=== PATIENT | male | born 1940 | race Caucasian/White ===

== ENCOUNTER → 2017-01-06 | Day surgery (SDC) | payer OTHER ==
[2016-12-24 10:13] VITALS: Ht 168.9 cm; Wt 75.0 kg
[~2017-01-06] VITALS: Ht 168.9 cm; Wt 75.0 kg
[~2017-01-06] MED LIST: ASPEC81 PO; ATOR-24 PO; BRIM0.2S OPB; FLUT0.15; GLC/500 PO; LIDOCAINE HCL 2% 2 ML VIAL (20MG/ML) ONE; LISI-788 PO; MULT-351 PO; PROPOFOL IV EMULSION 10 MG/ML 20 ML VIAL IV ONE; SODIUM CHLORIDE 0.9% 500ML 500 ML IV ONE
--- NOTE | 2017-01-06 10:09 | Endo History and Physical ---
History & Physical Date of Service: Jan 06, 2017. Chief Complaint: 1 YR F/U TO COLON CA Referring Physician: DR HAMILTON History of Present Illness 76 yo CM who presents for colonoscopy secondary to history of colon polyp. Past Medical History Diabetes, Arthritis, High Cholesterol, Hypertension, Thyroid Disease Past Surgical History Hx Cardiac Surgery: No Hx Internal Defibrillator: No Hx Pacemaker: No Hx Abdominal Surgery: No Hx Post-Op Nausea and Vomiting: No Hx Cancer Surgery: Yes (PARTIAL COLON RESECTION) Hx Thoracic Surgery: No Hx Orthopedic: No Hx Urinary Tract Surgery: No Family History None Social History Smoking Status: Former Smoker Hx Substance Use: No Hx Alcohol Use: Yes (2-3 BEERS DAILY) Allergies Coded Allergies: No Known Allergies (Verified , NONE, 01/06/17) Current Medications Reported Home Medications Medications Dose Route/Sig Max Daily Dose Days Date Category Combigan (Brimonidine Tartrate-Timolol M) 1 Christine Christine 1 Drop OPB BID 12/24/16 Reported Multi Vitamin Mens (Multiple Vitamin) 1 Tab Tab 1 Tab PO QAM 08/25/15 Reported Flonase Allergy Relief (Fluticasone Propionate (Nasal)) 50 Mcg/Act Spr 2 [place] NA DAILY PRN 08/02/15 Reported Glucophage (Metformin Hcl) 500 Mg Tab 500 Mg PO BID 07/08/15 Reported Zestoretic 20MG/25MG (HCTZ/Lisinopril) Tab 1 Tab PO QAM 07/08/15 Reported Lipitor (Atorvastatin Calcium) 40 Mg Tab 40 Mg PO HS 07/08/15 Reported Ecotrin Or Generic * (Aspirin) 81 Mg Ectab 81 Mg PO QAM 10/25/10 Reported Vital Signs Weight (Kilograms): 75 Height (Feet): 5 Height (Inches): 6.5 Physical Exam General Appearance: WD/WN, no apparent distress Respiratory/Chest: Auscultation: breath sounds normal Cardiovascular: Heart Auscultation: RRR Abdomen: Bowel Sounds: normal Inspection & Palpation: soft, non-distended, no tenderness, guarding & rebound Assessment and Plan Assessment: 76 yo CM who presents for colonoscopy secondary to history of colon polyp. Plan: Proceed with colonoscopy.
--- NOTE | 2017-01-06 10:34 | Discharge Instructions ---
Endoscopy Patient Instructions Date / Procedure(s) Performed Jan 06, 2017. Colonoscopy Allergy Information Coded Allergies: No Known Allergies (Verified , NONE, 01/06/17) Discharge Date / Findings Jan 06, 2017. Diverticulosis Internal hemorrhoids Medication Instructions Stopped Medication(s): ASPIRIN 81MG LAST DOSE 01/03/17 OK to resume all medications today as prescribed Reported Home Medications Medications Dose Route/Sig Max Daily Dose Days Date Category Combigan (Brimonidine Tartrate-Timolol M) 1 Christine Christine 1 Drop OPB BID 12/24/16 Reported Multi Vitamin Mens (Multiple Vitamin) 1 Tab Tab 1 Tab PO QAM 08/25/15 Reported Flonase Allergy Relief (Fluticasone Propionate (Nasal)) 50 Mcg/Act Spr 2 [place] NA DAILY PRN 08/02/15 Reported Glucophage (Metformin Hcl) 500 Mg Tab 500 Mg PO BID 07/08/15 Reported Zestoretic 20MG/25MG (HCTZ/Lisinopril) Tab 1 Tab PO QAM 07/08/15 Reported Lipitor (Atorvastatin Calcium) 40 Mg Tab 40 Mg PO HS 07/08/15 Reported Ecotrin Or Generic * (Aspirin) 81 Mg Ectab 81 Mg PO QAM 10/25/10 Reported Provider Instructions Activity Restrictions - No exercising or heavy lifting for 24 hours. - Do not drink alcohol the day of the procedure. - Do not drive a car or operate machinery until the day after the procedure. - Do not make any important decisions or sign important papers in 24 hours after the procedure. Following Day: - Return to full activity which may include returning to work/school. Diet Start your diet with liquids and light foods (jello, soup, juice, toast). Then eat your usual diet if not nauseated. Treatment For Common After Affects For mild abdominal pain, bloating, or excessive gas: - Rest - Eat lightly - Lie on right side Follow-Up Information Follow-up with DR HAMILTON as scheduled Anesthesia Information What You Should Know You have had a procedure that required some medicine to reduce anxiety and discomfort. This treatment is called moderate sedation. After receiving the treatment, you may be sleepy, but you will be able to breathe on your own. The effects of the treatment may last for several hours. Follow these instructions along with Activity/Diet recommendations noted above: * Do NOT do anything where dizziness or clumsiness would be dangerous. * Rest quietly at home today, then you can be up and about tomorrow. * Have a responsible person stay with you the rest of today. * You may have had an I.V. today. If so, you may take the dressing off later today. Recommendations Call your doctor if: * Trouble breathing * Continuous vomiting for more than 24 hours * Temperature above 101 degrees * Severe abdominal pain or bloating * Pain not relieved by pain medicine ordered * There is increased drainage or redness from any incision * A large amount of rectal bleeding greater than 2-3 tablespoons. (If you had a polyp/s removed or have hemorrhoids, a small amount of blood - from the rectum is to be expected.) * You have any unanswered questions or concerns. IN THE EVENT OF A SERIOUS EMERGENCY, GO TO THE NEAREST EMERGENCY ROOM Your discharge instructions were prepared by provider Esteban Carin. Patient Instructions Signature Page Malvin Higgins Patient (or Guardian) Signature/Date: I have read and understand the instructions given to me by my caregivers. Caregiver/RN/Doctor Signature/Date: The above-named patient and/or guardian has received patient instructions on this date. + Original Patient Signature Page (only) stays with chart. Please make copy for patient.
--- NOTE | 2017-01-06 10:38 | GI REPORT ---
Procedure Date: 01/06/2017 10:02 AM Procedure: Colonoscopy Indications: High risk colon cancer surveillance: Personal history of colonic polyps Medicines: Monitored Anesthesia Care Complications: No immediate complications. Estimated Blood Loss: Estimated blood loss: none. Procedure: Pre-Anesthesia Assessment: - Prior to the procedure, a History and Physical was performed, and patient medications and allergies were reviewed. The patient's tolerance of previous anesthesia was also reviewed. The risks and benefits of the procedure and the sedation options and risks were discussed with the patient. All questions were answered, and informed consent was obtained. Prior Anticoagulants: The patient has taken aspirin, last dose was 3 days prior to procedure. ASA Grade Assessment: II - A patient with mild systemic disease. After reviewing the risks and benefits, the patient was deemed in satisfactory condition to undergo the procedure. After I obtained informed consent, the scope was passed under direct vision. Throughout the procedure, the patient's blood pressure, pulse, and oxygen saturations were monitored continuously. The Scope was introduced through the anus and advanced to the terminal ileum. The colonoscopy was performed without difficulty. The patient tolerated the procedure well. The quality of the bowel preparation was good. The terminal ileum, ileocecal valve, appendiceal orifice, and rectum were photographed. Findings: There was evidence of a prior end-to-end colo-colonic anastomosis in the ascending colon. This was patent and was characterized by healthy appearing mucosa. The anastomosis was traversed. Multiple small-mouthed diverticula were found in the sigmoid colon. Non-bleeding internal hemorrhoids were found during retroflexion. The hemorrhoids were small. Impression: - Patent end-to-end colo-colonic anastomosis, characterized by healthy appearing mucosa. - Diverticulosis in the sigmoid colon. - Non-bleeding internal hemorrhoids. - No specimens collected. Recommendation: - Resume previous diet. - Continue present medications. - Repeat colonoscopy in 5 years for surveillance. - Return to primary care physician as previously scheduled. Esteban Crain, DO 01/06/2017 10:38:13 AM This report has been signed electronically. Note Initiated On: 01/06/2017 10:02 AM I attest to the content of the Intraoperative Record and orders documented therein, exceptions below
[2017-01-06 11:00] VITALS: BP 184/94; PULSE 65; O2SAT 97
--- NOTE | 2017-01-06 11:24 | Anesthesiology Progress Note ---
Anesthesia Post Op Note Date & Time Jan 06, 2017 at 11:24 Vital Signs Pain Intensity: 0 Vital Signs Past 12 Hours Date Time Temp Pulse Resp B/P Pulse Ox O2 Delivery O2 Flow Rate FiO2 01/06/17 11:00 65 16 184/94 97 Room Air 01/06/17 10:45 67 16 150/88 95 Room Air 01/06/17 10:30 68 16 118/70 96 Room Air Notes Mental Status: alert / awake / arousable, participated in evaluation Pt Amnestic to Procedure: Yes Nausea / Vomiting: adequately controlled Pain: adequately controlled Airway Patency, RR, SpO2: stable & adequate BP & HR: stable & adequate Hydration State: stable & adequate Anesthetic Complications: no major complications apparent
== END | disposition home or self-care (01) ==
LOC: C.GI 09:16
PROVIDERS: ATTEND Internal Medicine
DX: Z12.11 Encounter for screening for malignant neoplasm of colon (principal); Z86.010 Personal history of colon polyps; Z98.0 Intestinal bypass and anastomosis status; K57.30 Diverticulosis of large intestine without perforation or abscess without bleeding; K64.8 Other hemorrhoids

== ENCOUNTER → 2017-03-11 | Outpatient (CLI) | payer OTHER ==
[~2017-03-11] MED LIST changes: -LIDOCAINE HCL 2% 2 ML VIAL (20MG/ML) ONE; -PROPOFOL IV EMULSION 10 MG/ML 20 ML VIAL IV ONE; -SODIUM CHLORIDE 0.9% 500ML 500 ML IV ONE
[2017-03-11 12:46] LABS: CALCIUM 8.5 mg/dl (8.5-10.1)
[2017-03-11 12:58] LABS: ALT/SGPT 23 U/L (12-78); BLOOD UREA NITROGEN 9 mg/dl (7-18); BUN/CREATININE RATIO 9.2 (10-20); CARBON DIOXIDE 28 mmol/L (21-32); CHLORIDE 103 mmol/L (98-107); CHOLESTEROL 199 mg/dl (0-200); GLUCOSE 136 mg/dl (70-99); POTASSIUM 3.8 mmol/L (3.5-5.1); SODIUM 141 mmol/L (136-145); TRIGLYCERIDES 272 mg/dl (0-150); VERY LOW DENSITY LIPOPROT CALC 54 mg/dl
[2017-03-11 13:09] LABS: ALB/GLOB RATIO 1.1 (0.9-2); ALKALINE PHOSPHATASE 108 U/L (45-117); AST/SGOT 19 U/L (15-37); HDL CHOLESTEROL 50 mg/dl; LDL CHOLESTEROL CALCULATED 95 mg/dl
[2017-03-11 13:18] LABS: ESTIMATED AVERAGE GLUCOSE 137 mg/dl; HA1C FLAG Normal (Normal)
[2017-03-11 13:55] LABS: LYME DISEASE AB IGG NEG (NEG); LYME DISEASE AB IGM NEG (NEG)
== END | disposition home or self-care (01) ==
LOC: C.LABBFT 07:41
PROVIDERS: ATTEND Nurse Practitioner
DX: E78.00 Pure hypercholesterolemia, unspecified (principal); E11.9 Type 2 diabetes mellitus without complications; E07.9 Disorder of thyroid, unspecified; W57.XXXA Bitten or stung by nonvenomous insect and other nonvenomous arthropods, initial encounter

== ENCOUNTER → 2018-02-05 | Outpatient (CLI) | payer OTHER ==
[2018-02-05 12:56] LABS: HEMATOCRIT 40.4 % (42-52); HEMOGLOBIN 14.3 g/dL (14.0-18.0); MEAN CORPUSCULAR HEMOGLOBIN 31.8 pg (25-34); MEAN CORPUSCULAR HGB CONC 35.4 g/dl (32-36); MEAN PLATELET VOLUME 9.8 fL (7.4-10.4); PLATELET COUNT 259 K/uL (130-400); RED CELL DISTRIBUTION WIDTH CV 12.5 % (11.5-14.5); RED CELL DISTRIBUTION WIDTH SD 40.9 fL (36.4-46.3)
[2018-02-05 13:22] LABS: HEMOGLOBIN A1C 6.3 % (4.5-5.6)
[2018-02-05 14:05] LABS: BLOOD UREA NITROGEN 8 mg/dl (7-18); CALCIUM 8.5 mg/dl (8.5-10.1); CARBON DIOXIDE 29 mmol/L (21-32); CHOLESTEROL 165 mg/dl (0-200); CREATININE 0.99 mg/dl (0.60-1.40); GLUCOSE 138 mg/dl (70-99); POTASSIUM 3.5 mmol/L (3.5-5.1); SODIUM 138 mmol/L (136-145)
[2018-02-05 14:08] LABS: LDL CHOLESTEROL CALCULATED 84 mg/dl
== END | disposition home or self-care (01) ==
LOC: C.LABBFT 07:15
PROVIDERS: ATTEND Nurse Practitioner
DX: E78.00 Pure hypercholesterolemia, unspecified (principal); E11.9 Type 2 diabetes mellitus without complications

== ENCOUNTER 2018-02-17 07:51 | Emergency (ER) | payer OTHER ==
[~2018-02-17] VITALS: Ht 172.7 cm; Wt 76.1 kg
[~2018-02-17 07:51] MED LIST changes: -ASPI-435 PO; -CEPH500C PO; -CEPH500C2 PO; -NAPR-1169 PO; -OMEG10007 PO; -SULF-302 PO; -SULF800T23 PO
[2018-02-17 07:58] VITALS: TEMP 36.8; Ht 172.7 cm; Wt 76.1 kg
[2018-02-17] MEDS ORDERED: CEPHALEXIN MONOHYDRATE 250 MG CAP PO STA (08:16)
[2018-02-17] MEDS ORDERED: SULFAMETHOXAZOLE/TRIMETHOPRIM DS 800/160MG TAB PO STA (08:16)
--- NOTE | 2018-02-17 08:17 | EMERGENCY ROOM VISIT NOTE ---
History Report prepared by Hubert: Xavier Zafar Under the Supervision of: Dr. Candelario Joya M.D. First contact with patient: 08:03 Chief Complaint: KNEEPAIN Stated Complaint: FALL - LEFT KNEE PAIN History of Present Illness The patient is a 77 year old male who presents to the Emergency Room with complaints of constant pain in his left knee that began on , 5 days ago. The patient states that he was doing work in his backyard when he tripped and experienced a mechanical fall. He hit his left knee off of a cart that he was pushing around. The pain is worsened with walking and range of motion of the joint. The patient notes that the redness over the area has been worsening. He is on a Baby Aspirin daily as a blood thinner. He denies any history of cellulitis. Source of History: patient Onset: 5 days ago Position: knee (left) Timing: constant (pain ), worsening (redness) Modifying Factors (Worsening): movement ( and walking) Note: There is redness across the knee. Review of Systems See HPI for pertinent positives & negatives. A total of 10 systems reviewed and were otherwise negative. Past Medical & Surgical Medical Problems: (1) Diabetes (2) HTN (hypertension) (3) Hypercholesteremia (4) Mass of colon Family History No pertinent family history Social History Smoking Status: Never Smoker Alcohol Use: occasionally Marital Status: Housing Status: lives with significant other Occupation Status: employed Current/Historical Medications Scheduled Aspirin (Aspirin 81), 81 MG PO DAILY Atorvastatin (Lipitor), 40 MG PO HS Brimonidine Tartrate-Timolol M (Combigan), 1 DROP OPB BID Cephalexin Monohydrate (Keflex), 1 CAP PO QID Lisinopril/Hctz (Zestoretic 20MG/25MG), 1 TAB PO QAM Metformin Hcl (Glucophage), 500 MG PO BID Multiple Vitamin (Multi Vitamin Mens), 1 TAB PO QAM Sulfa/Trimethoprim (Bactrim Ds 800MG/160MG), 1 TAB PO BID Scheduled PRN Fluticasone Propionate (Nasal) (Flonase Allergy Relief), 2 [place] NA DAILY PRN for ALLERGIES Allergies Coded Allergies: No Known Allergies (Verified , NONE, 02/17/18) Physical Exam Vital Signs Date Time Temp Pulse Resp B/P (MAP) Pulse Ox O2 Delivery O2 Flow Rate FiO2 5/8/18 09:03 72 16 169/93 96 Room Air 02/17/18 07:58 36.8 77 18 185/94 96 Room Air Physical Exam GENERAL: Awake, alert, well-appearing, in no acute distress HENT: Normocephalic, atraumatic. Oropharynx unremarkable. EYES: Normal conjunctiva. Sclera non-icteric. NECK: Supple. No nuchal rigidity. FROM. No JVD. RESPIRATORY: Clear to auscultation. CARDIAC: Regular rate, normal rhythm. Extremities warm and well perfused. Pulses equal. ABDOMEN: Soft, non-distended. No tenderness to palpation. No rebound or guarding. No masses. RECTAL: Deferred. MUSCULOSKELETAL: Chest examination reveals no tenderness. The back is symmetrical on inspection without obvious abnormality. There is no CVA tenderness to palpation. No joint edema. The left knee is red and inflamed in an are of 2x2 inches. There is good ROM of the knee and ankle. There is no obvious deformity. LOWER EXTREMITIES: Calves are equal size bilaterally and non-tender. No edema. No discoloration. NEURO: Normal sensorium. No sensory or motor deficits noted. SKIN: No rash or jaundice noted. Medical Decision & Procedures ER Provider Diagnostic Interpretation: Radiology results as stated below per my review and radiologist interpretation: L KNEE 3 VIEWS HISTORY: 77 years-old Male left knee pain acute left knee pain COMPARISON: None available TECHNIQUE: 3 views of the left knee FINDINGS: There is mild medial and patellofemoral compartment osteoarthritis without acute fracture or dislocation. There is moderate soft tissue swelling about the knee with small joint effusion. IMPRESSION: 1. No acute fracture or dislocation. 2. Moderate soft tissue swelling with small joint effusion. The above report was generated using voice recognition software. It may contain grammatical, syntax or spelling errors. Electronically signed by: Niko Muhammad M.D. 02/17/2018 8:23 AM Dictated Date/Time: 02/17/2018 8:22 AM Laboratory Results 02/17/18 09:01 Red Blood Count 4.74, Mean Corpuscular Volume 87.6, Mean Corpuscular Hemoglobin 31.9, Mean Corpuscular Hemoglobin Concent 36.4, Mean Platelet Volume 9.1, Neutrophils (%) (Auto) 67.1, Lymphocytes (%) (Auto) 24.0, Monocytes (%) (Auto) 7.9, Eosinophils (%) (Auto) 0.4, Basophils (%) (Auto) 0.3, Neutrophils # (Auto) 4.75, Lymphocytes # (Auto) 1.70, Monocytes # (Auto) 0.56, Eosinophils # (Auto) 0.03, Basophils # (Auto) 0.02 02/17/18 09:01 Test 02/17/18 09:01 White Blood Count 7.08 K/uL (4.8-10.8) Red Blood Count 4.74 M/uL (4.7-6.1) Hemoglobin 15.1 g/dL (14.0-18.0) Hematocrit 41.5 % (42-52) Mean Corpuscular Volume 87.6 fL (80-100) Mean Corpuscular Hemoglobin 31.9 pg (25-34) Mean Corpuscular Hemoglobin Concent 36.4 g/dl (32-36) Platelet Count 214 K/uL (130-400) Mean Platelet Volume 9.1 fL (7.4-10.4) Neutrophils (%) (Auto) 67.1 % Lymphocytes (%) (Auto) 24.0 % Monocytes (%) (Auto) 7.9 % Eosinophils (%) (Auto) 0.4 % Basophils (%) (Auto) 0.3 % Neutrophils # (Auto) 4.75 K/uL (1.4-6.5) Lymphocytes # (Auto) 1.70 K/uL (1.2-3.4) Monocytes # (Auto) 0.56 K/uL (0.11-0.59) Eosinophils # (Auto) 0.03 K/uL (0-0.5) Basophils # (Auto) 0.02 K/uL (0-0.2) RDW Standard Deviation 39.3 fL (36.4-46.3) RDW Coefficient of Variation 12.3 % (11.5-14.5) Immature Granulocyte % (Auto) 0.3 % Immature Granulocyte # (Auto) 0.02 K/uL (0.00-0.02) Nucleated RBC Absolute Count (auto) 0.00 K/uL (0-0) Nucleated Red Blood Cells % 0.0 % Erythrocyte Sedimentation Rate 28 mm/hr (0-14) Anion Gap 6.0 mmol/L (3-11) Est Creatinine Clear Calc Drug Dose 59.6 ml/min Estimated GFR () 82.4 Estimated GFR (Non- 71.1 BUN/Creatinine Ratio 5.8 (10-20) Calcium Level 9.6 mg/dl (8.5-10.1) C-Reactive Protein 3.55 mg/dl (0-0.29) Labs reviewed by ED physician. Medications Administered Medications (Trade) Dose Ordered Sig/Virginie Route Start Time Stop Time Status Last Admin Dose Admin Cephalexin Monohydrate (Keflex Cap) 500 mg NOW STAT PO 02/17/18 08:16 5 08:18 DC 02/17/18 08:44 500 MG Trimethoprim/ Sulfamethoxazole (Septra Ds 800/ 160MG Tab) 1 tab NOW STAT PO 02/17/18 08:16 02/17/18 08:18 DC 02/17/18 08:44 1 TAB ED Course 0808: Past medical records reviewed. The patient was evaluated in room A2. A complete history and physical examination was performed. 0816: Ordered Trimethoprim/Sulfamethoxazole 1 tablet PO, Cephalexin 500 mg PO. 0855: I discussed the case with Dr. Castro - Orthopedic Surgery. He suggests drawing labs and sending the patient to the office right away. The patient will be discharged with instructions to go straight to the office. Medical Decision Differential diagnosis: Etiologies such as fracture, dislocation, neurovascular compromise, compartment syndrome, soft tissue injury, as well as others were entertained This is a 77-year-old male who presents emergency department after a fall on his knee. Patient is complaining of cellulitic-like area around his knee. He does not appear to have pain with movement of the knee however it does hurt to stand on. He does have a joint effusion present. Because of the nature of the pain I did discuss the case with the orthopedic surgeon physical education department chair. He asked that the patient be sent over to the office and that laboratory work be drawn. He was placed on Keflex and Bactrim along with crutches and a knee immobilizer, lab work was drawn and the patient was sent to the office. Medication Reconcilliation Current Medication List: was personally reviewed by me Blood Pressure Screening Patient's blood pressure: Elevated blood pressure Blood pressure disposition: Referred to PCP Consults Time Called: 840 Consulting Physician: Dr. Castro - Orthopedic Surgery Returned Call: [phone] I discussed the case with Dr. Castro - Orthopedic Surgery. He suggests drawing labs and sending the patient to the office right away. Impression Primary Impression: Knee pain Scribe Attestation The scribe's documentation has been prepared under my direction and personally reviewed by me in its entirety. I confirm that the note above accurately reflects all work, treatment, procedures, and medical decision making performed by me. Departure Information Dispostion Home / Self-Care Prescriptions Sulfa/Trimethoprim (Bactrim Ds 800MG/160MG) Tab 1 TAB PO BID for 10 Days, #20 TAB Prov: Candelario Joya MD 02/17/18 Cephalexin Monohydrate (Keflex) 500 Mg Cap 1 CAP PO QID for 10 Days, #40 CAP Prov: Candelario Joya MD 02/17/18 Referrals Bernarda Obando C.R.N.P. (PCP) Forms HOME CARE DOCUMENTATION FORM, IMPORTANT VISIT INFORMATION Patient Instructions My [facility] Additional Instructions Go Directly to Dr Castro's office You have been examined and treated today on an emergency basis only. This is not a substitute for, or an effort to provide, complete comprehensive medical care. It is impossible to recognize and treat all injuries or illnesses in a single emergency department visit. It is therefore important that you follow up closely with your PCP. Call as soon as possible for an appointment. Thank you for your time and consideration. I look forward to speaking with you again soon. Please don't hesitate to call us if you have any questions. Problem Qualifiers Primary Impression: Knee pain Chronicity: acute Laterality: left Qualified Codes: M25.562 - Pain in left knee
--- NOTE | 2018-02-17 08:24 | DIAGNOSTIC IMAGING REPORT ---
L KNEE 3 VIEWS HISTORY: 77 years-old Male left knee pain acute left knee pain COMPARISON: None available TECHNIQUE: 3 views of the left knee FINDINGS: There is mild medial and patellofemoral compartment osteoarthritis without acute fracture or dislocation. There is moderate soft tissue swelling about the knee with small joint effusion. IMPRESSION: 1. No acute fracture or dislocation. 2. Moderate soft tissue swelling with small joint effusion. The above report was generated using voice recognition software. It may contain grammatical, syntax or spelling errors. Electronically signed by: Niko Muhammad M.D. 02/17/2018 8:23 AM Dictated Date/Time: 02/17/2018 8:22 AM
[2018-02-17 09:03] VITALS: BP 169/93; PULSE 72; O2SAT 96
[2018-02-17] MEDS ORDERED: CEPH500C PO (09:04)
[2018-02-17] MEDS ORDERED: SULF800T23 PO (09:04)
[2018-02-17] MEDS ORDERED: ASPI-435 PO (09:11)
[2018-02-17 09:23] LABS: BASO % 0.3 %; BASO ABS # 0.02 K/uL (0-0.2); EOS % 0.4 %; EOS ABS # 0.03 K/uL (0-0.5); HEMATOCRIT 41.5 % (42-52); HEMOGLOBIN 15.1 g/dL (14.0-18.0); IG# 0.02 K/uL (0.00-0.02); MEAN CELL VOLUME 87.6 fL (80-100); MEAN CORPUSCULAR HEMOGLOBIN 31.9 pg (25-34); MEAN CORPUSCULAR HGB CONC 36.4 g/dl (32-36); MEAN PLATELET VOLUME 9.1 fL (7.4-10.4); MONO % 7.9 %; MONO ABS # 0.56 K/uL (0.11-0.59); NEUT % 67.1 %; NEUT ABS # 4.75 K/uL (1.4-6.5); PLATELET COUNT 214 K/uL (130-400); RED CELL DISTRIBUTION WIDTH CV 12.3 % (11.5-14.5); RED CELL DISTRIBUTION WIDTH SD 39.3 fL (36.4-46.3); WHITE BLOOD COUNT 7.08 K/uL (4.8-10.8)
[2018-02-17 09:34] LABS: CALCIUM 9.6 mg/dl (8.5-10.1); CREATININE 1.02 mg/dl (0.60-1.40); POTASSIUM 3.6 mmol/L (3.5-5.1)
== END 2018-02-17 09:14 | disposition home or self-care (01) ==
LOC: C.EDB 07:53 → C.EDA 09:14
DX: M25.562 Pain in left knee (principal); W01.0XXA Fall on same level from slipping, tripping and stumbling without subsequent striking against object, initial encounter; Y92.017 Garden or yard in single-family (private) house as the place of occurrence of the external cause; E11.9 Type 2 diabetes mellitus without complications; I10 Essential (primary) hypertension; E78.00 Pure hypercholesterolemia, unspecified; Z79.82 Long term (current) use of aspirin; Z79.899 Other long term (current) drug therapy

== ENCOUNTER → 2018-02-17 | Outpatient (CLI) | payer OTHER ==
[~2018-02-17] MED LIST changes: +ASPI-435 PO; +CEPH500C PO; +CEPH500C2 PO; +NAPR-1169 PO; +OMEG10007 PO; +SULF-302 PO; +SULF800T23 PO
== END | disposition home or self-care (01) ==
LOC: C.RDSM 09:50
PROVIDERS: ATTEND Physician Assistant
DX: M25.562 Pain in left knee (principal)

== ENCOUNTER → 2018-03-05 | Day surgery (SDC) | payer OTHER ==
[2018-02-25 15:28] VITALS: Ht 167.6 cm; Wt 75.0 kg
[~2018-03-05] VITALS: Ht 167.6 cm; Wt 75.0 kg
[~2018-03-05] MED LIST changes: -ASPEC81 PO; +ASPI-435 PO; +CEPH500C2 PO; +LIDOCAINE HCL 2% 2 ML VIAL (20MG/ML) ONE; +NAPR-1169 PO; +OMEG10007 PO; +PROPOFOL IV EMULSION 10 MG/ML 20 ML VIAL ONE; +SODIUM CHLORIDE 0.9% 500ML 500 ML IV ONE; +SULF-302 PO
[2018-03-05 14:48] VITALS: TEMP 37
--- NOTE | 2018-03-05 15:02 | Endo History and Physical ---
History & Physical Date of Service: March 05, 2018. Chief Complaint: Dysphagia Referring Physician: Bernarda Obando History of Present Illness 77 yo CM who presents for EGD secondary to dysphagia. Past Medical History Diabetes, Arthritis, High Cholesterol, Hypertension, Thyroid Disease Past Surgical History Hx Cardiac Surgery: No Hx Internal Defibrillator: No Hx Pacemaker: No Hx Abdominal Surgery: No Hx of Implantable Prosthesis: No Hx Post-Op Nausea and Vomiting: No Hx Cancer Surgery: Yes (PARTIAL COLON RESECTION) Hx Thoracic Surgery: No Hx Orthopedic: No Hx Urinary Tract Surgery: No Social History Smoking Status: Never Smoker Hx Substance Use: No Hx Alcohol Use: Yes (2-3 BEERS DAILY) Allergies Coded Allergies: No Known Allergies (Verified , NONE, 02/25/18) Current Medications Reported Home Medications Medications Dose Route/Sig Max Daily Dose Days Date Category Keflex (Cephalexin Monohydrate) 500 Mg Cap 500 Mg PO QID 02/25/18 Reported Smz-Tmp Ds (Sulfamethoxazole-Trimethoprim) 1 Tab Tab 1 Tab PO BID 7 02/25/18 Reported Naprosyn (Naproxen) 500 Mg Tab 500 Mg PO BID 02/25/18 Reported [place]-3 (Fish Oil) 1 Ea Cap 1 Cap PO DAILY 02/25/18 Reported Aspirin 81 (Aspirin) 81 Mg Tab 81 Mg PO DAILY 02/17/18 Reported Combigan (Brimonidine Tartrate-Timolol M) 1 [place] 1 Drop OPB BID 12/24/16 Reported Multi Vitamin Mens (Multiple Vitamin) 1 Tab Tab 1 Tab PO QAM 08/25/15 Reported Flonase Allergy Relief (Fluticasone Propionate (Nasal)) 50 Mcg/Act Spr 2 [place] NA DAILY PRN 08/02/15 Reported Glucophage (Metformin Hcl) 500 Mg Tab 500 Mg PO BID 07/08/15 Reported Zestoretic 20MG/25MG (HCTZ/Lisinopril) Tab 1 Tab PO QAM 07/08/15 Reported Lipitor (Atorvastatin Calcium) 40 Mg Tab 40 Mg PO HS 07/08/15 Reported Vital Signs Weight (Kilograms): 75 Height (Feet): 5 Height (Inches): 6 Date Time Temp Pulse Resp B/P (MAP) Pulse Ox O2 Delivery O2 Flow Rate FiO2 03/05/18 14:52 182/99 (126) 03/05/18 14:48 37.0 75 20 178/101 (126) 95 Room Air Physical Exam General Appearance: WD/WN, no apparent distress Respiratory/Chest: Auscultation: breath sounds normal Cardiovascular: Heart Auscultation: RRR Abdomen: Bowel Sounds: normal Inspection & Palpation: soft, non-distended, no tenderness, guarding & rebound Assessment and Plan Assessment: 77 yo CM who presents for EGD secondary to dysphagia. Plan: Proceed with EGD
--- NOTE | 2018-03-05 15:55 | Anesthesiology Progress Note ---
Anesthesia Post Op Note Date & Time March 05, 2018 at 15:54 Vital Signs Pain Intensity: 0 Vital Signs Past 12 Hours Date Time Temp Pulse Resp B/P (MAP) Pulse Ox O2 Delivery O2 Flow Rate FiO2 03/05/18 14:52 182/99 (126) 03/05/18 14:48 37.0 75 20 178/101 (126) 95 Room Air Notes Mental Status: alert / awake / arousable, participated in evaluation Pt Amnestic to Procedure: Yes Nausea / Vomiting: adequately controlled Pain: adequately controlled Airway Patency, RR, SpO2: stable & adequate BP & HR: stable & adequate Hydration State: stable & adequate Anesthetic Complications: no major complications apparent
--- NOTE | 2018-03-05 16:06 | Discharge Instructions ---
Endoscopy Patient Instructions Date / Procedure(s) Performed March 05, 2018. EGD Allergy Information Coded Allergies: No Known Allergies (Verified , NONE, 02/25/18) Discharge Date / Findings March 05, 2018. Gastritis s/p biopsies Esophagitis s/p Mid and Distal esophagus biopsies Medication Instructions 1) Start Pantoprazole 40mg by mouth each morning 1/2 hour prior to breakfast. 2) OK to resume all medications today as prescribed Reported Home Medications Medications Dose Route/Sig Max Daily Dose Days Date Category Keflex (Cephalexin Monohydrate) 500 Mg Cap 500 Mg PO QID 02/25/18 Reported Smz-Tmp Ds (Sulfamethoxazole-Trimethoprim) 1 Tab Tab 1 Tab PO BID 7 02/25/18 Reported Naprosyn (Naproxen) 500 Mg Tab 500 Mg PO BID 02/25/18 Reported Sleepy Eye-3 (Fish Oil) 1 Ea Cap 1 Cap PO DAILY 02/25/18 Reported Aspirin 81 (Aspirin) 81 Mg Tab 81 Mg PO DAILY 02/17/18 Reported Combigan (Brimonidine Tartrate-Timolol M) 1 Christine Christine 1 Drop OPB BID 12/24/16 Reported Multi Vitamin Mens (Multiple Vitamin) 1 Tab Tab 1 Tab PO QAM 08/25/15 Reported Flonase Allergy Relief (Fluticasone Propionate (Nasal)) 50 Mcg/Act Spr 2 Dickson NA DAILY PRN 08/02/15 Reported Glucophage (Metformin Hcl) 500 Mg Tab 500 Mg PO BID 07/08/15 Reported Zestoretic 20MG/25MG (HCTZ/Lisinopril) Tab 1 Tab PO QAM 07/08/15 Reported Lipitor (Atorvastatin Calcium) 40 Mg Tab 40 Mg PO HS 07/08/15 Reported Provider Instructions Activity Restrictions - No exercising or heavy lifting for 24 hours. - Do not drink alcohol the day of the procedure. - Do not drive a car or operate machinery until the day after the procedure. - Do not make any important decisions or sign important papers in 24 hours after the procedure. Following Day: - Return to full activity which may include returning to work/school. Diet Start your diet with liquids and light foods (jello, soup, juice, toast). Then eat your usual diet if not nauseated. Treatment For Common After Affects For mild abdominal pain, bloating, or excessive gas: - Rest - Eat lightly - Lie on right side Follow-Up Information Follow-up with Bernarda Obando as scheduled Anesthesia Information What You Should Know You have had a procedure that required some medicine to reduce anxiety and discomfort. This treatment is called moderate sedation. After receiving the treatment, you may be sleepy, but you will be able to breathe on your own. The effects of the treatment may last for several hours. Follow these instructions along with Activity/Diet recommendations noted above: * Do NOT do anything where dizziness or clumsiness would be dangerous. * Rest quietly at home today, then you can be up and about tomorrow. * Have a responsible person stay with you the rest of today. * You may have had an I.V. today. If so, you may take the dressing off later today. Recommendations Call your doctor if: * Trouble breathing * Continuous vomiting for more than 24 hours * Temperature above 101 degrees * Severe abdominal pain or bloating * Pain not relieved by pain medicine ordered * There is increased drainage or redness from any incision * A large amount of rectal bleeding greater than 2-3 tablespoons. (If you had a polyp/s removed or have hemorrhoids, a small amount of blood - from the rectum is to be expected.) * You have any unanswered questions or concerns. IN THE EVENT OF A SERIOUS EMERGENCY, GO TO THE NEAREST EMERGENCY ROOM Your discharge instructions were prepared by provider Esteban Crain. Patient Instructions Signature Page Malvin Higgins Patient (or Guardian) Signature/Date: I have read and understand the instructions given to me by my caregivers. Caregiver/RN/Doctor Signature/Date: The above-named patient and/or guardian has received patient instructions on this date. + Original Patient Signature Page (only) stays with chart. Please make copy for patient.
--- NOTE | 2018-03-05 16:14 | GI REPORT ---
Patient Name: Malvin Higgins Procedure Date: 03/05/2018 3:24 PM Date of : 1940 Admit Type: Outpatient Age: 77 Gender: Male Attending MD: Esteban Crain DO Procedure: Upper GI endoscopy Providers: Esteban Crain DO Referring MD: Kelvin Adams Indications: Dysphagia Medicines: Monitored Anesthesia Care Complications: No immediate complications. Estimated Blood Loss: Estimated blood loss: none. Procedure: Pre-Anesthesia Assessment: - Prior to the procedure, a History and Physical was performed, and patient medications and allergies were reviewed. The patient's tolerance of previous anesthesia was also reviewed. The risks and benefits of the procedure and the sedation options and risks were discussed with the patient. All questions were answered, and informed consent was obtained. Prior Anticoagulants: The patient has taken aspirin, last dose was 1 day prior to procedure. ASA Grade Assessment: III - A patient with severe systemic disease. After reviewing the risks and benefits, the patient was deemed in satisfactory condition to undergo the procedure. After obtaining informed consent, the endoscope was passed under direct vision. Throughout the procedure, the patient's blood pressure, pulse, and oxygen saturations were monitored continuously. The scope was introduced through the mouth, and advanced to the second part of duodenum. The upper GI endoscopy was accomplished without difficulty. The patient tolerated the procedure well. Findings: Moderately severe esophagitis with no bleeding was found. This was biopsied with a cold forceps for histology. Localized mild inflammation characterized by erythema was found in the gastric antrum. Biopsies were taken with a cold forceps for histology. The examined duodenum was normal. Impression: - Moderately severe non-erosive esophagitis. Biopsied. - Gastritis. Biopsied. - Normal examined duodenum. Recommendation: - Resume previous diet. - Continue present medications. - Await pathology results. - Return to primary care physician as previously scheduled. Esteban Crain DO 03/05/2018 4:13:45 PM This report has been signed electronically. Note Initiated On: 03/05/2018 3:24 PM Number of Addenda: 0 I attest to the content of the Intraoperative Record and orders documented therein, exceptions below {[id number]}
[2018-03-05 16:24] VITALS: BP 166/105; PULSE 66; O2SAT 97
== END | disposition home or self-care (01) ==
LOC: C.GI 14:03
PROVIDERS: ATTEND Internal Medicine
DX: R13.10 Dysphagia, unspecified (principal); E11.9 Type 2 diabetes mellitus without complications; M19.90 Unspecified osteoarthritis, unspecified site; E78.5 Hyperlipidemia, unspecified; K20.9 Esophagitis, unspecified; K21.9 Gastro-esophageal reflux disease without esophagitis; E78.00 Pure hypercholesterolemia, unspecified; I10 Essential (primary) hypertension; Z79.82 Long term (current) use of aspirin; Z79.84 Long term (current) use of oral hypoglycemic drugs

== ENCOUNTER 2022-11-16 07:22 | Inpatient (IN) ==
[2022-11-16] MEDS ORDERED: OPTIRAY 320 500ml IV ONE (07:54)
--- NOTE | 2022-11-16 08:06 | XRay Report ---
XR chest 1V portable HISTORY: 82 years-old Male neuro deficit, acute stroke suspected acute strokelike symptoms COMPARISON: Chest CT 08/22/2015 TECHNIQUE: AP view of the chest FINDINGS: Cardiac mediastinal and hilar silhouettes are within normal limits. No pneumothorax, pleural effusion , airspace consolidation or overt pulmonary edema. Degenerative changes of the shoulders and spine. IMPRESSION: No acute process. ACT 112: Negative or not required by law. The above report was generated using voice recognition software. It may contain grammatical, syntax o r spelling errors. Electronically signed by: Mason Muhamamd M.D. 11/16/2022 8:04 AM
[2022-11-16 08:17] LABS: Basophils # (auto) 0.03 K/uL (0-0.2); Basophils % (auto) 0.8 %; Eosinophils # (auto) 0.03 K/uL (0-0.50); Eosinophils % (auto) 0.8 %; Hematocrit (blood only) 34.6 % (42.0-52.0); Hemoglobin 12.5 g/dl (14.0-18.0); Immature Granulocytes # (auto) 0.02 K/uL (0.01-0.20); Immature Granulocytes % (auto) 0.5 %; Lymphocytes # (auto) 1.25 K/uL (1.2-3.4); Lymphocytes % (auto) 32.4 %; Mean Corpuscular Hemoglobin 32.1 pg (25.0-34.0); Mean Corpuscular Hgb Conc 36.1 g/dL (32.0-36.0); Mean Corpuscular Volume 88.7 fL (80.0-100.0); Mean Platelet Volume 9.3 fL (9.4-12.4); Monocytes # (auto) 0.31 K/uL (0.11-0.59); Neutrophils # (auto) 2.22 K/uL (1.40-6.50); Neutrophils % (auto) 57.5 %; Platelet Count 214 K/uL (130-400); RDW Coefficient of Variation 11.5 % (11.5-14.5); RDW Standard Deviation 36.6 fL (36.4-46.3); White Blood Count 3.86 K/ul (4.8-10.8)
--- NOTE | 2022-11-16 08:31 | CT Scan Report ---
CT angio head w con, CT angio neck with con, CT head/brain wo con CLINICAL HISTORY: 82 years-old Male with neuro deficit, acute stroke suspected. Acute strokelike s ymptoms COMPARISON STUDY: None TECHNIQUE: Unenhanced axial CT scan of the brain is performed. Subsequently, following the IV adminis tration of 120 cc of Optiray, CT angiogram of the head and neck was performed from the aortic arch to the skull apex. Images are reviewed in the axial, sagittal, and coronal planes. 3-D MIPS images are created and assessed. IV contrast was administered without complication. All measurements were obtain ed according to NASCET criteria. A dose lowering technique was utilized adhering to the principles of ALARA. CT DOSE: 1152.37 mGy.cm FINDINGS: CT BRAIN: There is no acute intracranial hemorrhage, hydrocephalus, intracranial mass, or acute territorial inf arct. There is asymmetric prominence of the extra-axial space lateral to left frontal hemisphere with CSF attenuation measuring up to 4 mm on image 18 series 2. Rightward midline shift of 4 mm may be a chronic finding. Involutional changes with chronic microvascular ischemic disease. There is an ill-de fined 1.4 x 1.1 cm area of decreased attenuation within the left internal capsule/lentiform nucleus d istribution on image 12 series 2. There is no abnormal intra-axial or extra-axial enhancement. Trace right mastoid effusion. Left mastoid air cells are clear. Prior bilateral lens repair. No alexandru rial fracture. Paranasal sinuses are clear. CT ANGIOGRAM OF THE HEAD AND NECK: Three-vessel morphology of the thoracic aortic arch. Patency of the innominate and imaged subclavian arteries. Common carotid arteries are patent. Moderate atherosclerotic plaque of the left carotid bul b and proximal left ICA with less than 50% stenosis. Moderate to extensive atherosclerotic plaque of the left carotid bulb and proximal left ICA results in 60% stenosis. The bilateral anterior and middl e cerebral arteries are also patent. The vertebrobasilar system and posterior cerebral arteries are w idely patent. There is no aneurysm, high-grade stenosis, or proximal branch occlusion identified. Dur al sinuses appear patent. Lung apices are generally clear. Unremarkable soft tissues. Degenerative changes of the cervical spin e. IMPRESSION: 1. No acute intracranial hemorrhage or acute territorial infarct identified. 2. There is an ill-defined 1.4 cm focus of decreased attenuation within the left internal capsule/shayne tiform nucleus suggestive of an age-indeterminate lacunar infarct. 3. 60% stenosis of the proximal cervical segment left ICA secondary to atherosclerosis. 4. Otherwise unremarkable CTA of the head and neck. 5. 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 ACT 112: Negative or not required by law. The above report was generated using voice recognition software. It may contain grammatical, syntax o r spelling errors. Electronically signed by: Mason Muhammad M.D. 11/16/2022 8:29 AM
[2022-11-16 08:39] LABS: INR 1.1 (0.9-1.1); Partial Thromboplastin Time 27.8 Seconds (21.0-31.0); Prothrombin Time 11.9 Seconds (9.0-12.0)
[2022-11-16 08:41] LABS: Alanine Aminotransferase 13 U/L (7-52); Albumin Globulin Ratio 1.5 (0.9-2); Albumin Level 3.7 gm/dl (3.4-5.0); Alkaline Phosphatase 90 U/L (34-104); Anion Gap 6 (3-11); Aspartate Aminotransferase 20 U/L (13-39); BUN Creatinine Ratio 8.7 (10-20); Bilirubin,Total 0.6 mg/dl (0.2-1.0); Blood Urea Nitrogen 8 mg/dl (6-23); Calcium 8.9 mg/dl (8.5-10.1); Carbon Dioxide 31 mmol/L (21-32); Chloride 98 mmol/L (98-107); Est GFR (African American) 90.1 ml/min; Est GFR (Non-African American) 77.7 ml/min; Globulin 2.4 gm/dl (2.5-4.0); Glucose 119 mg/dl (70-99(Fasting)); Magnesium 1.7 mg/dl (1.7-2.4); Potassium 3.5 mmol/L (3.5-5.1); Sodium 135 mmol/L (136-145); Total Protein 6.1 gm/dl (6.0-8.3)
[2022-11-16 08:45] LABS: Troponin I High Sensitivity 5.1 pg/ml (0-20)
[2022-11-16] MEDS ORDERED: SODIUM CHLORIDE 0.9% 10ML FLUSH IV STA (08:59)
[2022-11-16] MEDS ORDERED: STAT IV STA (08:59)
[2022-11-16] MEDS ORDERED: No Aspirin within 24hrs of THROMBOLYTIC-Stroke PO SCH (09:00)
[2022-11-16] MEDS: LABETALOL HCL IV 5 MG/ML 20ML IV PRN ×4 (09:06→18:54)
[2022-11-16] MEDS ORDERED: TENECTEPLASE 18 MG in SYRINGE 0 ML IV ONE (09:09)
[2022-11-16] MEDS: SODIUM CHLORIDE 0.9% 1000ML 1,000 ML IV SCH ×2 (09:20→22:31)
--- NOTE | 2022-11-16 09:31 | Emergency Department Note ---
Impression & Plan Acute CVA (cerebrovascular accident) ED Provider Note INFORMANT: Patient ED PROVIDER(S): Candelario Kelley DO CHIEF COMPLAINT: CVA symptoms PLAN: Disposition: Admission Condition: Stable/improved Outpatient prescription management: none Referral: I spoke with the hospitalist, who will see the patient for admission/observation and further evaluation and consultation. I also spoke with Dr. Langford from stroke telemetry neurology from [facility]. MEDICAL DECISION MAKIN-year-old male presents to the ED with a chief complaint of left sided weakness and concern for stroke symptoms. The patient apparently woke this morning a little bit before 6 and went to the bathroom. After reaching the bathroom, he became weak and was unable to go to the bathroom. The patient could not make it back to bed. EMS was called. The patient's last known well was 6:15 AM. Stroke alert was called prior to the patient's arrival. CT scan of the brain did not show any acute hemorrhage. CT angiograms reveals an age- indeterminate left-sided lacunar infarct and 60% left ICA stenosis. CBC and chemistry. No did not show any leukocytosis, anemia or electrolyte abnormality. Lipase was negative. A chest x-ray did not show acute process. EKG shows normal sinus rhythm. The patient was evaluated by stroke telehealth neurologist, Dr. Dowd. He did recommend tPA after his evaluation. He TNKase was administered. The patient was given IV labetalol for blood pressure control. I spoke with the hospitalist who will see the patient for further evaluation and care. He was also started on IV fluids. Triage Nursing notes reviewed. Vital Signs: reviewed Prior /Outside records reviewed: none Differential diagnosis: Differential includes stroke, TIA, infection, trauma, dehydration, electrolyte abnormality, other. Diagnostics, as interpreted by me: 12 lead ECG: Sinus rhythm at a rate of 82. No ST elevation. No PVCs. Normal QTC. Cardiac Monitoring: Sinus rhythm in the 80s. Medical decision rules: tPA inclusion criteria Imaging studies: Chest x-ray: Negative for acute disease. Procedures: tPA administration Critical care: I have personally spent 30 minutes of critical care time in the direct management of this patient. This includes bedside care, interpretation of diagnostic studies, and testing, discussion with consultants, patient, and family members, and other required patient management activities. This 30 minutes is in excess of all separately billable procedures. HPI: See MDM above. PAST MEDICAL HISTORY: See Below PAST SURGICAL HISTORY: See Below SOCIAL HISTORY: See Below HOME MEDICATIONS: See Below ALLERGIES: See Below VITALS: See Below PHYSICAL EXAMINATION: CONSTITUTIONAL/VITAL SIGNS: Reviewed GENERAL: Non-toxic in appearance. INTEGUMENTARY: Warm, dry, and [place]. HEAD: Normocephalic. EYES: without scleral icterus. ENT/OROPHARYNX: clear and moist. RESPIRATORY: No increased work of breathing. Lungs clear. CARDIOVASCULAR: Regular rate. Regular rhythm. GI/ABDOMEN: Soft and nontender. . 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 PSYCHIATRIC: Normal affect. MUSCULOSKELETAL: Normal. TRIAGE NURSING DOCUMENTATION REVIEWED. Past Med/Surg History Medical History Colon cancer 2015--sx Diabetes mellitus, type 2 Glaucoma Hearing deficit History of colon cancer HTN (hypertension) Hyperlipidemia Hypokalemia PT NOT SURE CURRENT LEVEL Osteoarthritis Tubular adenoma of colon HX Zenker's diverticulum Surgical History History of colonoscopy History of esophagogastroduodenoscopy (EGD) History of eye surgery left eye History of left cataract extraction (~08/2021) History of right cataract extraction History of tooth extraction Status post laparoscopic colectomy 2015 transverse colon mass Family History Mother Cancer Father Cancer Other Coronary heart disease No family history of adverse response to anesthesia Denies family history of Ovarian cancer Prostate cancer Myocardial infarction Breast cancer Colorectal cancer Social History Smoking Status: Former smoker Tobacco Type: Cigarettes Age Started Using Tobacco: 14; Age Quit Using Tobacco: 24; packs per day: 1; Second Hand Exposure: No; Hx Alcohol Use: Yes Alcohol type: beer Alcohol Intake Frequency: 4 or More x per/Week Alcohol Intake Frequency Comment: a couple cans of beer per day Hx Substance Use: No Preferred Language: Azeri Communication Ability: Effective Visual Impairment: No Limitations Hearing Ability: Use of Hearing Aid Budget Controller Required: No Beliefs That Will Affect Care: None marital status: Current Living Situation: Spouse current occupational status: retired 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 Feels Safe at Home: Yes Childhood Exposure to Second-Hand Smoke: Yes Dental Care, Regularly: Yes Physical Activity Frequency: Does not Exercise Seatbelt Use: always Sunscreen Use: Yes Assistive Devices: Glasses and Hearing Aid - Bilateral Allergies Allergies Allergy/AdvReac Type Severity Reaction Status Date / Time No Known Allergies Allergy NONE Verified 11/11/22 11:49 Home Meds Home Medications Medication Instructions Recorded Confirmed aspirin 81 mg tablet,delayed 81 mg PO QAM 03/04/19 11/11/22 release dbtiishp-ncggjbsw-gffjl acid 400 1 tab PO QAM 03/04/19 04/02/22 mcg-vit K 20 mcg-lycop 300 mcg tablet (One-A-Day Men's Multivitamin) pantoprazole 40 mg tablet,delayed 40 mg PO QAM 02/26/22 11/11/22 release Previous Rx's Medication Instructions Recorded atorvastatin 40 mg tablet 40 mg PO HS #90 tabs 12/14/21 metformin 500 mg tablet 500 mg PO QAM #90 tabs 04/16/22 potassium chloride 20 mEq 20 meq PO QAM #90 tabs 08/09/22 tablet,extended release lisinopril 20 1 tab PO QAM #90 tabs 08/27/22 mg-hydrochlorothiazide 25 mg tablet amlodipine 5 mg tablet 5 mg PO DAILY #90 tabs 11/11/22 Results & Data (ED) Vital Signs Vital Signs - 24 hr 11/16/22 07:25 11/16/22 08:33 11/16/22 09:09 Temperature 36.5 C Temperature Source Oral Pulse Rate 81 Pulse Rate [Apical] 78 67 Pulse Rhythm [Apical] Regular Respiratory Rate 17 17 17 Respiratory Effort / Characteristics Non-Labored Spontaneous Non-Labored Spontaneous Non-Labored Spontaneous Respiratory Depth Normal Normal Normal Respiratory Pattern Regular Regular Regular Blood Pressure 180/108 H Blood Pressure [Left Arm] 199/103 H 165/90 H Blood Pressure Mean 132 Blood Pressure Mean [Left Arm] 135 115 Blood Pressure Position Semi-fowlers Blood Pressure Position [Left Arm] Sitting Pulse Oximetry 97 96 97 Oxygen Delivery Method Room Air Room Air Room Air Sepsis Recent Fever Within 48 Hours No Sepsis New/Unexplained Change in Mental Status No Sepsis Action Taken by Nursing No Action Required Laboratory Data 11/16/22 08:01 11/16/22 08:01 Lab Results 11/16/22 11/16/22 11/16/22 Range/Units 07:58 08:01 08:01 WBC 3.86 L (4.8-10.8) K/ul RBC 3.90 L (4.70-6.10) M/uL Hgb 12.5 L (14.0-18.0) g/dl Hct 34.6 L (42.0-52.0) % MCV 88.7 (80.0-100.0) fL MCH 32.1 (25.0-34.0) pg MCHC 36.1 H (32.0-36.0) g/dL RDW Std Deviation 36.6 (36.4-46.3) fL RDW Coeff of Bonnie 11.5 (11.5-14.5) % Plt Count 214 (130-400) K/uL MPV 9.3 L (9.4-12.4) fL Immature Gran % (Auto) 0.5 % Neut % (Auto) 57.5 % Lymph % (Auto) 32.4 % [place] % (Auto) 8.0 % Eos % (Auto) 0.8 % Baso % (Auto) 0.8 % Neut # (Auto) 2.22 (1.40-6.50) K/uL Lymph # (Auto) 1.25 (1.2-3.4) K/uL [place] # (Auto) 0.31 (0.11-0.59) K/uL Eos # (Auto) 0.03 (0-0.50) K/uL Baso # (Auto) 0.03 (0-0.2) K/uL Immature Gran # (Auto) 0.02 (0.01-0.20) K/uL PT (9.0-12.0) Seconds INR (0.9-1.1) APTT (21.0-31.0) Seconds PTT Ratio Sodium (136-145) mmol/L Potassium (3.5-5.1) mmol/L Chloride (98-107) mmol/L Carbon Dioxide (21-32) mmol/L Anion Gap (3-11) BUN (6-23) mg/dl Creatinine (0.6-1.4) mg/dl Est Cr Clr Drug Dosing Est GFR ( Amer) ml/min Est GFR (Non-Af Amer) ml/min BUN/Creatinine Ratio (10-20) Glucose (70-99(Fasting)) mg/dl POC Glucose 115 H (70-99) mg/dl Calcium (8.5-10.1) mg/dl Magnesium (1.7-2.4) mg/dl Total Bilirubin (0.2-1.0) mg/dl AST (13-39) U/L ALT (7-52) U/L Alkaline Phosphatase (34-104) U/L Troponin I High Sens (0-20) pg/ml Total Protein (6.0-8.3) gm/dl Albumin (3.4-5.0) gm/dl Globulin (2.5-4.0) gm/dl Albumin/Globulin Ratio (0.9-2) Blood Type O Positive Antibody Screen NEGATIVE 11/16/22 11/16/22 Range/Units 08:01 08:01 WBC (4.8-10.8) K/ul RBC (4.70-6.10) M/uL Hgb (14.0-18.0) g/dl Hct (42.0-52.0) % MCV (80.0-100.0) fL MCH (25.0-34.0) pg MCHC (32.0-36.0) g/dL RDW Std Deviation (36.4-46.3) fL RDW Coeff of Bonnie (11.5-14.5) % Plt Count (130-400) K/uL MPV (9.4-12.4) fL Immature Gran % (Auto) % Neut % (Auto) % Lymph % (Auto) % [place] % (Auto) % Eos % (Auto) % Baso % (Auto) % Neut # (Auto) (1.40-6.50) K/uL Lymph # (Auto) (1.2-3.4) K/uL [place] # (Auto) (0.11-0.59) K/uL Eos # (Auto) (0-0.50) K/uL Baso # (Auto) (0-0.2) K/uL Immature Gran # (Auto) (0.01-0.20) K/uL PT 11.9 (9.0-12.0) Seconds INR 1.1 (0.9-1.1) APTT 27.8 (21.0-31.0) Seconds PTT Ratio 1.0 Sodium 135 L (136-145) mmol/L Potassium 3.5 (3.5-5.1) mmol/L Chloride 98 (98-107) mmol/L Carbon Dioxide 31 (21-32) mmol/L Anion Gap 6 (3-11) BUN 8 (6-23) mg/dl Creatinine 0.92 (0.6-1.4) mg/dl Est Cr Clr Drug Dosing Not Reportable Est GFR ( Amer) 90.1 ml/min Est GFR (Non-Af Amer) 77.7 ml/min BUN/Creatinine Ratio 8.7 L (10-20) Glucose 119 H (70-99(Fasting)) mg/dl POC Glucose (70-99) mg/dl Calcium 8.9 (8.5-10.1) mg/dl Magnesium 1.7 (1.7-2.4) mg/dl Total Bilirubin 0.6 (0.2-1.0) mg/dl AST 20 (13-39) U/L ALT 13 (7-52) U/L Alkaline Phosphatase 90 (34-104) U/L Troponin I High Sens 5.1 (0-20) pg/ml Total Protein 6.1 (6.0-8.3) gm/dl Albumin 3.7 (3.4-5.0) gm/dl Globulin 2.4 L (2.5-4.0) gm/dl Albumin/Globulin Ratio 1.5 (0.9-2) Blood Type Antibody Screen Administered Medications Sodium Chloride (Nss 1000ml) 1,000 mls @ 100 mls/hr IV .Q10H [facility] Stop: 12/16/22 08:59 Last Admin: 11/16/22 09:20 Dose: 100 mls/hr Documented By: NA Discontinued Medications Tenecteplase 18 mg/ Syringe 3.6 mls @ 43.2 mls/min IV NOW ONE; Protocol Stop: 11/16/22 09:10 Last Admin: 11/16/22 09:09 Dose: 43.2 mls/min Documented By: LIDA Co-signed By: TERESE Ioversol (Optiray 320 500ml) 120 ml IV ONCE ONE Stop: 11/16/22 07:55 Last Admin: 11/16/22 07:55 Dose: 120 ml Documented By: KYLE Labetalol HCl (Labetalol Hcl Iv 5 Mg/Ml 20ml) 10 mg IV Q10M PRN PRN Reason: SBP > 185 or DBP > 110mmHg Stop: 11/16/22 10:00 Last Admin: 11/16/22 09:27 Dose: 10 mg Documented By: LIDA Co-signed By: KELIN Admin: 11/16/22 09:06 Dose: 10 mg Documented By: LIDA Co-signed By: TERESE Sodium Chloride (Sodium Chloride 0.9% 10ml Flush) 20 ml IV NOW STA Stop: 11/16/22 09:00 Last Admin: 11/16/22 09:12 Dose: 20 ml Documented By: LIDA Imaging Data Radiologist's Impression: Chest X-Ray 11/16/22 07:32 XR chest 1V portable HISTORY: 82 years-old Male neuro deficit, acute stroke suspected acute strokelike symptoms COMPARISON: Chest CT 08/22/2015 TECHNIQUE: AP view of the chest FINDINGS: Cardiac mediastinal and hilar silhouettes are within normal limits. No pneumothorax, pleural effusion, airspace consolidation or overt pulmonary edema. Degenerative changes of the shoulders and spine. IMPRESSION: No acute process. ACT 112: Negative or not required by law. The above report was generated using voice recognition software. It may contain grammatical, syntax or spelling errors. Electronically signed by: Mason Muhammad M.D. 11/16/2022 8:[address] 11/16/22 07:32 CT angio head w con, CT angio neck with con, CT head/brain wo con CLINICAL HISTORY: 82 years-old Male with neuro deficit, acute stroke suspected. Acute strokelike symptoms COMPARISON STUDY: None TECHNIQUE: Unenhanced axial CT scan of the brain is performed. Subsequently, following the IV administration of 120 cc of Optiray, CT angiogram of the head and neck was performed from the aortic arch to the skull apex. Images are reviewed in the axial, sagittal, and coronal planes. 3-D MIPS images are created and assessed. IV contrast was administered without complication. All measuremen ts were obtained according to NASCET criteria. A dose lowering technique was utilized adhering to the principles of ALARA. CT DOSE: 1152.37 mGy.cm FINDINGS: CT BRAIN: There is no acute intracranial hemorrhage, hydrocephalus, intracranial mass, or acute territorial infarct. There is asymmetric prominence of the extra-axial space lateral to left frontal hemisphere with CSF attenuation measuring up to 4 mm on image 18 series 2. Rightward midline shift of 4 mm may be a chronic finding. Involutional changes with chronic microvascular ischemic disease. There is an ill-defined 1.4 x 1.1 cm area of decreased attenuation within the left internal capsule/lentiform nucleus distribution on image 12 series 2. There is no abnormal intra-axial or extra-axial enhancement. Trace right mastoid effusion. Left mastoid air cells are clear. Prior bilateral lens repair. No calvarial fracture. Paranasal sinuses are clear. CT ANGIOGRAM OF THE HEAD AND NECK: Three-vessel morphology of the thoracic aortic arch. Patency of the innominate a nd imaged subclavian arteries. Common carotid arteries are patent. Moderate atherosclerotic plaque of the left carotid bulb and proximal left ICA with less than 50% stenosis. Moderate to extensive atherosclerotic plaque of the left carotid bulb and proximal left ICA results in 60% stenosis. The bilateral anterior and middle cerebral arteries are also patent. The vertebrobasilar system and posterior cerebral arteries are widely patent. There is no aneurysm, high-grade stenosis, or proximal branch occlusion identified. Dural sinuses appear patent. Lung apices are generally clear. Unremarkable soft tissues. Degenerative changes of the cervical spine. IMPRESSION: 1. No acute intracranial hemorrhage or acute territorial infarct identified. 2. There is an ill-defined 1.4 cm focus of decreased attenuation within the left internal capsule/lentiform nucleus suggestive of an age-indeterminate lacunar infarct. 3. 60% stenosis of the proximal cervical segment left ICA secondary to atherosclerosis. 4. Otherwise unremarkable CTA of the head and neck. 5. 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 ACT 112: Negative or not required by law. The above report was generated using voice recognition software. It may contain grammatical, syntax or spelling errors. Electronically signed by: Mason Muhammad M.D. 11/16/2022 8:29 AM Head CTA 11/16/22 07:32 CT angio head w con, CT angio neck with con, CT head/brain wo con CLINICAL HISTORY: 82 years-old Male with neuro deficit, acute stroke suspected. Acute strokelike symptoms COMPARISON STUDY: None TECHNIQUE: Unenhanced axial CT scan of the brain is performed. Subsequently, following the IV administration of 120 cc of Optiray, CT angiogram of the head and neck was performed from the aortic arch to the skull apex. Images are reviewed in the axial, sagittal, and coronal planes. 3-D MIPS images are created and assessed. IV contrast was administered without complication. All measurements were obtained according to NASCET criteria. A dose lowering technique was utilized adhering to the principles of ALARA. CT DOSE: 1152.37 mGy.cm FINDINGS: CT BRAIN: There is no acute intracranial hemorrhage, hydrocephalus, intracranial mass, or acute territorial infarct. There is asymmetric prominence of the extra-axial space lateral to left frontal hemisphere with CSF attenuation measuring up to 4 mm on image 18 series 2. Rightward midline shift of 4 mm may be a chronic finding. Involutional changes with chronic microvascular ischemic disease. There is an ill-defined 1.4 x 1.1 cm area of decreased attenuation within the left internal capsule/lentiform nucleus distribution on image 12 series 2. There is no abnormal intra-axial or extra-axial enhancement. Trace right mastoid effusion. Left mastoid air cells are clear. Prior bilateral lens repair. No calvarial fracture. Paranasal sinuses are clear. CT ANGIOGRAM OF THE HEAD AND NECK: Three-vessel morphology of the thoracic aortic arch. Patency of the innominate and imaged subclavian arteries. Common carotid arteries are patent. Moderate atherosclerotic plaque of the left carotid bulb and proximal left ICA with less than 50% stenosis. Moderate to extensive atherosclerotic plaque of the left carotid bulb and proximal left ICA results in 60% stenosis. The bilateral anterior and middle cerebral arteries are also patent. The vertebrobasilar s ystem and posterior cerebral arteries are widely patent. There is no aneurysm, high-grade stenosis, or proximal branch occlusion identified. Dural sinuses appear patent. Lung apices are generally clear. Unremarkable soft tissues. Degenerative changes of the cervical spine. IMPRESSION: 1. No acute intracranial hemorrhage or acute territorial infarct identified. 2. There is an ill-defined 1.4 cm focus of decreased attenuation within the left internal capsule/lentiform nucleus suggestive of an age-indeterminate lacunar infarct. 3. 60% stenosis of the proximal cervical segment left ICA secondary to atherosclerosis. 4. Otherwise unremarkable CTA of the head and neck. 5. 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 ACT 112: Negative or not required by law. The above report was generated using voice recognition software. It may contain grammatical, syntax or spelling errors. Electronically signed by: Mason Muhammad M.D. 11/16/2022 8:29 AM Neck CTA 11/16/22 07:32 CT angio head w con, CT angio neck with con, CT head/brain wo con CLINICAL HISTORY: 82 years-old Male with neuro deficit, acute stroke suspected. Acute strokelike symptoms COMPARISON STUDY: None TECHNIQUE: Unenhanced axial CT scan of the brain is performed. Subsequently, following the IV administration of 120 cc of Optiray, CT angiogram of the head and neck was performed from the aortic arch to the skull apex. Images are reviewed in the axial, sagittal, and coronal planes. 3-D MIPS images are created and assessed. IV contrast was administered without complication. All measurements were obtained according to NASCET criteria. A dose lowering t echnique was utilized adhering to the principles of ALARA. CT DOSE: 1152.37 mGy.cm FINDINGS: CT BRAIN: There is no acute intracranial hemorrhage, hydrocephalus, intracranial mass, or acute territorial infarct. There is asymmetric prominence of the extra-axial space lateral to left frontal hemisphere with CSF attenuation measuring up to 4 mm on image 18 series 2. Rightward midline shift of 4 mm may be a chronic finding. Involutional changes with chronic microvascular ischemic disease. There is an ill-defined 1.4 x 1.1 cm area of decreased attenuation within the left internal capsule/lentiform nucleus distribution on image 12 series 2. There is no abnormal intra-axial or extra-axial enhancement. Trace right mastoid effusion. Left mastoid air cells are clear. Prior bilateral lens repair. No calvarial fracture. Paranasal sinuses are clear. CT ANGIOGRAM OF THE HEAD AND NECK: Three-vessel morphology of the thoracic aortic arch. Patency of the innominate and imaged subclavian arteries. Common carotid arteries are patent. Moderate atherosclerotic plaque of the left carotid bulb and proximal left ICA with less than 50% stenosis. Moderate to extensive atherosclerotic plaque of the left carotid bulb and proximal left ICA results in 60% stenosis. The bilateral anterior and middle cerebral arteries are also patent. The vertebrobasilar system and posterior cerebral arteries are widely patent. There is no aneurysm, high-grade stenosis, or proximal branch occlusion identified. Dural sinuses appear patent. Lung apices are generally clear. Unremarkable soft tissues. Degenerative changes of the cervical spine. IMPRESSION: 1. No acute intracranial hemorrhage or acute territorial infarct identified. 2. There is an ill-defined 1.4 cm focus of decreased attenuation within the left internal capsule/lentiform nucleus suggestive of an age-indeterminate lacunar infarct. 3. 60% stenosis of the proximal cervical segment left ICA secondary to atherosclerosis. 4. Otherwise unremarkable CTA of the head and neck. 5. 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 ACT 112: Negative or not required by law. The above report was generated using voice recognition software. It may contain grammatical, syntax or spelling errors. Electronically signed by: Mason Muhammad M.D. 11/16/2022 8:29 AM Discharge Plan Visit Data Chief Complaint: Stroke Alert Stated Complaint: STROKE SX ED Provider: Candelario Kelley Discharge Problem: Acute CVA (cerebrovascular accident) Patient Disposition: Being Evaluated by Hospitalist Forms Stand Alone Forms: [facility] [place] [facility] Prescriptions Prescriptions: No Action atorvastatin 40 mg tablet 40 mg PO HS Qty: 90 3RF metformin 500 mg tablet 500 mg PO QAM Qty: 90 3RF potassium chloride 20 mEq tablet extended release 20 meq PO QAM Qty: 90 3RF lisinopril-hydrochlorothiazide 20-25 mg tablet 1 tab PO QAM Qty: 90 3RF amlodipine 5 mg tablet 5 mg PO DAILY Qty: 90 3RF Rx Instructions: for blood pressure aspirin 81 mg Tablet,Delayed Release (Dr/Ec) 81 mg PO QAM One-A-Day Men's Multivitamin 400-20-300 mcg Tablet 1 tab PO QAM pantoprazole 40 mg tablet,delayed release (DR/EC) 40 mg PO QAM Rx Instructions: Take 1 tablet by mouth once daily Referrals Referrals: Bernarda Llanes CRNP [Primary Care Provider] -
--- NOTE | 2022-11-16 09:55 | History & Physical Report ---
Date of Service November 16, 2022 Assessment & Plan (1) Acute CVA (cerebrovascular accident): Plan: Malvin Higgins is an 82-year-old with PMH of DM2, HTN, HLD, h/o colon cancer who presented due to right-sided weakness. Was found to have CVA, now s/p TNKase. CVA -CT Head/CTA Head & Neck: No acute intracranial hemorrhage or acute territorial infarct identified. There is an ill-defined 1.4 cm focus of decreased attenuation within the left internal capsule/lentiform nucleus suggestive of an age-indeterminate lacunar infarct. 60% stenosis of the proximal cervical segment left ICA secondary to atherosclerosis. -s/p TNKase on 11/16 09:09 -Admit to ICU for post-TNKase monitoring -Brain MRI ordered -Lipids, A1c for AM -Echocardiogram ordered -Neuro consulted -Hold home antihypertensives, statin, metformin for now -Neuro checks Q15 for 2 hours, Q30 for 6 hours, Q1 until 24 hours after TNK -NPO until cleared by dysphagia screening -- will hold home oral meds -PT/OT consults HTN -Hold home oral meds at this time -Permissive HTN per ICU HLD -Hold atorvastatin 40mg daily while pending dysphagia screen -Repeat lipids in AM -Last lipid profile 11/11/22 with 188 total cholesterol, LDL 84, HDL 66, TG 192 DM2 - Hold metformin - ICU hyperglycemia protocol - A1c in AM GERD - Hold oral pantoprazole for now DVT ppx: chemoppx contraindicated in the setting of TNKase Diet: NPO until dysphagia screen cleared, NSS 100cc/h Dispo: Admit to ICU, PT/OT evals CODE STATUS: Full (2) Hyperlipidemia: (3) HTN (hypertension): (4) Diabetes mellitus, type 2: (5) History of colon cancer: (6) Arthritis: (7) Allergic rhinitis: History of Present Illness Primary Care Provider: PATEL Still Malvin Higgins is an 82-year-old with PMH of DM2, HTN, HLD, h/o colon cancer who presented due to right-sided weakness. Around 6:15AM this morning patient woke up and went to the bathroom. Once there he felt weak and was unable to return to bed. He had weakness of the right lower extremity as well as some reported tingling in his right hand. called EMS and he was brought in under stroke alert prior to arrival. Per telestroke neurologist, patient received TNKase in the Emergency Room. Was also given labetalol for BP control. Upon my evaluation patient was alert and conversing appropriately. He reported feeling better and already noticing some improvement in his extremities. Per RN in room, patient had drift in RUE and no field marketing representative strength prior to TNKase, both of which had resolved by the time of my evaluation. He denies RING, dizziness, vision changes, speech difficulty, CP, palp, n/v, abd pain, SOB, f/c, stool changes. CT Head/CTA Head & Neck: No acute intracranial hemorrhage or acute territorial infarct identified. There is an ill-defined 1.4 cm focus of decreased attenuation within the left internal capsule/lentiform nucleus suggestive of an age-indeterminate lacunar infarct. 60% stenosis of the proximal cervical segment left ICA secondary to atherosclerosis. Allergies Allergy/AdvReac Type Severity Reaction Status Date / Time No Known Allergies Allergy NONE Verified 11/11/22 11:49 Home Medications Medication Instructions Recorded Confirmed Type aspirin 81 mg tablet,delayed 81 mg PO QAM 03/04/19 11/11/22 History release sqvgwhug-byskrmms-badpw acid 400 1 tab PO QAM 03/04/19 04/02/22 History mcg-vit K 20 mcg-lycop 300 mcg tablet (One-A-Day Men's Multivitamin) atorvastatin 40 mg tablet 40 mg PO HS #90 tabs 12/14/21 11/11/22 Rx pantoprazole 40 mg tablet,delayed 40 mg PO QAM 02/26/22 11/11/22 History release metformin 500 mg tablet 500 mg PO QAM #90 tabs 04/16/22 11/11/22 Rx potassium chloride 20 mEq 20 meq PO QAM #90 tabs 08/09/22 11/11/22 Rx tablet,extended release lisinopril 20 1 tab PO QAM #90 tabs 08/27/22 11/11/22 Rx mg-hydrochlorothiazide 25 mg tablet amlodipine 5 mg tablet 5 mg PO DAILY #90 tabs 11/11/22 11/11/22 Rx Past Med/Surg History Medical History Colon cancer 2015--sx Diabetes mellitus, type 2 Glaucoma Hearing deficit History of colon cancer HTN (hypertension) Hyperlipidemia Hypokalemia PT NOT SURE CURRENT LEVEL Osteoarthritis Tubular adenoma of colon HX Zenker's diverticulum Surgical History History of colonoscopy History of esophagogastroduodenoscopy (EGD) History of eye surgery left eye History of left cataract extraction (~08/2021) History of right cataract extraction History of tooth extraction Status post laparoscopic colectomy 2015 transverse colon mass Family History Mother Cancer Father Cancer Other Coronary heart disease No family history of adverse response to anesthesia Denies family history of Ovarian cancer Prostate cancer Myocardial infarction Breast cancer Colorectal cancer Social History Smoking Status: Former smoker Tobacco Type: Cigarettes Age Started Using Tobacco: 14; Age Quit Using Tobacco: 24; packs per day: 1; Second Hand Exposure: No; Hx Alcohol Use: Yes Alcohol type: beer Alcohol Intake Frequency: 4 or More x per/Week Alcohol Intake Frequency Comment: a couple cans of beer per day Hx Substance Use: No Preferred Language: Frisian Communication Ability: Effective Visual Impairment: No Limitations Hearing Ability: Use of Hearing Aid Store Protection Specialist Required: No Beliefs That Will Affect Care: None marital status: Current Living Situation: Spouse current occupational status: retired 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 NAD. HEENT: PERRL, EOMI. Moist mucous membranes. NECK: No JVD. No lymphadenopathy. CHEST/LUNGS: CTAB A/P. No crackles, wheezes, rales, rhonchi. HEART: RRR. No m/g/r. No carotid bruits. ABDOMEN: NT/ND, soft. BS+ x4 EXTREMITIES: No cyanosis, no clubbing, no edema SKIN: Warm and dry. No rashes or lesions. PSYCHIATRIC: Euthymic affect, no SI, no pressured speech, no hallucinations NEUROLOGIC: Decreased field marketing representative strength on right side. Able to move both lower extremities equally. CN II-XII intact. Results & Data Results & Data ([facility]) Vital Signs (Past 12 Hours) Vital Signs Temp Pulse Pulse Resp BP BP Pulse Ox 11/16/22 09:39 36.6 C 66 18 182/120 H 96 11/16/22 09:24 36.6 C 68 17 187/107 H 97 11/16/22 09:09 67 17 165/90 H 97 11/16/22 08:33 78 17 199/103 H 96 11/16/22 07:25 36.5 C 81 17 180/108 H 97 O2 Del Method 11/16/22 09:39 Room Air 11/16/22 09:24 Room Air 11/16/22 09:09 Room Air 11/16/22 08:33 Room Air 11/16/22 07:25 Room Air Supervising Physician Co-Signing Physician Notes I personally examined the patient and verified all hirsch points of history and exam, discussed case, and agree with decision making with Dr Somers. Moving arm and leg better. Vitals noted, in general he is awake and alert pleasant no distress. Breathing unlabored no accessory muscle use good effort. Skin shows no rashes no pallor or icterus. Arm and leg strength seems to be 5 out of 5 and equal Stroke status post TN Kvigilance, serial exams, supportive care. Secondary risk reduction. Eventual vascular surgery evaluation for carotid on ipsilateral side of stroke. Otherwise continue current care Resident Activity Tracking Resident Involvement: Resident Care Provided Care Provided: Adult Hospital Medicine
--- NOTE | 2022-11-16 10:24 | Critical Care Consultation ---
Date of Consultation November 16, 2022 Assessment & Plan (1) Acute CVA (cerebrovascular accident): Plan Reason Critically Ill:Patient admitted to ICU - CVA now s/p TNK at 09:10 11/16/22. NEURO - CVA s/p TNK CAM ICU: Negative Neuro checks Q15 for 2 hours, Q30 for 6 hours, Q1 until 24 hours after TNK Of note patient has difficulty reading at baseline CARDIAC SBP: 160-199 DBP: 90-120. Allow permissive hypertension in the setting of recent CVA HTN - on lisinopril/HCTZ and amlodipine at home, hold home meds HLD - on atorvastatin at home Respiratory -stable Satting well on RA GI Passed swallow RENAL/LYTES -replete per protocol - no acute needs ENDO DM - on metformin 500 mg QAM. Last HbA1c 5.8 ICU hyperglycemic protocol HEME s/p TNK on ASA at home. Hold for 24 hours after thrombolytics No blood draws for 24 hours ID Leukopenic 3.86, etiology unclear has been leukopenic in the past - monitor with CBC LINES/IV ACCESS - peripheral IV access FEN/GI - Heart Healthy/Carb Consistent Diet, IVF 100 mL/hr NS DVT PROPHYLAXIS - SCDS, s/p TNK DISPO:ICU (2) Hyperlipidemia: (3) HTN (hypertension): (4) Diabetes mellitus, type 2: (5) History of colon cancer: (6) Arthritis: (7) Allergic rhinitis: Supervising Physician Co-Signing Physician Notes Dr. Castellon was resident physician during care of patient. I separately evaluated patient for hirsch portions of the history and the exam. I was present during the critical portion of medical decision making, and I discussed the case with the resident. I generally agree with the findings and plan. 82-year-old male with concern for age-indeterminate CVA. Was given TNKase in emergency department. Presents to the ICU for further evaluation and management. Currently has significantly improved right-sided weakness compared to presentation. Cleared by speech therapy for diet. In my review of imaging radiology notes a 4 mm left-sided hygroma versus chronic subdural. I discussed with Dr. Eddie pruitt, he was unaware of any discussion from Dr. Abdul regarding this finding. I am attempting to obtain the neurology stroke consultation H&P. I have personally spent 40 minutes of critical care time in the direct management of this patient. This is a life/limb threatening event. This includes time spent evaluating patient, direct bedside care, chart review, placing orders, interpretation of diagnostic studies, discussion with consultants, patient, and/or family members regarding treatment decisions, as well as other required patient management activities. This time is exclusive of all separately billable procedures, and teaching time and separate from and in addition to any other critical care service time. History of Present Illness Requesting Physician: Dr. Montes Attending Physician: Dr. Álvarez History of Present Illness 82 y/o male presented to the ED with a chief complaint of left sided weakness and concern for stroke symptoms. Last known well was 6:15 am. Stroke alert was called prior to the patient's arrival. CT scan of the brain did not show any acute hemorrhage. CT angiogram reveals an age-indeterminate left-sided lacunar infarct and 60% left ICA stenosis. The patient was evaluated by stroke telehealth neurologist, Dr. Dowd - alida REHMAN. Now s/p TNK and requiring ICU level care. Allergies Allergy/AdvReac Type Severity Reaction Status Date / Time No Known Allergies Allergy NONE Verified 11/11/22 11:49 Home Medications Medication Instructions Recorded Confirmed Type aspirin 81 mg tablet,delayed 81 mg PO QAM 03/04/19 11/11/22 History release uerwmeed-vbvyoxxn-vhlke acid 400 1 tab PO QAM 03/04/19 04/02/22 History mcg-vit K 20 mcg-lycop 300 mcg tablet (One-A-Day Men's Multivitamin) atorvastatin 40 mg tablet 40 mg PO HS #90 tabs 12/14/21 11/11/22 Rx pantoprazole 40 mg tablet,delayed 40 mg PO QAM 02/26/22 11/11/22 History release metformin 500 mg tablet 500 mg PO QAM #90 tabs 04/16/22 11/11/22 Rx potassium chloride 20 mEq 20 meq PO QAM #90 tabs 08/09/22 11/11/22 Rx tablet,extended release lisinopril 20 1 tab PO QAM #90 tabs 08/27/22 11/11/22 Rx mg-hydrochlorothiazide 25 mg tablet amlodipine 5 mg tablet 5 mg PO DAILY #90 tabs 11/11/22 11/11/22 Rx Patient History Medical History Colon cancer 2015--sx Diabetes mellitus, type 2 Glaucoma Hearing deficit History of colon cancer HTN (hypertension) Hyperlipidemia Hypokalemia PT NOT SURE CURRENT LEVEL Osteoarthritis Tubular adenoma of colon HX Zenker's diverticulum Surgical History History of colonoscopy History of esophagogastroduodenoscopy (EGD) History of eye surgery left eye History of left cataract extraction (~08/2021) History of right cataract extraction History of tooth extraction Status post laparoscopic colectomy 2015 transverse colon mass Family History Mother Cancer Father Cancer Other Coronary heart disease No family history of adverse response to anesthesia Denies family history of Ovarian cancer Prostate cancer Myocardial infarction Breast cancer Colorectal cancer Social History Smoking Status: Former smoker Tobacco Type: Cigarettes Age Started Using Tobacco: 14; Age Quit Using Tobacco: 24; packs per day: 1; Smoking End Date: greater than 25 years ago; Second Hand Exposure: No; Hx Alcohol Use: Yes Alcohol type: beer Alcohol Intake Frequency: 4 or More x per/Week Alcohol Intake Frequency Comment: a couple cans of beer per day Hx Substance Use: No Preferred Language: Yemeni Communication Ability: Effective Visual Impairment: No Limitations Hearing Ability: Use of Hearing Aid Social And Political Studies Professor Required: No Beliefs That Will Affect Care: None marital status: Current Living Situation: Spouse current occupational status: retired 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 [employer] Other Information That Helps Us Care for You: No Feels Safe at Home: Yes Safety Concerns: Feels Safe At This Time Childhood Exposure to Second-Hand Smoke: Yes Dental Care, Regularly: Yes Physical Activity Frequency: Does not Exercise Seatbelt Use: always Sunscreen Use: Yes Assistive Devices: Hearing Aid - Bilateral Assistive Devices Comment: reports patient does not wear hearing aids Physical Exam Physical Exam: Gen: well appearing male in NAD HEENT: AT NC Resp: CTAB no increased work of breathing CV: RRR no m/r/g clinically well perfused GI: soft, non-distended MSK: no gross deformities Skin: warm, dry, no rashes or bruising Psych: appropriate mood and affect, speaking in full coherent sentences with appropriate thought and content Neuro: Right side pronator drift, diminished head of science strength, decreased speed on finger to nose. Per patient was unable to move his RLE on presentation - improved significantly. Otherwise intact. Results & Data Results & Data ([facility]) Vital Signs (Past 12 Hours) Vital Signs Temp Pulse Pulse Resp BP BP Pulse Ox 11/16/22 10:09 36.6 C 68 18 173/96 H 97 11/16/22 09:54 36.5 C 66 17 174/94 H 95 11/16/22 09:39 36.6 C 66 18 182/120 H 96 11/16/22 09:24 36.6 C 68 17 187/107 H 97 11/16/22 09:09 67 17 165/90 H 97 11/16/22 08:33 78 17 199/103 H 96 11/16/22 07:25 36.5 C 81 17 180/108 H 97 O2 Del Method 11/16/22 10:09 Room Air 11/16/22 09:54 Room Air 11/16/22 09:39 Room Air 11/16/22 09:24 Room Air 11/16/22 09:09 Room Air 11/16/22 08:33 Room Air 11/16/22 07:25 Room Air Laboratory Results 11/16/22 11/16/22 11/16/22 Range/Units 09:40 08:01 08:01 WBC (4.8-10.8) K/ul RBC (4.70-6.10) M/uL Hgb (14.0-18.0) g/dl Hct (42.0-52.0) % MCV (80.0-100.0) fL MCH (25.0-34.0) pg MCHC (32.0-36.0) g/dL RDW Std Deviation (36.4-46.3) fL RDW Coeff of Bonnie (11.5-14.5) % Plt Count (130-400) K/uL MPV (9.4-12.4) fL Immature Gran % (Auto) % Neut % (Auto) % Lymph % (Auto) % [place] % (Auto) % Eos % (Auto) % Baso % (Auto) % Neut # (Auto) (1.40-6.50) K/uL Lymph # (Auto) (1.2-3.4) K/uL [place] # (Auto) (0.11-0.59) K/uL Eos # (Auto) (0-0.50) K/uL Baso # (Auto) (0-0.2) K/uL Immature Gran # (Auto) (0.01-0.20) K/uL PT 11.9 (9.0-12.0) Seconds INR 1.1 (0.9-1.1) APTT 27.8 (21.0-31.0) Seconds PTT Ratio 1.0 Sodium 135 L (136-145) mmol/L Potassium 3.5 (3.5-5.1) mmol/L Chloride 98 (98-107) mmol/L Carbon Dioxide 31 (21-32) mmol/L Anion Gap 6 (3-11) BUN 8 (6-23) mg/dl Creatinine 0.92 (0.6-1.4) mg/dl Est Cr Clr Drug Dosing Not Reportable Est GFR ( Amer) 90.1 ml/min Est GFR (Non-Af Amer) 77.7 ml/min BUN/Creatinine Ratio 8.7 L (10-20) Glucose 119 H (70-99(Fasting)) mg/dl POC Glucose (70-99) mg/dl Calcium 8.9 (8.5-10.1) mg/dl Magnesium 1.7 (1.7-2.4) mg/dl Total Bilirubin 0.6 (0.2-1.0) mg/dl AST 20 (13-39) U/L ALT 13 (7-52) U/L Alkaline Phosphatase 90 (34-104) U/L Troponin I High Sens 5.1 (0-20) pg/ml Total Protein 6.1 (6.0-8.3) gm/dl Albumin 3.7 (3.4-5.0) gm/dl Globulin 2.4 L (2.5-4.0) gm/dl Albumin/Globulin Ratio 1.5 (0.9-2) SARS-CoV-2, RNA, NAAT NEGATIVE (NEGATIVE) Blood Type Antibody Screen 11/16/22 11/16/22 11/16/22 Range/Units 08:01 08:01 07:58 WBC 3.86 L (4.8-10.8) K/ul RBC 3.90 L (4.70-6.10) M/uL Hgb 12.5 L (14.0-18.0) g/dl Hct 34.6 L (42.0-52.0) % MCV 88.7 (80.0-100.0) fL MCH 32.1 (25.0-34.0) pg MCHC 36.1 H (32.0-36.0) g/dL RDW Std Deviation 36.6 (36.4-46.3) fL RDW Coeff of Bonnie 11.5 (11.5-14.5) % Plt Count 214 (130-400) K/uL MPV 9.3 L (9.4-12.4) fL Immature Gran % (Auto) 0.5 % Neut % (Auto) 57.5 % Lymph % (Auto) 32.4 % [place] % (Auto) 8.0 % Eos % (Auto) 0.8 % Baso % (Auto) 0.8 % Neut # (Auto) 2.22 (1.40-6.50) K/uL Lymph # (Auto) 1.25 (1.2-3.4) K/uL [place] # (Auto) 0.31 (0.11-0.59) K/uL Eos # (Auto) 0.03 (0-0.50) K/uL Baso # (Auto) 0.03 (0-0.2) K/uL Immature Gran # (Auto) 0.02 (0.01-0.20) K/uL PT (9.0-12.0) Seconds INR (0.9-1.1) APTT (21.0-31.0) Seconds PTT Ratio Sodium (136-145) mmol/L Potassium (3.5-5.1) mmol/L Chloride (98-107) mmol/L Carbon Dioxide (21-32) mmol/L Anion Gap (3-11) BUN (6-23) mg/dl Creatinine (0.6-1.4) mg/dl Est Cr Clr Drug Dosing Est GFR ( Amer) ml/min Est GFR (Non-Af Amer) ml/min BUN/Creatinine Ratio (10-20) Glucose (70-99(Fasting)) mg/dl POC Glucose 115 H (70-99) mg/dl Calcium (8.5-10.1) mg/dl Magnesium (1.7-2.4) mg/dl Total Bilirubin (0.2-1.0) mg/dl AST (13-39) U/L ALT (7-52) U/L Alkaline Phosphatase (34-104) U/L Troponin I High Sens (0-20) pg/ml Total Protein (6.0-8.3) gm/dl Albumin (3.4-5.0) gm/dl Globulin (2.5-4.0) gm/dl Albumin/Globulin Ratio (0.9-2) SARS-CoV-2, RNA, NAAT (NEGATIVE) Blood Type O Positive Antibody Screen NEGATIVE Resident Activity Tracking Resident Involvement: Resident Care Provided Care Provided: Adult Hospital Medicine
[2022-11-16] MEDS ORDERED: GADOBUTROL 30ML VIAL IV ONE (11:04)
[2022-11-16] MEDS ORDERED: PHARMACIST DISCHARGE MED REC CONSULT PRN (11:32)
[2022-11-16] MEDS: ICU Protocol for HYPERglycemia SCH ×3 (11:55→21:21)
--- NOTE | 2022-11-16 12:06 | Billing Data ---
Date of Service November 16, 2022 Coding Level of Care Code Critical Care 1st - mins
--- NOTE | 2022-11-16 12:29 | Magnetic Resonance Report ---
MR brain wo/w con HISTORY: 82 years-old Male CVA s/p TPA acute strokelike symptoms COMPARISON: Head CT, CTA head and neck of same day TECHNIQUE: Multiplanar multisequence MRI of the brain was obtained both with and without the use of 7 cc Gadavist FINDINGS: There are several small foci of restricted diffusion within the superior left frontal parietal lobes to the vertex measuring up to 1.6 cm which are predominantly cortically based and also within the sub cortical white matter. Probable additional punctate focus within the periventricular left frontal lob e on image 14 series 4. These foci demonstrate decreased signal on ADC map with increased T2/FLAIR si gnal and minimal cortical enhancement of the left parietal lobe on image 92 series 11. Additional sub tle cortical enhancement of the left frontal lobe (please see bookmarks). No acute or subacute territ orial infarct. Midline structures are unremarkable. Degenerative changes of the cervical spine. No acute intracrania l hemorrhage, midline shift, hydrocephalus or intracranial mass. Asymmetry within the extra-axial spa ce adjacent to the left cerebral hemisphere redemonstrated measuring up to approximately 8 mm followi ng CSF signal on all sequences suggestive of a subdural hygroma. No acute extra-axial hemorrhage. Inv olutional changes with moderate chronic microvascular ischemic disease. Probable chronic basal gangli a lacunar infarcts. Cerebral venous sinuses and major arterial flow voids appear patent. Prior bilateral lens repair. The skull and soft tissues are unremarkable. Trace mastoid effusions. Minimal mucosal thickening of the paranasal sinuses. IMPRESSION: 1. Small acute to subacute infarcts of the superior left frontal parietal lobes measure up to approxi mately 1.5 cm 2. Involutional changes with chronic microvascular ischemic disease. 3. Subtle cortical based enhancement of the left frontal and parietal lobes may be related to the afo rementioned infarcts. As a precautionary measure, a 2 month follow-up brain MRI recommended. ACT 112: Negative or not required by law. The above report was generated using voice recognition software. It may contain grammatical, syntax o r spelling errors. Electronically signed by: Mason Muhammad M.D. 11/16/2022 12:27 PM
[2022-11-16] MEDS ORDERED: ATORVASTATIN 40 MG TAB PO SCH (13:15)
[2022-11-16] MEDS ORDERED: metFORMIN HCL 500 MG TAB PO SCH (13:15)
--- NOTE | 2022-11-16 13:18 | Electrocardiogram Report ---
Test Reason : Blood Pressure : / mmHG Vent. Rate : 082 BPM Atrial Rate : 082 BPM P-R Int : 182 ms QRS Dur : 088 ms QT Int : 404 ms P-R-T Axes : 033 030 026 degrees QTc Int : 472 ms Normal sinus rhythm Normal ECG When compared with ECG of 25-AUG-2015 11:54, QT has lengthened Confirmed by Shailesh Saab ([id number]) on 11/16/2022 1:17:37 PM Referred By: REFERRED SELF Confirmed By:Shailesh Saab
[2022-11-16] MEDS ORDERED: DEXTROSE 50% 50 ML SYRINGE IV PRN (13:30)
[2022-11-16] MEDS ORDERED: GLUCOSE 10 TAB/TUBE PO PRN (13:30)
[2022-11-16] MEDS ORDERED: GLUCOSE 40% GEL 15 GM TUBE PO PRN (13:30)
[2022-11-16] MEDS ORDERED: CARBOHYDRATES FOR HYPOGLYCEMIA PO PRN (13:30)
[2022-11-16] MEDS ORDERED: GLUCAGON FOR INJ 1 MG VIAL IM PRN (13:30)
[2022-11-16] MEDS: INSULIN ASPART PER UNIT SC SCH ×3 (14:31→21:21)
[2022-11-16] MEDS: PANTOprazole 40 MG TAB PO SCH (14:31)
[2022-11-16] MEDS ORDERED: LABETALOL HCL IV 5 MG/ML 20ML IV STA (15:41)
--- NOTE | 2022-11-16 16:09 | Billing Data ---
Date of Service November 16, 2022 Coding Level of Care Code 42410 INT INP/OBS CARE
--- NOTE | 2022-11-16 19:37 | Neurology Consultation ---
Date of Consultation November 16, 2022 Assessment & Plan (1) Acute CVA (cerebrovascular accident): Impression: The patient had sudden onset right lower extremity weakness, and was brought to emergency department this morning, and he received TNKase. Since then, his neurological deficit has been resolved almost completely. Brain MRI did not show any hemorrhagic conversion but left frontal, parietal, and subcortical multiple small ischemic strokes. Most of lesions were in MCA territory but also there was a acute ischemic lesion in JOSE territory. The most likely mechanism of stroke is atheroembolism. The patient has significant atheromatous plaques and internal carotid arteries with moderate stenosis of left internal carotid artery. Telemetry monitoring has been showing sinus rhythm. His blood pressure has been running very high, and he has been needing labetalol infusions for blood pressure over 180. Plan/recommendations: We will hold antiplatelet and anticoagulation treatment for 24 hours following TNKase treatment. Repeat head CT tomorrow around 9 AM. If there is no hemorrhagic conversion, then the patient should be started on aspirin 81 mg with Plavix 75 mg daily without bolus. We like to keep patient on double antiplatelet treatment for 3 weeks, then 1 no antiplatelet agent can be stopped. Based on presumptive mechanism of atheroembolism, we will increase Lipitor dosage to 80 mg at bedtime. Echocardiogram. We should keep systolic blood pressure below 180 in first 24 hours following TNKase treatment. IV labetalol as needed. After 24 hours, we should gradually lower blood pressure in next couple days, with goal blood pressure of below 130/80. There is no indication for intervention of moderate left internal carotid artery stenosis. The patient should get follow-up carotid ultrasound studies. We should keep blood sugar within normal range. We will follow protocol, status post thrombolytic treatment in ICU. If the patient stays stable, then he can be transferred to telemetry bed after follow- up head CT tomorrow. Physical therapy and Occupational Therapy evaluations. Follow-up with neurology clinic. I will contact with [facility] neurology to set up a follow-up appointment in clinic. Thank you for the consultation. (2) Hyperlipidemia: Impression: The patient has been on Lipitor 40 mg daily, for long history of hyperlipidemia. He reports that he has been compliant. Plan/recommendations: As seen above. (3) History of colon cancer: Impression: The patient was diagnosed with colon cancer in 2014 and he has been in remission. (4) Diabetes mellitus, type 2: Impression: The patient reports compliance with treatment. He has no obvious symptoms to suggest diabetic peripheral polyneuropathy. (5) HTN (hypertension): Impression: The patient has long history of hypertension on treatment. On admission, blood pressure was significantly elevated. Recommendations and plan: As seen above. History of Present Illness Reason for Consultation: CVA Requesting Physician: Deyvi Montes DO Attending Physician: Deyvi Montes DO History of Present Illness The patient is 82-year-old right-handed gentleman, who woke up this morning, and went to the bathroom. He was initially feeling normal, but around 6:15 AM, he noticed right lower extremity weakness, and could not hold himself up. EMS was activated. The patient had a head CT, which was unremarkable and CT angiography of head and neck showed moderate left internal carotid artery stenosis, and significant atherosclerotic plaques. There is no intracranial large vessel occlusion or critical stenosis. The patient was evaluated by telestroke neurologist and he received TNKase around 9 PM. The patient's neurological deficit has been resolved mostly since then. Brain MRI was done, which showed multiple small lesions with diffusion restriction, which was highly suggestive of acute/subacute ischemic strokes. Most of them in left MCA territory but also there was ischemic lesion in anterior cerebral artery territory. There was no hemorrhagic conversion. Cardiac rhythm monitoring has been showing sinus rhythm. The patient denies having stroke symptoms in the past. His blood pressure has been elevated significantly, and he gets as needed labetalol for blood pressure over 180. The patient has history of hyperlipidemia on Lipitor 40 mg. Recent LDL level was slightly over 70. He has multiple stroke risk factors including atherosclerosis, diabetes mellitus, hypertension, hyperlipidemia and also he has history of colon cancer which has been in remission. I have reviewed the patient's chart including imaging studies and visualized them personally. I have discussed the case with the patient and answer his questions in detail. Allergies Allergy/AdvReac Type Severity Reaction Status Date / Time No Known Allergies Allergy NONE Verified 11/11/22 11:49 Home Medications Medication Instructions Recorded Confirmed Type aspirin 81 mg tablet,delayed 81 mg PO QAM 03/04/19 11/11/22 History release hmrumzdz-uconygtn-bkotq acid 400 1 tab PO QAM 03/04/19 04/02/22 History mcg-vit K 20 mcg-lycop 300 mcg tablet (One-A-Day Men's Multivitamin) atorvastatin 40 mg tablet 40 mg PO HS #90 tabs 12/14/21 11/11/22 Rx pantoprazole 40 mg tablet,delayed 40 mg PO QAM 02/26/22 11/11/22 History release metformin 500 mg tablet 500 mg PO QAM #90 tabs 04/16/22 11/11/22 Rx potassium chloride 20 mEq 20 meq PO QAM #90 tabs 08/09/22 11/11/22 Rx tablet,extended release lisinopril 20 1 tab PO QAM #90 tabs 08/27/22 11/11/22 Rx mg-hydrochlorothiazide 25 mg tablet amlodipine 5 mg tablet 5 mg PO DAILY #90 tabs 11/11/22 11/11/22 Rx Patient History Medical History Colon cancer 2014--sx Diabetes mellitus, type 2 Glaucoma Hearing deficit History of colon cancer HTN (hypertension) Hyperlipidemia Hypokalemia PT NOT SURE CURRENT LEVEL Osteoarthritis Tubular adenoma of colon HX Zenker's diverticulum Surgical History History of colonoscopy History of esophagogastroduodenoscopy (EGD) History of eye surgery left eye History of left cataract extraction (~08/2021) History of right cataract extraction History of tooth extraction Status post laparoscopic colectomy 2015 transverse colon mass Family History Mother Cancer Father Cancer Other Coronary heart disease No family history of adverse response to anesthesia Denies family history of Ovarian cancer Prostate cancer Myocardial infarction Breast cancer Colorectal cancer Social History Smoking Status: Former smoker Tobacco Type: Cigarettes Age Started Using Tobacco: 14; Age Quit Using Tobacco: 24; packs per day: 1; Second Hand Exposure: No; Hx Alcohol Use: Yes Alcohol type: beer Alcohol Intake Frequency: 4 or More x per/Week Alcohol Intake Frequency Comment: a couple cans of beer per day Hx Substance Use: No Preferred Language: Portuguese Communication Ability: Effective Visual Impairment: No Limitations Hearing Ability: Use of 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 Aid 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 Service Required: No Beliefs That Will Affect Care: None marital status: Current Living Situation: Spouse current occupational status: retired 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 HENT: Normal exam with inspection. CV: Hearth rhythm is regular. Neck: Supple, no carotid bruits. Lungs: Non-labored and comfortable breathing. Abdomen: Soft, non-tender, non-distended. Skin: No rash or ecchymosis. Extremities: No edema or cyanosis NEUROLOGICAL EXAMINATION: Mental Status: Alert and oriented to place, person and time. Cranial Nerves: II-XII are intact except bilateral SNHI. No nystagmus. Funduscopy: Normal looking optic discs. Motor: 5/5 in all extremities without asymmetry. Tone: Normal without spasticity or rigidity. Sensory: Intact to all sensory modalities. Coordination: No dysmetria with FTN testing. Speech: Fluent. Comprehension is intact. Gait: Not assessed. DTRs: 2- all symmetrically. No Babinsky. Musculoskeletal: Normal muscle bulk, no atrophy. Results & Data ([facility]) Vital Signs (Past 12 Hours) Vital Signs Temp Pulse Pulse Resp BP BP Pulse Ox 11/16/22 18:00 199/109 H 11/16/22 18:09 64 16 176/117 H 98 11/16/22 17:09 64 16 190/108 H 96 11/16/22 16:39 68 16 195/108 H 97 11/16/22 16:09 36.5 C 71 20 192/105 H 95 11/16/22 16:10 70 11/16/22 12:30 68 11/16/22 15:39 67 19 191/102 H 95 11/16/22 15:15 71 15 181/98 H 97 11/16/22 15:09 74 15 220/111 H 96 11/16/22 14:39 36.6 C 72 16 161/106 H 97 11/16/22 14:09 36.4 C L 67 17 192/96 H 96 11/16/22 13:39 36.5 C 68 18 181/95 H 98 11/16/22 13:09 36.5 C 66 17 185/98 H 96 11/16/22 12:39 36.6 C 67 18 182/105 H 97 11/16/22 12:09 36.5 C 73 16 169/95 H 95 11/16/22 11:39 36.5 C 69 16 189/95 H 96 11/16/22 11:34 36.6 C 68 20 183/100 H 96 11/16/22 11:09 68 18 149/91 H 96 11/16/22 10:54 65 18 165/93 H 97 11/16/22 10:39 36.6 C 66 18 178/91 H 99 11/16/22 10:38 36.6 C 66 17 180/95 H 98 11/16/22 10:24 36.6 C 69 18 160/105 H 98 11/16/22 10:09 36.6 C 68 18 173/96 H 97 11/16/22 09:54 36.5 C 66 17 174/94 H 95 11/16/22 09:39 36.6 C 66 18 182/120 H 96 11/16/22 09:24 36.6 C 68 17 187/107 H 97 11/16/22 09:09 67 17 165/90 H 97 11/16/22 08:33 78 17 199/103 H 96 11/16/22 07:25 36.5 C 81 17 180/108 H 97 O2 Del Method 11/16/22 18:00 11/16/22 18:09 Room Air 11/16/22 17:09 Room Air 11/16/22 16:39 Room Air 11/16/22 16:09 Room Air 11/16/22 16:10 11/16/22 12:30 11/16/22 15:39 Room Air 11/16/22 15:15 11/16/22 15:09 Room Air 11/16/22 14:39 Room Air 11/16/22 14:09 Room Air 11/16/22 13:39 Room Air 11/16/22 13:09 Room Air 11/16/22 12:39 Room Air 11/16/22 12:09 Room Air 11/16/22 11:39 Room Air 11/16/22 11:34 Room Air 11/16/22 11:09 Room Air 11/16/22 10:54 Room Air 11/16/22 10:39 Room Air 11/16/22 10:38 Room Air 11/16/22 10:24 Room Air 11/16/22 10:09 Room Air 11/16/22 09:54 Room Air 11/16/22 09:39 Room Air 11/16/22 09:24 Room Air 11/16/22 09:09 Room Air 11/16/22 08:33 Room Air 11/16/22 07:25 Room Air Laboratory Results Laboratory Results - last 24 hr 11/16/22 11/16/22 11/16/22 07:58 08:01 08:01 WBC 3.86 L RBC 3.90 L Hgb 12.5 L Hct 34.6 L MCV 88.7 MCH 32.1 MCHC 36.1 H RDW Std Deviation 36.6 RDW Coeff of Bonnie 11.5 Plt Count 214 MPV 9.3 L Immature Gran % (Auto) 0.5 Neut % (Auto) 57.5 Lymph % (Auto) 32.4 Meeker % (Auto) 8.0 Eos % (Auto) 0.8 Baso % (Auto) 0.8 Neut # (Auto) 2.22 Lymph # (Auto) 1.25 Meeker # (Auto) 0.31 Eos # (Auto) 0.03 Baso # (Auto) 0.03 Immature Gran # (Auto) 0.02 PT INR APTT PTT Ratio Sodium Potassium Chloride Carbon Dioxide Anion Gap BUN Creatinine Est Cr Clr Drug Dosing Est GFR ( Amer) Est GFR (Non-Af Amer) BUN/Creatinine Ratio Glucose POC Glucose 115 H Calcium Magnesium Total Bilirubin AST ALT Alkaline Phosphatase Troponin I High Sens Total Protein Albumin Globulin Albumin/Globulin Ratio Nasal Screen MRSA (PCR) SARS-CoV-2, RNA, NAAT Blood Type O Positive Antibody Screen NEGATIVE 11/16/22 11/16/22 11/16/22 08:01 08:01 09:40 WBC RBC Hgb Hct MCV MCH MCHC RDW Std Deviation RDW Coeff of Bonnie Plt Count MPV Immature Gran % (Auto) Neut % (Auto) Lymph % (Auto) Meeker % (Auto) Eos % (Auto) Baso % (Auto) Neut # (Auto) Lymph # (Auto) Meeker # (Auto) Eos # (Auto) Baso # (Auto) Immature Gran # (Auto) PT 11.9 INR 1.1 APTT 27.8 PTT Ratio 1.0 Sodium 135 L Potassium 3.5 Chloride 98 Carbon Dioxide 31 Anion Gap 6 BUN 8 Creatinine 0.92 Est Cr Clr Drug Dosing Not Reportable Est GFR ( Amer) 90.1 Est GFR (Non-Af Amer) 77.7 BUN/Creatinine Ratio 8.7 L Glucose 119 H POC Glucose Calcium 8.9 Magnesium 1.7 Total Bilirubin 0.6 AST 20 ALT 13 Alkaline Phosphatase 90 Troponin I High Sens 5.1 Total Protein 6.1 Albumin 3.7 Globulin 2.4 L Albumin/Globulin Ratio 1.5 Nasal Screen MRSA (PCR) SARS-CoV-2, RNA, NAAT NEGATIVE Blood Type Antibody Screen 11/16/22 13:07 WBC RBC Hgb Hct MCV MCH MCHC RDW Std Deviation RDW Coeff of Bonnie Plt Count MPV Immature Gran % (Auto) Neut % (Auto) Lymph % (Auto) Meeker % (Auto) Eos % (Auto) Baso % (Auto) Neut # (Auto) Lymph # (Auto) Meeker # (Auto) Eos # (Auto) Baso # (Auto) Immature Gran # (Auto) PT INR APTT PTT Ratio Sodium Potassium Chloride Carbon Dioxide Anion Gap BUN Creatinine Est Cr Clr Drug Dosing Est GFR ( Amer) Est GFR (Non-Af Amer) BUN/Creatinine Ratio Glucose POC Glucose Calcium Magnesium Total Bilirubin AST ALT Alkaline Phosphatase Troponin I High Sens Total Protein Albumin Globulin Albumin/Globulin Ratio Nasal Screen MRSA (PCR) Negative SARS-CoV-2, RNA, NAAT Blood Type Antibody Screen Diagnostic Findings Chest X-Ray 11/16/22 07:32 XR chest 1V portable HISTORY: 82 years-old Male neuro deficit, acute stroke suspected acute strokelike symptoms COMPARISON: Chest CT 08/22/2015 TECHNIQUE: AP view of the chest FINDINGS: Cardiac mediastinal and hilar silhouettes are within normal limits. No pneumothorax, pleural effusion, airspace consolidation or overt pulmonary edema. Degenerative changes of the shoulders and spine. IMPRESSION: No acute process. ACT 112: Negative or not required by law. The above report was generated using voice recognition software. It may contain grammatical, syntax or spelling errors. Electronically signed by: Mason Muhammad M.D. 11/16/2022 8:[address] 11/16/22 07:32 CT angio head w con, CT angio neck with con, CT head/brain wo con CLINICAL HISTORY: 82 years-old Male with neuro deficit, acute stroke suspected. Acute strokelike symptoms COMPARISON STUDY: None TECHNIQUE: Unenhanced axial CT scan of the brain is performed. Subsequently, following the IV administration of 120 cc of Optiray, CT angiogram of the head and neck was performed from the aortic arch to the skull apex. Images are reviewed in the axial, sagittal, and coronal planes. 3-D MIPS images are created and assessed. IV contrast was administered without complication. All measurements were obtained according to NASCET criteria. A dose lowering technique was utilized adhering to the principles of ALARA. CT DOSE: 1152.37 mGy.cm FINDINGS: CT BRAIN: There is no acute intracranial hemorrhage, hydrocephalus, intracranial mass, or acute territorial infarct. There is asymmetric prominence of the extra-axial space lateral to left frontal hemisphere with CSF attenuation measuring up to 4 mm on image 18 series 2. Rightward midline shift of 4 mm may be a chronic finding. Involutional changes with chronic microvascular ischemic disease. There is an ill-defined 1.4 x 1.1 cm area of decreased attenuation within the left internal capsule/lentiform nucleus distribution on image 12 series 2. There is no abnormal intra-axial or extra-axial enhancement. Trace right mastoid effusion. Left mastoid air cells are clear. Prior bilateral lens repair. No calvarial fracture. Paranasal sinuses are clear. CT ANGIOGRAM OF THE HEAD AND NECK: Three-vessel morphology of the thoracic aortic arch. Patency of the innominate and imaged subclavian arteries. Common carotid arteries are patent. Moderate atherosclerotic plaque of the left carotid bulb and proximal left ICA with less than 50% stenosis. Moderate to extensive atherosclerotic plaque of the left carotid bulb and proximal left ICA results in 60% stenosis. The bilateral anterior and middle cerebral arteries are also patent. The vertebrobasilar sy stem and posterior cerebral arteries are widely patent. There is no aneurysm, high-grade stenosis, or proximal branch occlusion identified. Dural sinuses appear patent. Lung apices are generally clear. Unremarkable soft tissues. Degenerative changes of the cervical spine. IMPRESSION: 1. No acute intracranial hemorrhage or acute territorial infarct identified. 2. There is an ill-defined 1.4 cm focus of decreased attenuation within the left internal capsule/lentiform nucleus suggestive of an age-indeterminate lacunar infarct. 3. 60% stenosis of the proximal cervical segment left ICA secondary to atherosclerosis. 4. Otherwise unremarkable CTA of the head and neck. 5. 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 ACT 112: Negative or not required by law. The above report was generated using voice recognition software. It may contain grammatical, syntax or spelling errors. Electronically signed by: Mason Muhammad M.D. 11/16/2022 8:29 AM Head CTA 11/16/22 07:32 CT angio head w con, CT angio neck with con, CT head/brain wo con CLINICAL HISTORY: 82 years-old Male with neuro deficit, acute stroke suspected. Acute strokelike symptoms COMPARISON STUDY: None TECHNIQUE: Unenhanced axial CT scan of the brain is performed. Subsequently, following the IV administration of 120 cc of Optiray, CT angiogram of the head and neck was performed from the aortic arch to the skull apex. Images are reviewed in the axial, sagittal, and coronal planes. 3-D MIPS images are created and assessed. IV contrast was administered without complication. All measurements were obtained according to NASCET criteria. A dose lowering technique was utilized adhering to the principles of ALARA. CT DOSE: 1152.37 mGy.cm FINDINGS: CT BRAIN: There is no acute intracranial hemorrhage, hydrocephalus, intracranial mass, or acute territorial infarct. There is asymmetric prominence of the extra-axial space lateral to left frontal hemisphere with CSF attenuation measuring up to 4 mm on image 18 series 2. Rightward midline shift of 4 mm may be a chronic finding. Involutional changes with chronic microvascular ischemic disease. There is an ill-defined 1.4 x 1.1 cm area of decreased attenuation within the left internal capsule/lentiform nucleus distribution on image 12 series 2. There is no abnormal intra-axial or extra-axial enhancement. Trace right mastoid effusion. Left mastoid air cells are clear. Prior bilateral lens repair. No calvarial fracture. Paranasal sinuses are clear. CT ANGIOGRAM OF THE HEAD AND NECK: Three-vessel morphology of the thoracic aortic arch. Patency of the innominate and imaged subclavian arteries. Common carotid arteries are patent. Moderate atherosclerotic plaque of the left carotid bulb and proximal left ICA with less than 50% stenosis. Moderate to extensive atherosclerotic plaque of the left carotid bulb and proximal left ICA results in 60% stenosis. The bilateral anterior and middle cerebral arteries are also patent. The vertebrobasilar system and posterior cerebral arteries are widely patent. There is no aneurysm, high-grade stenosis, or proximal branch occlusion identified. Dural sinuses appear patent. Lung apices are generally clear. Unremarkable soft tissues. Degenerative changes of the cervical spine. IMPRESSION: 1. No acute intracranial hemorrhage or acute territorial infarct identified. 2. There is an ill-defined 1.4 cm focus of decreased attenuation within the left internal capsule/lentiform nucleus suggestive of an age-indeterminate lacunar infarct. 3. 60% stenosis of the proximal cervical segment left ICA secondary to atherosclerosis. 4. Otherwise unremarkable CTA of the head and neck. 5. 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 ACT 112: Negative or not required by law. The above report was generated using voice recognition software. It may contain grammatical, syntax or spelling errors. Electronically signed by: Mason Muhammad M.D. 11/16/2022 8:29 AM Neck CTA 11/16/22 07:32 CT angio head w con, CT angio neck with con, CT head/brain wo con CLINICAL HISTORY: 82 years-old Male with neuro deficit, acute stroke suspected. Acute strokelike symptoms COMPARISON STUDY: None TECHNIQUE: Unenhanced axial CT scan of the brain is performed. Subsequently, following the IV administration of 120 cc of Optiray, CT angiogram of the head and neck was performed from the aortic arch to the skull apex. Images are reviewed in the axial, sagittal, and coronal planes. 3-D MIPS images are created and assessed. IV contrast was administered without complication. All measurements were obtained according to NASCET criteria. A dose lowering technique was utilized adhering to the principles of ALARA. CT DOSE: 1152.37 mGy.cm FINDINGS: CT BRAIN: There is no acute intracranial hemorrhage, hydrocephalus, intracranial mass, or acute territorial infarct. There is asymmetric prominence of the extra-axial space lateral to left frontal hemisphere with CSF attenuation measuring up to 4 mm on image 18 series 2. Rightward midline shift of 4 mm may be a chronic finding. Involutional changes with chronic microvascular ischemic disease. There is an ill-defined 1.4 x 1.1 cm area of decreased attenuation within the left internal capsule/lentiform nucleus distribution on image 12 series 2. There is no abnormal intra-axial or extra-axial enhancement. Trace right mastoid effusion. Left mastoid air cells are clear. Prior bilateral lens repair. No calvarial fracture. Paranasal sinuses are clear. CT ANGIOGRAM OF THE HEAD AND NECK: Three-vessel morphology of the thoracic aortic arch. Patency of the innominate and imaged subclavian arteries. Common carotid arteries are patent. Moderate atherosclerotic plaque of the left carotid bulb and proximal left ICA with less than 50% stenosis. Moderate to extensive atherosclerotic plaque of the left carotid bulb and proximal left ICA results in 60% stenosis. The bilateral anterior and middle cerebral arteries are also patent. The vertebrobasilar system and posterior cerebral arteries are widely patent. There is no aneurysm, high-grade stenosis, or proximal branch occlusion identified. Dural sinuses appear patent. Lung apices are generally clear. Unremarkable soft tissues. Degenerative changes of the cervical spine. IMPRESSION: 1. No acute intracranial hemorrhage or acute territorial infarct identified. 2. There is an ill-defined 1.4 cm focus of decreased attenuation within the left internal capsule/lentiform nucleus suggestive of an age-indeterminate lacunar infarct. 3. 60% stenosis of the proximal cervical segment left ICA secondary to atherosclerosis. 4. Otherwise unremarkable CTA of the head and neck. 5. 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 ACT 112: Negative or not required by law. The above report was generated using voice recognition software. It may contain grammatical, syntax or spelling errors. Electronically signed by: Mason Muhammad M.D. 11/16/2022 8:29 AM Brain MRI 11/16/22 10:16 MR brain wo/w con HISTORY: 82 years-old Male CVA s/p TPA acute strokelike symptoms COMPARISON: Head CT, CTA head and neck of same day TECHNIQUE: Multiplanar multisequence MRI of the brain was obtained both with and without the use of 7 cc Gadavist FINDINGS: There are several small foci of restricted diffusion within the superior left frontal parietal lobes to the vertex measuring up to 1.6 cm which are pred ominantly cortically based and also within the subcortical white matter. Probable additional punctate focus within the periventricular left frontal lobe on image 14 series 4. These foci demonstrate decreased signal on ADC map with increased T2/FLAIR signal and minimal cortical enhancement of the left parietal lobe on image 92 series 11. Additional subtle cortical enhancement of the left frontal lobe (please see bookmarks). No acute or subacute territorial infarct. Midline structures are unremarkable. Degenerative changes of the cervical spine. No acute intracranial hemorrhage, midline shift, hydrocephalus or intracranial mass. Asymmetry within the extra-axial space adjacent to the left cerebral hemisphere redemonstrated measuring up to approximately 8 mm following CSF signal on all sequences suggestive of a subdural hygroma. No acute extra-axial hemorrhage. Involutional changes with moderate chronic microvascular ischemic disease. Probable chronic basal ganglia lacunar infarcts. Cerebral venous sinuses and major arterial flow voids appear patent. Prior bilateral lens repair. The skull and soft tissues are unremarkable. Trace mastoid effusions. Minimal mucosal thickening of the paranasal sinuses. IMPRESSION: 1. Small acute to subacute infarcts of the superior left frontal parietal lobes measure up to approximately 1.5 cm 2. Involutional changes with chronic microvascular ischemic disease. 3. Subtle cortical based enhancement of the left frontal and parietal lobes may be related to the aforementioned infarcts. As a precautionary measure, a 2 month follow-up brain MRI recommended. ACT 112: Negative or not required by law. The above report was generated using voice recognition software. It may contain grammatical, syntax or spelling errors. Electronically signed by: Mason Muhammad M.D. 11/16/2022 12:27 PM
[2022-11-17] MEDS: LABETALOL HCL IV 5 MG/ML 20ML IV PRN ×2 (05:07→08:10)
--- NOTE | 2022-11-17 06:52 | Hospitalist Progress Note ---
Date of Service November 17, 2022 Assessment & Plan (1) Acute CVA (cerebrovascular accident): Plan: Malvin Higgins is an 82-year-old with PMH of DM2, HTN, HLD, h/o colon cancer who presented due to right-sided weakness. Was found to have CVA, now s/p TNKase. Left Hemispheric CVA Right LE weakness, symptoms resolved shortly after administration of TNKase (11/16 at 09:09). MRI with several small acute/subacute infarcts in L MCA territory. Neck CTA with 60% stenosis of proximal cervical segment of left ICA as well as well as bilateral carotid atherosclerotic plaques. --> suspect thromboembolic mechanism of CVA 2/2 to left ICA disease - care per ICU (monitoring s/p TNKase), Neurology consulted as well - consulted vascular surgery for eval of symptomatic ICA disease - appreciate recs - repeat CT head w/o contrast this AM without abnormalities/hemorrhagic conversion - has required several doses of Labetalol for SBP 180s - continue with Lopressor 12.5mg PO BID today - secondary prevention: - start daily baby ASA and Plavix 75mg, after 3 weeks transition to monotherapy, per Neurology - lipid profile 11/11: LDL 84 - increased Atorvastatin from 40mg to 80mg - h/o T2DM, last A1c 5.8, no changes in home regimen - minimal smoking history and not current -PT/OT consults pending HTN Remains hypertensive to 180s/110s with need for several doses of Labetalol IV in last 24 hours. - start Lopressor 12.5mg PO BID today as stated above - re-start home Lisinopril 20mg PO today - remainder of home meds currently held (HCTZ 25mg, Amlodipine 5mg) - plan to re-introduce as tolerated - acute goal BP <180/110, with chronic goal 130/80 HLD LDL 84, increased Atorvastatin to 80mg as above. - repeat fasting lipids in 3 months - per PCP T2DM A1c 5.8 on 11/11. Well-controlled with diet/Metformin - Hold metformin while hospitalized, utilize SSI GERD Continue home Protonix DVT ppx: chemoppx contraindicated in the setting of TNKase Diet: Heart-healthy/DM2 Dispo: downgrade to med/surg, PT/OT evals pending CODE STATUS: Full (2) Hyperlipidemia: (3) HTN (hypertension): (4) Diabetes mellitus, type 2: (5) History of colon cancer: (6) Arthritis: (7) Allergic rhinitis: Admission and Anticipated Discharge Date Admission Date: November 16, 2022 Supervising Physician Co-Signing Physician Notes I personally examined the patient and verified all hirsch points of history and exam, discussed case, and agree with decision making with Dr Ulrich No acute complaints or problems.. Vitals noted, in general he is awake and alert pleasant no distress. Breathing unlabored no accessory muscle use good effort. Skin shows no rashes no pallor or icterus. Exam otherwise as above Stroke status post TNKvigilance, serial exams, supportive care. Repeat CT without bleed. Secondary risk reduction. Eventual vascular surgery evaluation for carotid on ipsilateral side of stroke. Otherwise continue current care, probable rehab placement, continue PT/OT eval and treat Subjective On discussion with the patient this morning he reports that right LE weakness continues to be resolved. No other complaints. Eating/drinking well. Slept well overall. Denies previous CVA/TIA symptoms before. Occasional smoking many years ago, in high school, but never consistent or sustained. Review of Systems Review of Systems: All systems reviewed & are unremarkable except as noted in HPI & below Physical Exam Physical Exam: General: A&Ox3. NAD. Cooperative. HEENT: Atraumatic, normocephalic. Hard of hearing. Pulm: CTAB A&P. -wheezes, -rales, -rhonchi. Symmetrical chest rise. No increase work of breathing. No respiratory distress. Cardiac: RRR, -mrg. Radial pulses intact and symmetrical. No LE edema Abdominal: soft, non-tender, non-distended, BS x 4 Neurologic: patellar DTR's 2+ bilat, sensation intact and PERRL, EOMI, accommodation nl, no face palsy, no dysarthria normal touch/pain/proprioception, CN's II-XI intact bilaterally, deep tendon reflexes 2+ bilaterally, moves all extremities and awake; no focal motor deficits Results & Data Results & Data ([facility]) Vital Signs (Past 12 Hours) Vital Signs Temp Pulse Pulse Resp BP Pulse Ox O2 Del Method 11/17/22 06:09 36.9 C 69 16 172/97 H 94 Room Air 11/17/22 05:09 36.9 C 66 16 133/84 93 Room Air 11/17/22 05:00 197/101 H 11/17/22 04:09 36.9 C 70 16 161/93 H 94 Room Air 11/17/22 03:09 36.9 C 70 18 150/89 H 93 Room Air 11/17/22 02:09 36.7 C 79 18 157/110 H 94 Room Air 11/17/22 01:09 36.7 C 74 18 158/104 H 94 Room Air 11/17/22 00:09 36.7 C 73 18 178/92 H 94 Room Air 11/16/22 23:00 68 11/16/22 23:09 36.7 C 69 70 H 153/95 H 95 Room Air 11/16/22 22:09 36.7 C 72 16 161/86 H 95 Room Air 11/16/22 21:09 36.7 C 73 18 159/81 H 94 Room Air 11/16/22 20:09 36.7 C 68 16 159/87 H 95 Room Air 11/16/22 19:09 36.7 C 63 20 180/97 H 95 Room Air Resident Activity Tracking Resident Involvement: Resident Care Provided Care Provided: Adult Hospital Medicine
[2022-11-17] MEDS: INSULIN ASPART PER UNIT SC SCH ×4 (07:21→21:06)
[2022-11-17] MEDS: ICU Protocol for HYPERglycemia SCH ×2 (07:21→11:26)
[2022-11-17] MEDS: SODIUM CHLORIDE 0.9% 1000ML 1,000 ML IV SCH (07:38)
--- NOTE | 2022-11-17 07:40 | Critical Care Progress Note ---
Date of Service November 17, 2022 Assessment & Plan (1) Acute CVA (cerebrovascular accident): (2) tPA adm status 24 hr [employer]LECT[employer]: (3) HTN (hypertension): (4) Diabetes mellitus, type 2: Plan Impression: 82-year-old male admitted with strokelike symptoms status post TNKase administration. Stroke symptoms have resolved. He has follow-up CT scan pending. Recommendations: 1. Acute stroke: Status post thrombolytics. Follow-up CT scan at 9:00 this morning. If negative, the patient can downgrade out of the ICU to telemetry status on the floor. 2. PT and OT evaluations today after follow-up CT scan. 3. Discontinue IV fluids. 4. Start metoprolol 12.5 mg p.o. twice daily. Try and keep blood pressure down below 170 with gradual lowering over the next several days. 5. Continue antilipid medications, glycemic control, and antiplatelet therapy once CT of the head completed and if no evidence of hemorrhage. Patient can likely transfer out of the ICU after his follow-up CT scan if it demonstrates no acute change. Critical care services will sign off at that point time and care will be dictated by the hospitalist. Feel free to contact us with questions or concerns. Admission and Anticipated Discharge Date Admission Date: November 16, 2022 Subjective Patient seen and examined. Discussed with bedside critical care nurse. The patient is awake eating breakfast. He is not had any issues overnight. His blood pressures run slightly high. His NIH is 0. He has no complaints this morning Review of Systems Review of Systems: All systems reviewed & are unremarkable except as noted in Subjective Physical Exam Constitutional: WD/WN, vitals as above Neck: trachea midline, no thyromegaly Respiratory: normal respiratory effort, lungs clear to auscultation Cardiovascular: RRR, no murmur, no edema Gastrointestinal (Abdomen): normal bowel sounds, soft, nontender, no hepatos plenomegaly Musculoskeletal: Extremities: extremities normal to inspection Skin: no rashes, warm and dry Neurologic: Nonfocal exam Lymphatic: no cervical lymphadenopathy Results & Data Results & Data ([facility]) Vital Signs (Past 12 Hours) Vital Signs Temp Pulse Pulse Resp BP Pulse Ox O2 Del Method 11/17/22 06:09 36.9 C 69 16 172/97 H 94 Room Air 11/17/22 05:09 36.9 C 66 16 133/84 93 Room Air 11/17/22 05:00 197/101 H 11/17/22 04:09 36.9 C 70 16 161/93 H 94 Room Air 11/17/22 03:09 36.9 C 70 18 150/89 H 93 Room Air 11/17/22 02:09 36.7 C 79 18 157/110 H 94 Room Air 11/17/22 01:09 36.7 C 74 18 158/104 H 94 Room Air 11/17/22 00:09 36.7 C 73 18 178/92 H 94 Room Air 11/16/22 23:00 68 11/16/22 23:09 36.7 C 69 70 H 153/95 H 95 Room Air 11/16/22 22:09 36.7 C 72 16 161/86 H 95 Room Air 11/16/22 21:09 36.7 C 73 18 159/81 H 94 Room Air 11/16/22 20:09 36.7 C 68 16 159/87 H 95 Room Air Critical Care Results & Data Vital Signs (Past 12 Hours) Vital Signs Temp Pulse Pulse Resp BP Pulse Ox O2 Del Method 11/17/22 06:09 36.9 C 69 16 172/97 H 94 Room Air 11/17/22 05:09 36.9 C 66 16 133/84 93 Room Air 11/17/22 05:00 197/101 H 11/17/22 04:09 36.9 C 70 16 161/93 H 94 Room Air 11/17/22 03:09 36.9 C 70 18 150/89 H 93 Room Air 11/17/22 02:09 36.7 C 79 18 157/110 H 94 Room Air 11/17/22 01:09 36.7 C 74 18 158/104 H 94 Room Air 11/17/22 00:09 36.7 C 73 18 178/92 H 94 Room Air 11/16/22 23:00 68 11/16/22 23:09 36.7 C 69 70 H 153/95 H 95 Room Air 11/16/22 22:09 36.7 C 72 16 161/86 H 95 Room Air 11/16/22 21:09 36.7 C 73 18 159/81 H 94 Room Air 11/16/22 20:09 36.7 C 68 16 159/87 H 95 Room Air Lab & Micro Results (Past 24 Hours) RBC 3.90 M/uL (4.70-6.10) L 11/16/22 WBC 3.86 K/ul (4.8-10.8) L 11/16/22 Hgb 12.5 g/dl (14.0-18.0) L 11/16/22 Hct 34.6 % (42.0-52.0) L 11/16/22 MCV 88.7 fL (80.0-100.0) 11/16/22 MCH 32.1 pg (25.0-34.0) 11/16/22 MCHC 36.1 g/dL (32.0-36.0) H 11/16/22 RDW Standard Deviation 36.6 fL (36.4-46.3) 11/16/22 RDW Coefficient of Variation 11.5 % (11.5-14.5) 11/16/22 Plt Count 214 K/uL (130-400) 11/16/22 MPV 9.3 fL (9.4-12.4) L 11/16/22 Neutrophils (%) (Auto) 57.5 % 11/16/22 Lymphocytes (%) (Auto) 32.4 % 11/16/22 Monocytes # (Auto) 0.31 K/uL (0.11-0.59) 11/16/22 Eosinophils # (Auto) 0.03 K/uL (0-0.50) 11/16/22 Immature Granulocyte % (Auto) 0.5 % 11/16/22 Neutrophils # (Auto) 2.22 K/uL (1.40-6.50) 11/16/22 Lymphocytes # (Auto) 1.25 K/uL (1.2-3.4) 11/16/22 Monocytes # (Auto) 0.31 K/uL (0.11-0.59) 11/16/22 Eosinophils # (Auto) 0.03 K/uL (0-0.50) 11/16/22 Basophils # (Auto) 0.03 K/uL (0-0.2) 11/16/22 Immature Granulocyte # (Auto) 0.02 K/uL (0.01-0.20) 3 Na 135 mmol/L (136-145) L 11/16/22 K 3.5 mmol/L (3.5-5.1) 11/16/22 Cl 98 mmol/L (98-107) 11/16/22 CO2 31 mmol/L (21-32) 11/16/22 Anion Gap 6 (3-11) 11/16/22 BUN 8 mg/dl (6-23) 11/16/22 Creatinine 0.92 mg/dl (0.6-1.4) 11/16/22 Estimated GFR ( Amer) 90.1 ml/min 11/16/22 Estimated GFR (Non-Af Amer) 77.7 ml/min 11/16/22 BUN/Creatinine Ratio 8.7 (10-20) L 11/16/22 Glu 119 mg/dl (70-99(Fasting)) H 11/16/22 Ca 8.9 mg/dl (8.5-10.1) 11/16/22 Total Bilirubin 0.6 mg/dl (0.2-1.0) 11/16/22 AST 20 U/L (13-39) 11/16/22 ALT 13 U/L (7-52) 11/16/22 Alkaline Phosphatase 90 U/L (34-104) 11/16/22 TP 6.1 gm/dl (6.0-8.3) 11/16/22 Albumin 3.7 gm/dl (3.4-5.0) 11/16/22 Globulin 2.4 gm/dl (2.5-4.0) L 11/16/22 Albumin/Globulin Ratio 1.5 (0.9-2) 11/16/22 Mg 1.7 mg/dl (1.7-2.4) 11/16/22 08:01 Calcium Level 8.9 mg/dl (8.5-10.1) 11/16/22 08:01 Prothromb Time International Ratio 1.1 (0.9-1.1) 11/16/22 08:0 1 Diagnostic Findings (Past 24 Hours) Chest X-Ray 11/16/22 07:32 XR chest 1V portable HISTORY: 82 years-old Male neuro deficit, acute stroke suspected acute strokelike symptoms COMPARISON: Chest CT 08/22/2015 TECHNIQUE: AP view of the chest FINDINGS: Cardiac mediastinal and hilar silhouettes are within normal limits. No pneumothorax, pleural effusion, airspace consolidation or overt pulmonary edema. Degenerative changes of the shoulders and spine. IMPRESSION: No acute process. ACT 112: Negative or not required by law. The above report was generated using voice recognition software. It may contain grammatical, syntax or spelling errors. Electronically signed by: Mason Muhammad M.D. 11/16/2022 8:[address] 11/16/22 07:32 CT angio head w con, CT angio neck with con, CT head/brain wo con CLINICAL HISTORY: 82 years-old Male with neuro deficit, acute stroke suspected. Acute strokelike symptoms COMPARISON STUDY: None TECHNIQUE: Unenhanced axial CT scan of the brain is performed. Subsequently, following the IV administration of 120 cc of Optiray, CT angiogram of the head and neck was performed from the aortic arch to the skull apex. Images are reviewed in the axial, sagittal, and coronal planes. 3-D MIPS images are created and assessed. IV contrast was administered without complication. All measurements were obtained according to NASCET criteria. A dose lowering technique was utilized adhering to the principles of ALARA. CT DOSE: 1152.37 mGy.cm FINDINGS: CT BRAIN: There is no acute intracranial hemorrhage, hydrocephalus, intracranial mass, or acute territorial infarct. There is asymmetric prominence of the extra-axial space lateral to left frontal hemisphere with CSF attenuation measuring up to 4 mm on image 18 series 2. Rightward midline shift of 4 mm may be a chronic finding. Involutional changes with chronic microvascular ischemic disease. There is an ill-defined 1.4 x 1.1 cm area of decreased attenuation within the left internal capsule/lentiform nucleus distribution on image 12 series 2. There is no abnormal intra-axial or extra-axial enhancement. Trace right mastoid effusion. Left mastoid air cells are clear. Prior bilateral lens repair. No calvarial fracture. Paranasal sinuses are clear. CT ANGIOGRAM OF THE HEAD AND NECK: Three-vessel morphology of the thoracic aortic arch. Patency of the innominate and imaged subclavian arteries. Common carotid arteries are patent. Moderate atherosclerotic plaque of the left carotid bulb and proximal left ICA with less than 50% stenosis. Moderate to extensive atherosclerotic plaque of the left carotid bulb and proximal left ICA results in 60% stenosis. The bilateral anterior and middle cerebral arteries are also patent. The vertebrobasilar system and posterior cerebral arteries are widely patent. There is no aneurysm, high-grade stenosis, or proximal branch occlusion identified. Dural sinuses appear patent. Lung apices are generally clear. Unremarkable soft tissues. Degenerative changes of the cervical spine. IMPRESSION: 1. No acute intracranial hemorrhage or acute territorial infarct identified. 2. There is an ill-defined 1.4 cm focus of decreased attenuation within the left internal capsule/lentiform nucleus suggestive of an age-indeterminate lacunar infarct. 3. 60% stenosis of the proximal cervical segment left ICA secondary to atherosclerosis. 4. Otherwise unremarkable CTA of the head and neck. 5. 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 ACT 112: Negative or not required by law. The above report was generated using voice recognition software. It may contain grammatical, syntax or spelling errors. Electronically signed by: Mason Muhammad M.D. 11/16/2022 8:29 AM Head CTA 11/16/22 07:32 CT angio head w con, CT angio neck with con, CT head/brain wo con CLINICAL HISTORY: 82 years-old Male with neuro deficit, acute stroke suspected. Acute strokelike symptoms COMPARISON STUDY: None TECHNIQUE: Unenhanced axial CT scan of the brain is performed. Subsequently, following the IV administration of 120 cc of Optiray, CT angiogram of the head and neck was performed from the aortic arch to the skull apex. Images are reviewed in the axial, sagittal, and coronal planes. 3-D MIPS images are created and assessed. IV contrast was administered without complication. All measurements were obtained according to NASCET criteria. A dose lowering technique was utilized adhering to the principles of ALARA. CT DOSE: 1152.37 mGy.cm FINDINGS: CT BRAIN: There is no acute intracranial hemorrhage, hydrocephalus, intracranial mass, or acute territorial infarct. There is asymmetric prominence of the extra-axial space lateral to left frontal hemisphere with CSF attenuation measuring up to 4 mm on image 18 series 2. Rightward midline shift of 4 mm may be a chronic finding. Involutional changes with chronic microvascular ischemic disease. There is an ill-defined 1.4 x 1.1 cm area of decreased attenuation within the left internal capsule/lentiform nucleus distribution on image 12 series 2. There is no abnormal intra-axial or extra-axial enhancement. Trace right mastoid effusion. Left mastoid air cells are clear. Prior bilateral lens repair. No calvarial fracture. Paranasal sinuses are clear. CT ANGIOGRAM OF THE HEAD AND NECK: Three-vessel morphology of the thoracic aortic arch. Patency of the innominate and imaged subclavian arteries. Common carotid arteries are patent. Moderate atherosclerotic plaque of the left carotid bulb and proximal left ICA with less than 50% stenosis. Moderate to extensive atherosclerotic plaque of the left carotid bulb and proximal left ICA results in 60% stenosis. The bilateral anterior and middle cerebral arteries are also patent. The vertebrobasilar system and posterior cerebral arteries are widely patent. There is no aneurysm, high-grade stenosis, or proximal branch occlusion identified. Dural sinuses appear patent. Lung apices are generally clear. Unremarkable soft tissues. Degenerative changes of the cervical spine. IMPRESSION: 1. No acute intracranial hemorrhage or acute territorial infarct identified. 2. There is an ill-defined 1.4 cm focus of decreased attenuation within the left internal capsule/lentiform nucleus suggestive of an age-indeterminate lacunar infarct. 3. 60% stenosis of the proximal cervical segment left ICA secondary to atherosclerosis. 4. Otherwise unremarkable CTA of the head and neck. 5. 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 ACT 112: Negative or not required by law. The above report was generated using voice recognition software. It may contain grammatical, syntax or spelling errors. Electronically signed by: Mason Muhammad M.D. 11/16/2022 8:29 AM Neck CTA 11/16/22 07:32 CT angio head w con, CT angio neck with con, CT head/brain wo con CLINICAL HISTORY: 82 years-old Male with neuro deficit, acute stroke suspected. Acute strokelike symptoms COMPARISON STUDY: None TECHNIQUE: Unenhanced axial CT scan of the brain is performed. Subsequently, following the IV administration of 120 cc of Optiray, CT angiogram of the head and neck was performed from the aortic arch to the skull apex. Images are reviewed in the axial, sagittal, and coronal planes. 3-D MIPS images are created and assessed. IV contrast was administered without complication. All measurements were obtained according to NASCET criteria. A dose lowering technique was utilized adhering to the principles of ALARA. CT DOSE: 1152.37 mGy.cm FINDINGS: CT BRAIN: There is no acute intracranial hemorrhage, hydrocephalus, intracranial mass, or acute territorial infarct. There is asymmetric prominence of the extra-axial space lateral to left frontal hemisphere with CSF attenuation measuring up to 4 mm on image 18 series 2. Rightward midline shift of 4 mm may be a chronic finding. Involutional changes with chronic microvascular ischemic disease. There is an ill-defined 1.4 x 1.1 cm area of decreased attenuation within the left internal capsule/lentiform nucleus distribution on image 12 series 2. There is no abnormal intra-axial or extra-axial enhancement. Trace right mastoid effusion. Left mastoid air cells are clear. Prior bilateral lens repair. No calvarial fracture. Paranasal sinuses are clear. CT ANGIOGRAM OF THE HEAD AND NECK: Three-vessel morphology of the thoracic aortic arch. Patency of the innominate and imaged subclavian arteries. Common carotid arteries are patent. Moderate atherosclerotic plaque of the left carotid bulb and proximal left ICA with less than 50% stenosis. Moderate to extensive atherosclerotic plaque of the left carotid bulb and proximal left ICA results in 60% stenosis. The bilateral anterior and middle cerebral arteries are also patent. The vertebrobasilar system and posterior cerebral arteries are widely patent. There is no aneurysm, high-grade stenosis, or proximal branch occlusion identified. Dural sinuses appear patent. Lung apices are generally clear. Unremarkable soft tissues. Degenerative changes of the cervical spine. IMPRESSION: 1. No acute intracranial hemorrhage or acute territorial infarct identified. 2. There is an ill-defined 1.4 cm focus of decreased attenuation within the left internal capsule/lentiform nucleus suggestive of an age-indeterminate lacunar infarct. 3. 60% stenosis of the proximal cervical segment left ICA secondary to atherosclerosis. 4. Otherwise unremarkable CTA of the head and neck. 5. 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 ACT 112: Negative or not required by law. The above report was generated using voice recognition software. It may contain grammatical, syntax or spelling errors. Electronically signed by: Mason Muhammad M.D. 11/16/2022 8:29 AM Brain MRI 11/16/22 10:16 MR brain wo/w con HISTORY: 82 years-old Male CVA s/p TPA acute strokelike symptoms COMPARISON: Head CT, CTA head and neck of same day TECHNIQUE: Multiplanar multisequence MRI of the brain was obtained both with and without the use of 7 cc Gadavist FINDINGS: There are several small foci of restricted diffusion within the superior left frontal parietal lobes to the vertex measuring up to 1.6 cm which are predominantly cortically based and also within the subcortical white matter. Probable additional punctate focus within the periventricular left frontal lobe on image 14 series 4. These foci demonstrate decreased signal on ADC map with increased T2/FLAIR signal and minimal cortical enhancement of the left parietal lobe on image 92 series 11. Additional subtle cortical enhancement of the left frontal lobe (please see bookmarks). No acute or subacute territorial infarct. Midline structures are unremarkable. Degenerative changes of the cervical spine. No acute intracranial hemorrhage, midline shift, hydrocephalus or intracranial mass. Asymmetry within the extra-axial space adjacent to the left cerebral hemisphere redemonstrated measuring up to approximately 8 mm following CSF signal on all sequences suggestive of a subdural hygroma. No acute extra-axial hemorrhage. Involutional changes with moderate chronic microvascular ischemic disease. Probable chronic basal ganglia lacunar infarcts. Cerebral venous sinuses and major arterial flow voids appear patent. Prior bilateral lens repair. The skull and soft tissues are unremarkable. Trace mastoid effusions. Minimal mucosal thickening of the paranasal sinuses. IMPRESSION: 1. Small acute to subacute infarcts of the superior left frontal parietal lobes measure up to approximately 1.5 cm 2. Involutional changes with chronic microvascular ischemic disease. 3. Subtle cortical based enhancement of the left frontal and parietal lobes may be related to the aforementioned infarcts. As a precautionary measure, a 2 month follow-up brain MRI recommended. ACT 112: Negative or not required by law. The above report was generated using voice recognition software. It may contain grammatical, syntax or spelling errors. Electronically signed by: Mason Muhammad M.D. 11/16/2022 12:27 PM I & O Totals 24 Hours 11/16/22 11/17/22 11/18/22 06:59 06:59 06:59 Intake Total 1360 / 1360 Output Total 1001 / 1001 Balance 359 / 359 Cumulative 11/16/22 07:20 thru 11/17/22 06:00 Intake Total 1360 Output Total 1001 Balance 359 RT Ventilator Mngmt (Last Documented) Ventilator Ordered Settings Respiratory Rate 16 11/17/22 06:09 Ventilator - PT Measurements Respiratory Rate 16 Coding Level of Care Code 51665 SUB INP/OBS CARE 2/35MIN Diagnoses Acute CVA (cerebrovascular accident) I63.9 tPA adm status 24 hr [employer] Z92.82 HTN (hypertension) I10 Diabetes mellitus, type 2 E11.9
[2022-11-17] MEDS: METOPROLOL TARTRATE 25 MG TAB PO SCH ×2 (07:59→22:25)
[2022-11-17] MEDS: ATORVASTATIN 40 MG TAB PO SCH (08:00)
[2022-11-17] MEDS: PANTOprazole 40 MG TAB PO SCH (08:00)
--- NOTE | 2022-11-17 09:48 | CT Scan Report ---
CT SCAN OF THE BRAIN WITHOUT IV CONTRAST CLINICAL HISTORY: Stroke status post TPA. COMPARISON STUDY: CT and MRI of the brain dated 11/16/2022. TECHNIQUE: Unenhanced axial CT scan of the brain is performed from the vertex to the skull base. A do se lowering technique was utilized adhering to the principles of ALARA. CT DOSE: 614.27 mGy.cm FINDINGS: Brain parenchyma: There is age-related involutional change noting mild to moderate subcortical and pe riventricular microangiopathic disease. There is no hemorrhage, mass effect, or evidence of acute ter ritorial ischemia by CT criteria. A chronic lacunar infarct is noted in the right basal ganglia. A lo w-attenuation focus in the left basal ganglia is unchanged. Boyd-white matter differentiation is pres erved. Prominent cerebrospinal fluid along the left convexity versus a small hygroma is unchanged. No extra-axial hemorrhage is seen. Ventricles, sulci, cisterns: Prominent secondary to involutional change. Intracranial vasculature: There is atherosclerotic calcification of the cavernous carotid arteries. Calvarium: Unremarkable. Sinuses and mastoids: The visualized paranasal sinuses are clear. The mastoid air cells are well pneu matized. Orbits: The bony orbits are grossly intact. There are bilateral ocular lens implants. IMPRESSION: 1. There is no hemorrhage, mass effect, or evidence of acute territorial ischemia by CT criteria. 2. Tiny infarcts seen on yesterday's MRI are not visualized by CT. There is no evidence of hemorrhagi c conversion. 3. Prominent cerebral spinal fluid versus a small hygroma along the left convexity is unchanged. ACT 112: Negative or not required by law. Electronically signed by: Costa Joseph M.D. 11/17/2022 9:46 AM
[2022-11-17 10:04] LABS: Basophils # (auto) 0.03 K/uL (0-0.2); Basophils % (auto) 0.6 %; Eosinophils # (auto) 0.03 K/uL (0-0.50); Eosinophils % (auto) 0.6 %; Hematocrit (blood only) 34.9 % (42.0-52.0); Hemoglobin 12.7 g/dl (14.0-18.0); Immature Granulocytes # (auto) 0.01 K/uL (0.01-0.20); Immature Granulocytes % (auto) 0.2 %; Lymphocytes # (auto) 1.34 K/uL (1.2-3.4); Lymphocytes % (auto) 24.6 %; Mean Corpuscular Hemoglobin 32.2 pg (25.0-34.0); Mean Corpuscular Hgb Conc 36.4 g/dL (32.0-36.0); Mean Corpuscular Volume 88.4 fL (80.0-100.0); Mean Platelet Volume 9.3 fL (9.4-12.4); Monocytes # (auto) 0.35 K/uL (0.11-0.59); Monocytes % (auto) 6.4 %; Neutrophils # (auto) 3.68 K/uL (1.40-6.50); Neutrophils % (auto) 67.6 %; Platelet Count 216 K/uL (130-400); RDW Coefficient of Variation 11.7 % (11.5-14.5); RDW Standard Deviation 37.9 fL (36.4-46.3); Red Blood Count 3.95 M/uL (4.70-6.10); White Blood Count 5.44 K/ul (4.8-10.8)
--- NOTE | 2022-11-17 10:15 | XCELERA ---
[id number] \\[id number]
[2022-11-17 10:26] LABS: Albumin Level 3.6 gm/dl (3.4-5.0); BUN Creatinine Ratio 10.5 (10-20); Bilirubin Direct 0.2 mg/dl (0-0.2); Bilirubin,Total 0.8 mg/dl (0.2-1.0); Calcium 8.5 mg/dl (8.5-10.1); Chol HDL Ratio 2.7 (0-5); Creatinine Clr Calc Pharmacy 65.2 ml/min; Est GFR (African American) 94.3 ml/min; Est GFR (Non-African American) 81.3 ml/min; Magnesium 1.8 mg/dl (1.7-2.4); Phosphorus 2.3 mg/dl (2.5-4.9); Potassium 3.5 mmol/L (3.5-5.1); Total Protein 5.9 gm/dl (6.0-8.3)
[2022-11-17] MEDS: ASPIRIN 81 MG ECTAB PO SCH (11:25)
[2022-11-17] MEDS: lisinopril 20 MG TAB PO SCH (11:25)
[2022-11-17] MEDS: CLOPIDOGREL BISULFATE 75 MG TAB PO SCH (11:26)
--- NOTE | 2022-11-17 17:11 | Neurology Progress Note ---
Date of Service November 17, 2022 Assessment & Plan (1) Acute CVA (cerebrovascular accident): Plan: Impression: The patient had sudden onset right lower extremity weakness, and was brought to emergency department, and received TNKase. Since then, his neurological deficit has been resolved almost completely. Brain MRI did not show any hemorrhagic conversion but left frontal, parietal, and subcortical multiple small ischemic strokes. Most of lesions were in MCA territory but also there was a acute ischemic lesion in JOSE territory. The most likely mechanism of stroke is atheroembolism. The patient has significant atheromatous plaques of internal carotid arteries with moderate stenosis of left internal carotid artery. Telemetry monitoring has been showing sinus rhythm. His blood pressure has been still high. Repeat HCT is negative for hemorrhagic conversion. Plan/recommendations: Continue on aspirin 81 mg with Plavix 75 mg daily without bolus. We like to keep patient on double antiplatelet treatment for 3 weeks, then one of antiplatelet agent can be stopped. Based on presumptive mechanism of atheroembolism, we increased Lipitor dosage to 80 mg at bedtime. Echocardiogram.--reviewed There is no neurological contraindication for DVT prophylaxis. We should gradually lower blood pressure with goal blood pressure of below 130/80. There is no indication for intervention of moderate left internal carotid artery stenosis. The patient should get follow-up carotid ultrasound studies in six months. We should keep blood sugar within normal range. Physical therapy and Occupational. The patient is neurologically stable to discharge home tomorrow. Follow-up with neurology clinic. I have contacted with [facility] neurology to set up a follow-up appointment in clinic. (2) Hyperlipidemia: Plan: Impression: The patient has been on Lipitor 40 mg daily, for long history of hyperlipidemia. He reports that he has been compliant. Plan/recommendations: As seen above. (3) History of colon cancer: Plan: Impression: The patient was diagnosed with colon cancer in 2014 and he has been in remission. (4) Diabetes mellitus, type 2: Plan: Impression: The patient reports compliance with treatment. He has no obvious symptoms to suggest diabetic peripheral polyneuropathy. (5) HTN (hypertension): Plan: Impression: The patient has long history of hypertension on treatment. On admission, blood pressure was significantly elevated. Recommendations and plan: As seen above. Admission and Anticipated Discharge Date Admission Date: November 16, [address] was unremarkable without hemorrhagic conversion and the patient was transferred to telemetry bed. Overall, he has been doing well. He was ambulating without difficulty. He believes that he is back to his baseline. He eats and sleeps well. Review of Systems Review of Systems: All systems reviewed & are unremarkable except as noted in Subjective Physical Exam Physical Exam: General Examination: Constitutional: Well developed person in no acute distress. HENT: Normal exam with inspection. CV: Hearth rhythm is regular. Neck: Supple, no carotid bruits. Lungs: Non-labored and comfortable breathing. Abdomen: Soft, non-tender, non-distended. Skin: No rash or ecchymosis. Extremities: No edema or cyanosis NEUROLOGICAL EXAMINATION: Mental Status: Alert and oriented to place, person and time. Cranial Nerves: II-XII are intact except bilateral SNHI. No nystagmus. Funduscopy: Normal looking optic discs. Motor: 5/5 in all extremities without asymmetry. Tone: Normal without spasticity or rigidity. Sensory: Intact to all sensory modalities. Coordination: No dysmetria with FTN testing. Speech: Fluent. Comprehension is intact. Gait: Not assessed. DTRs: 2- all symmetrically. No Babinsky. Musculoskeletal: Normal muscle bulk, no atrophy. Results & Data ([facility]) Vital Signs (Past 12 Hours) Vital Signs Temp Pulse Pulse Resp BP BP Pulse Ox 11/17/22 13:06 36.8 C 68 18 181/84 H 95 11/17/22 11:10 67 20 177/96 H 95 11/17/22 07:00 70 11/17/22 10:00 66 18 94 11/17/22 10:00 174/91 H 11/17/22 09:52 71 17 93 11/17/22 09:52 168/99 H 11/17/22 09:45 67 13 96 11/17/22 09:09 36.8 C 71 17 156/94 H 93 11/17/22 08:09 73 15 188/111 H 94 11/17/22 07:09 67 14 152/84 H 94 11/17/22 06:09 36.9 C 69 16 172/97 H 94 11/17/22 05:09 36.9 C 66 16 133/84 93 O2 Del Method 11/17/22 13:06 Room Air 11/17/22 11:10 11/17/22 07:00 11/17/22 10:00 02/05/23 10:00 11/17/22 09:52 11/17/22 09:52 11/17/22 09:45 11/17/22 09:09 Room Air 11/17/22 08:09 Room Air 11/17/22 07:09 Room Air 11/17/22 06:09 Room Air 11/17/22 05:09 Room Air Laboratory Results Laboratory Results - last 24 hr 11/16/22 11/17/22 11/17/22 21:12 09:52 09:52 WBC 5.44 RBC 3.95 L Hgb 12.7 L Hct 34.9 L MCV 88.4 MCH 32.2 MCHC 36.4 H RDW Std Deviation 37.9 RDW Coeff of Bonnie 11.7 Plt Count 216 MPV 9.3 L Immature Gran % (Auto) 0.2 Neut % (Auto) 67.6 Lymph % (Auto) 24.6 Will % (Auto) 6.4 Eos % (Auto) 0.6 Baso % (Auto) 0.6 Neut # (Auto) 3.68 Lymph # (Auto) 1.34 Will # (Auto) 0.35 Eos # (Auto) 0.03 Baso # (Auto) 0.03 Immature Gran # (Auto) 0.01 Sodium 136 Potassium 3.5 Chloride 103 Carbon Dioxide 27 Anion Gap 6 BUN 9 Creatinine 0.86 Est Cr Clr Drug Dosing 65.2 Est GFR ( Amer) 94.3 Est GFR (Non-Af Amer) 81.3 BUN/Creatinine Ratio 10.5 Glucose 164 H POC Glucose 128 H Estimat Average Glucose Hemoglobin A1c Calcium 8.5 Phosphorus 2.3 L Magnesium 1.8 Total Bilirubin 0.8 Direct Bilirubin 0.2 AST 18 ALT 12 Alkaline Phosphatase 75 Total Protein 5.9 L Albumin 3.6 Triglycerides 96 Cholesterol 152 LDL Cholesterol, Calc 77 VLDL Cholesterol, Calc 19 HDL Cholesterol 56 Cholesterol/HDL Ratio 2.7 11/17/22 11/17/22 11/17/22 09:52 11:23 16:46 WBC RBC Hgb Hct MCV MCH MCHC RDW Std Deviation RDW Coeff of Bonnie Plt Count MPV Immature Gran % (Auto) Neut % (Auto) Lymph % (Auto) Will % (Auto) Eos % (Auto) Baso % (Auto) Neut # (Auto) Lymph # (Auto) Will # (Auto) Eos # (Auto) Baso # (Auto) Immature Gran # (Auto) Sodium Potassium Chloride Carbon Dioxide Anion Gap BUN Creatinine Est Cr Clr Drug Dosing Est GFR ( Amer) Est GFR (Non-Af Amer) BUN/Creatinine Ratio Glucose POC Glucose 145 H 108 H Estimat Average Glucose Pending Hemoglobin A1c Pending Calcium Phosphorus Magnesium Total Bilirubin Direct Bilirubin AST ALT Alkaline Phosphatase Total Protein Albumin Triglycerides Cholesterol LDL Cholesterol, Calc VLDL Cholesterol, Calc HDL Cholesterol Cholesterol/HDL Ratio Diagnostic Findings Chest X-Ray 11/16/22 07:32 XR chest 1V portable HISTORY: 82 years-old Male neuro deficit, acute stroke suspected acute strokelike symptoms COMPARISON: Chest CT 08/22/2015 TECHNIQUE: AP view of the chest FINDINGS: Cardiac mediastinal and hilar silhouettes are within normal limits. No pneumothorax, pleural effusion, airspace consolidation or overt pulmonary edema. Degenerative changes of the shoulders and spine. IMPRESSION: No acute process. ACT 112: Negative or not required by law. The above report was generated using voice recognition software. It may contain grammatical, syntax or spelling errors. Electronically signed by: Mason Muhammad M.D. 11/16/2022 8:[address] 11/16/22 07:32 CT angio head w con, CT angio neck with con, CT head/brain wo con CLINICAL HISTORY: 82 years-old Male with neuro deficit, acute stroke suspected. Acute strokelike symptoms COMPARISON STUDY: None TECHNIQUE: Unenhanced axial CT scan of the brain is performed. Subsequently, following the IV administration of 120 cc of Optiray, CT angiogram of the head and neck was performed from the aortic arch to the skull apex. Images are reviewed in the axial, sagittal, and coronal planes. 3-D MIPS images are created and assessed. IV contrast was administered without complication. All measurements were obtained according to NASCET criteria. A dose lowering technique was utilized adhering to the principles of ALARA. CT DOSE: 1152.37 mGy.cm FINDINGS: CT BRAIN: There is no acute intracranial hemorrhage, hydrocephalus, intracranial mass, or acute territorial infarct. There is asymmetric prominence of the extra-axial space lateral to left frontal hemisphere with CSF attenuation measuring up to 4 mm on image 18 series 2. Rightward midline shift of 4 mm may be a chronic finding. Involutional changes with chronic microvascular ischemic disease. There is an ill-defined 1.4 x 1.1 cm area of decreased attenuation within the left internal capsule/lentiform nucleus distribution on image 12 series 2. There is no abnormal intra-axial or extra-axial enhancement. Trace right mastoid effusion. Left mastoid air cells are clear. Prior bilateral lens repair. No calvarial fracture. Paranasal sinuses are clear. CT ANGIOGRAM OF THE HEAD AND NECK: Three-vessel morphology of the thoracic aortic arch. Patency of the innominate and imaged subclavian arteries. Common carotid arteries are patent. Moderate atherosclerotic plaque of the left carotid bulb and proximal left ICA with less than 50% stenosis. Moderate to extensive atherosclerotic plaque of the left carotid bulb and proximal left ICA results in 60% stenosis. The bilateral anterior and middle cerebral arteries are also patent. The vertebrobasilar system and posterior cerebral arteries are widely patent. There is no aneurysm, high-grade stenosis, or proximal branch occlusion identified. Dural sinuses appear patent. Lung apices are generally clear. Unremarkable soft tissues. Degenerative changes of the cervical spine. IMPRESSION: 1. No acute intracranial hemorrhage or acute territorial infarct identified. 2. There is an ill-defined 1.4 cm focus of decreased attenuation within the left internal capsule/lentiform nucleus suggestive of an age-indeterminate lacunar infarct. 3. 60% stenosis of the proximal cervical segment left ICA secondary to atherosclerosis. 4. Otherwise unremarkable CTA of the head and neck. 5. 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 ACT 112: Negative or not required by law. The above report was generated using voice recognition software. It may contain grammatical, syntax or spelling errors. Electronically signed by: Mason Muhammad M.D. 11/16/2022 8:29 AM Head CTA 11/16/22 07:32 CT angio head w con, CT angio neck with con, CT head/brain wo con CLINICAL HISTORY: 82 years-old Male with neuro deficit, acute stroke suspected. Acute strokelike symptoms COMPARISON STUDY: None TECHNIQUE: Unenhanced axial CT scan of the brain is performed. Subsequently, following the IV administration of 120 cc of Optiray, CT angiogram of the head and neck was performed from the aortic arch to the skull apex. Images are reviewed in the axial, sagittal, and coronal planes. 3-D MIPS images are created and assessed. IV contrast was administered without complication. All measurements were obtained according to NASCET criteria. A dose lowering technique was utilized adhering to the principles of ALARA. CT DOSE: 1152.37 mGy.cm FINDINGS: CT BRAIN: There is no acute intracranial hemorrhage, hydrocephalus, intracranial mass, or acute territorial infarct. There is asymmetric prominence of the extra-axial space lateral to left frontal hemisphere with CSF attenuation measuring up to 4 mm on image 18 series 2. Rightward midline shift of 4 mm may be a chronic finding. Involutional changes with chronic microvascular ischemic disease. There is an ill-defined 1.4 x 1.1 cm area of decreased attenuation within the left internal capsule/lentiform nucleus distribution on image 12 series 2. There is no abnormal intra-axial or extra-axial enhancement. Trace right mastoid effusion. Left mastoid air cells are clear. Prior bilateral lens repair. No calvarial fracture. Paranasal sinuses are clear. CT ANGIOGRAM OF THE HEAD AND NECK: Three-vessel morphology of the thoracic aortic arch. Patency of the innominate and imaged subclavian arteries. Common carotid arteries are patent. Moderate atherosclerotic plaque of the left carotid bulb and proximal left ICA with less than 50% stenosis. Moderate to extensive atherosclerotic plaque of the left carotid bulb and proximal left ICA results in 60% stenosis. The bilateral anterior and middle cerebral arteries are also patent. The vertebrobasilar system and posterior cerebral arteries are widely patent. There is no aneurysm, high-grade stenosis, or proximal branch occlusion identified. Dural sinuses appear patent. Lung apices are generally clear. Unremarkable soft tissues. Degenerative changes of the cervical spine. IMPRESSION: 1. No acute intracranial hemorrhage or acute territorial infarct identified. 2. There is an ill-defined 1.4 cm focus of decreased attenuation within the left internal capsule/lentiform nucleus suggestive of an age-indeterminate lacunar infarct. 3. 60% stenosis of the proximal cervical segment left ICA secondary to atherosclerosis. 4. Otherwise unremarkable CTA of the head and neck. 5. 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 ACT 112: Negative or not required by law. The above report was generated using voice recognition software. It may contain grammatical, syntax or spelling errors. Electronically signed by: Mason Muhammad M.D. 11/16/2022 8:29 AM Neck CTA 11/16/22 07:32 CT angio head w con, CT angio neck with con, CT head/brain wo con CLINICAL HISTORY: 82 years-old Male with neuro deficit, acute stroke suspected. Acute strokelike symptoms COMPARISON STUDY: None TECHNIQUE: Unenhanced axial CT scan of the brain is performed. Subsequently, following the IV administration of 120 cc of Optiray, CT angiogram of the head and neck was performed from the aortic arch to the skull apex. Images are reviewed in the axial, sagittal, and coronal planes. 3-D MIPS images are created and assessed. IV contrast was administered without complication. All measurements were obtained according to NASCET criteria. A dose lowering technique was utilized adhering to the principles of ALARA. CT DOSE: 1152.37 mGy.cm FINDINGS: CT BRAIN: There is no acute intracranial hemorrhage, hydrocephalus, intracranial mass, or acute territorial infarct. There is asymmetric prominence of the extra-axial space lateral to left frontal hemisphere with CSF attenuation measuring up to 4 mm on image 18 series 2. Rightward midline shift of 4 mm may be a chronic finding. Involutional changes with chronic microvascular ischemic disease. There is an ill-defined 1.4 x 1.1 cm area of decreased attenuation within the left internal capsule/lentiform nucleus distribution on image 12 series 2. There is no abnormal intra-axial or extra-axial enhancement. Trace right mastoid effusion. Left mastoid air cells are clear. Prior bilateral lens repair. No calvarial fracture. Paranasal sinuses are clear. CT ANGIOGRAM OF THE HEAD AND NECK: Three-vessel morphology of the thoracic aortic arch. Patency of the innominate and imaged subclavian arteries. Common carotid arteries are patent. Moderate atherosclerotic plaque of the left carotid bulb and proximal left ICA with less than 50% stenosis. Moderate to extensive atherosclerotic plaque of the left carotid bulb and proximal left ICA results in 60% stenosis. The bilateral anterior and middle cerebral arteries are also patent. The vertebrobasilar system and posterior cerebral arteries are widely patent. There is no aneurysm, high-grade stenosis, or proximal branch occlusion identified. Dural sinuses appear patent. Lung apices are generally clear. Unremarkable soft tissues. Degenerative changes of the cervical spine. IMPRESSION: 1. No acute intracranial hemorrhage or acute territorial infarct identified. 2. There is an ill-defined 1.4 cm focus of decreased attenuation within the left internal capsule/lentiform nucleus suggestive of an age-indeterminate lacunar infarct. 3. 60% stenosis of the proximal cervical segment left ICA secondary to atherosclerosis. 4. Otherwise unremarkable CTA of the head and neck. 5. 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 ACT 112: Negative or not required by law. The above report was generated using voice recognition software. It may contain grammatical, syntax or spelling errors. Electronically signed by: Mason Muhammad M.D. 11/16/2022 8:29 AM Brain MRI 11/16/22 10:16 MR brain wo/w con HISTORY: 82 years-old Male CVA s/p TPA acute strokelike symptoms COMPARISON: Head CT, CTA head and neck of same day TECHNIQUE: Multiplanar multisequence MRI of the brain was obtained both with and without the use of 7 cc Gadavist FINDINGS: There are several small foci of restricted diffusion within the superior left frontal parietal lobes to the vertex measuring up to 1.6 cm which are predominantly cortically based and also within the subcortical white matter. Probable additional punctate focus within the periventricular left frontal lobe on image 14 series 4. These foci demonstrate decreased signal on ADC map with increased T2/FLAIR signal and minimal cortical enhancement of the left parietal lobe on image 92 series 11. Additional subtle cortical enhancement of the left frontal lobe (please see bookmarks). No acute or subacute territorial infarct. Midline structures are unremarkable. Degenerative changes of the cervical spine. No acute intracranial hemorrhage, midline shift, hydrocephalus or intracranial mass. Asymmetry within the extra-axial space adjacent to the left cerebral hemisphere redemonstrated measuring up to approximately 8 mm following CSF signal on all sequences suggestive of a subdural hygroma. No acute extra-axial hemorrhage. Involutional changes with moderate chronic microvascular ischemic disease. Probable chronic basal ganglia lacunar infarcts. Cerebral venous sinuses and major arterial flow voids appear patent. Prior bilateral lens repair. The skull and soft tissues are unremarkable. Trace mastoid effusions. Minimal mucosal thickening of the paranasal sinuses. IMPRESSION: 1. Small acute to subacute infarcts of the superior left frontal parietal lobes measure up to approximately 1.5 cm 2. Involutional changes with chronic microvascular ischemic disease. 3. Subtle cortical based enhancement of the left frontal and parietal lobes may be related to the aforementioned infarcts. As a precautionary measure, a 2 month follow-up brain MRI recommended. ACT 112: Negative or not required by law. The above report was generated using voice recognition software. It may contain grammatical, syntax or spelling errors. Electronically signed by: Mason Muhammad M.D. 11/16/2022 12:[address] 11/17/22 09:00 CT SCAN OF THE BRAIN WITHOUT IV CONTRAST CLINICAL HISTORY: Stroke status post TPA. COMPARISON STUDY: CT and MRI of the brain dated 11/16/2022. TECHNIQUE: Unenhanced axial CT scan of the brain is performed from the vertex to the skull base. A dose lowering technique was utilized adhering to the principles of ALARA. CT DOSE: 614.27 mGy.cm FINDINGS: Brain parenchyma: There is age-related involutional change noting mild to m oderate subcortical and periventricular microangiopathic disease. There is no hemorrhage, mass effect, or evidence of acute territorial ischemia by CT criteria. A chronic lacunar infarct is noted in the right basal ganglia. A low- attenuation focus in the left basal ganglia is unchanged. Boyd-white matter differentiation is preserved. Prominent cerebrospinal fluid along the left convexity versus a small hygroma is unchanged. No extra-axial hemorrhage is seen. Ventricles, sulci, cisterns: Prominent secondary to involutional change. Intracranial vasculature: There is atherosclerotic calcification of the cavernous carotid arteries. Calvarium: Unremarkable. Sinuses and mastoids: The visualized paranasal sinuses are clear. The mastoid air cells are well pneumatized. Orbits: The bony orbits are grossly intact. There are bilateral ocular lens implants. IMPRESSION: 1. There is no hemorrhage, mass effect, or evidence of acute territorial ischemia by CT criteria. 2. Tiny infarcts seen on yesterday's MRI are not visualized by CT. There is no evidence of hemorrhagic conversion. 3. Prominent cerebral spinal fluid versus a small hygroma along the left convexity is unchanged. ACT 112: Negative or not required by law. Electronically signed by: Costa Joseph M.D. 11/17/2022 9:46 AM
--- NOTE | 2022-11-17 17:27 | Billing Data ---
Date of Service November 17, 2022 Coding Level of Care Code 03674 SUB INP/OBS CARE
[2022-11-17] MEDS ORDERED: LABETALOL HCL IV 5 MG/ML 20ML IV STA (18:46)
[2022-11-17] MEDS ORDERED: LABETALOL HCL IV 5 MG/ML 20ML IV PRN (18:47)
--- NOTE | 2022-11-17 19:28 | CT Scan Report ---
CT SCAN OF THE BRAIN WITHOUT IV CONTRAST CLINICAL HISTORY: Change in mental status. Stroke status post TPA. COMPARISON STUDY: CT of the brain performed earlier the same day 11/17/2022. CT and MRI of the brain d ated 11/16/2022. TECHNIQUE: Unenhanced axial CT scan of the brain is performed from the vertex to the skull base. A do se lowering technique was utilized adhering to the principles of ALARA. CT DOSE: 537.48 mGy.cm FINDINGS: Brain parenchyma: There is age-related involutional change noting mild to moderate subcortical and pe riventricular microangiopathic disease. There is no hemorrhage, mass effect, or evidence of acute ter ritorial ischemia by CT criteria. A chronic lacunar infarct is noted in the right basal ganglia. A lo w-attenuation focus in the left basal ganglia is unchanged. Boyd-white matter differentiation is pres erved. Prominent cerebrospinal fluid along the left convexity versus a small hygroma is unchanged. No extra-axial hemorrhage is seen. Ventricles, sulci, cisterns: Prominent secondary to involutional change. Intracranial vasculature: There is atherosclerotic calcification of the cavernous carotid arteries. Calvarium: Unremarkable. Sinuses and mastoids: The visualized paranasal sinuses are clear. The mastoid air cells are well pneu matized. Orbits: The bony orbits are grossly intact. There are bilateral ocular lens implants. IMPRESSION: 1. There is no hemorrhage, mass effect, or evidence of acute territorial ischemia by CT criteria. No change from today's earlier examination. 2. Tiny infarcts seen on yesterday's MRI are not visualized by CT. There is no evidence of hemorrhagi c conversion. 3. Prominent cerebral spinal fluid versus a small hygroma along the left convexity is unchanged. ACT 112: Negative or not required by law. Electronically signed by: Costa Joseph M.D. 11/17/2022 7:26 PM
[2022-11-17] MEDS ORDERED: METOPROLOL TARTRATE 1 MG/ML VIAL IV STA (20:51)
[2022-11-17] MEDS ORDERED: HALOPERIDOL LACTATE 5 MG/ML 1 ML VIAL IM STA ×2 (21:26→22:15)
[2022-11-18 07:11] LABS: Basophils # (auto) 0.03 K/uL (0-0.2); Basophils % (auto) 0.6 %; Eosinophils # (auto) 0.05 K/uL (0-0.50); Eosinophils % (auto) 0.9 %; Hemoglobin 12.3 g/dl (14.0-18.0); Immature Granulocytes # (auto) 0.01 K/uL (0.01-0.20); Immature Granulocytes % (auto) 0.2 %; Lymphocytes # (auto) 1.78 K/uL (1.2-3.4); Lymphocytes % (auto) 33.1 %; Mean Corpuscular Hemoglobin 32.6 pg (25.0-34.0); Mean Corpuscular Hgb Conc 36.2 g/dL (32.0-36.0); Mean Corpuscular Volume 90.2 fL (80.0-100.0); Mean Platelet Volume 9.8 fL (9.4-12.4); Monocytes # (auto) 0.42 K/uL (0.11-0.59); Monocytes % (auto) 7.8 %; Neutrophils # (auto) 3.08 K/uL (1.40-6.50); Neutrophils % (auto) 57.4 %; Platelet Count 221 K/uL (130-400); RDW Coefficient of Variation 11.8 % (11.5-14.5); RDW Standard Deviation 38.5 fL (36.4-46.3); Red Blood Count 3.77 M/uL (4.70-6.10); White Blood Count 5.37 K/ul (4.8-10.8)
[2022-11-18 07:26] LABS: Estimated Average Glucose 120 mg/dl; Hemoglobin A1C 5.8 % (4.5-5.6)
[2022-11-18 07:32] LABS: Albumin Level 3.6 gm/dl (3.4-5.0); BUN Creatinine Ratio 15.4 (10-20); Bilirubin Direct 0.2 mg/dl (0-0.2); Bilirubin,Total 0.8 mg/dl (0.2-1.0); Calcium 9.1 mg/dl (8.5-10.1); Creatinine Clr Calc Pharmacy 53.9 ml/min; Est GFR (African American) 77.7 ml/min; Magnesium 2.1 mg/dl (1.7-2.4); Phosphorus 3.2 mg/dl (2.5-4.9); Potassium 3.1 mmol/L (3.5-5.1)
[2022-11-18] MEDS ORDERED: POTASSIUM CHLORIDE CRTAB 20 MEQ TABCR PO ONE (08:08)
[2022-11-18] MEDS: amLODIPine BESYLATE 5 MG TAB PO SCH (08:16)
[2022-11-18] MEDS: METOPROLOL TARTRATE 25 MG TAB PO SCH ×2 (08:16→21:23)
--- NOTE | 2022-11-18 09:08 | Consultation ---
Date of Consultation November 18, 2022 Assessment & Plan (1) Carotid stenosis, bilateral: Pt discussed with Dr Rice. Pt with L hemispheric CVA, and L ICA stenosis of approx 50%. This requires only medical management. Also noted on imaging is R ICA stenosis of over 80%. This does put pt at increased risk of R hemipheric CVA. Recommend pt follow up in office in 4-6 weeks to discuss further. Pt and his are agreeable to this plan. Please call if needed. History of Present Illness Reason for Consultation: ICA stenosis Attending Physician: Daisy Rajput MD History of Present Illness 82 yo m with hx of DMII, HTN, colon ca, hyperlipidemia, arthritis, admitted with stroke like sx, seen in consultation today for ICA stenosis noted on imaging. Pt states no prior knowledge of ICA stenosis. States he awoke from bed and staggered to bathroom, then his R leg gave out and he fell to the floor. States his R arm and leg were weak and numb. Denies any L sided sx. Upon arrival to ED, pt did undergo tPA administration, with resolution of sx. Imaging demonstrated L hemispheric CVA. Pt denies RING, fever, recent illness, chest pain, SOB, abd pain, N/V, rest pain, claudication, amaurosis, facial droop, confusion, other complaints. CTA neck demonstrates about 50% stenosis of L ICA and over 80% stenosis R ICA. Allergies Allergy/AdvReac Type Severity Reaction Status Date / Time No Known Allergies Allergy NONE Verified 11/11/22 11:49 Home Medications Medication Instructions Recorded Confirmed Type aspirin 81 mg tablet,delayed 81 mg PO QAM 03/04/19 11/11/22 History release vmujyvca-rnksnhsk-bxxxs acid 400 1 tab PO QAM 03/04/19 04/02/22 History mcg-vit K 20 mcg-lycop 300 mcg tablet (One-A-Day Men's Multivitamin) atorvastatin 40 mg tablet 40 mg PO HS #90 tabs 12/14/21 11/11/22 Rx pantoprazole 40 mg tablet,delayed 40 mg PO QAM 02/26/22 11/11/22 History release metformin 500 mg tablet 500 mg PO QAM #90 tabs 04/16/22 11/11/22 Rx potassium chloride 20 mEq 20 meq PO QAM #90 tabs 08/09/22 11/11/22 Rx tablet,extended release lisinopril 20 1 tab PO QAM #90 tabs 08/27/22 11/11/22 Rx mg-hydrochlorothiazide 25 mg tablet amlodipine 5 mg tablet 5 mg PO DAILY #90 tabs 11/11/22 11/11/22 Rx Patient History Medical History (Updated 11/18/22 @ 09:05 by Nicci Wesley PA-C) Carotid stenosis, bilateral Colon cancer 2015--sx Diabetes mellitus, type 2 Glaucoma Hearing deficit History of colon cancer HTN (hypertension) Hyperlipidemia Hypokalemia PT NOT SURE CURRENT LEVEL Osteoarthritis Tubular adenoma of colon HX Zenker's diverticulum Surgical History History of colonoscopy History of esophagogastroduodenoscopy (EGD) History of eye surgery left eye History of left cataract extraction (~08/2021) History of right cataract extraction History of tooth extraction Status post laparoscopic colectomy 2014 transverse colon mass Family History Mother Cancer Father Cancer Other Coronary heart disease No family history of adverse response to anesthesia Denies family history of Ovarian cancer Prostate cancer Myocardial infarction Breast cancer Colorectal cancer Social History Smoking Status: Former smoker Tobacco Type: Cigarettes Age Started Using Tobacco: 14; Age Quit Using Tobacco: 24; packs per day: 1; Second Hand Exposure: No; Hx Alcohol Use: Yes Alcohol type: beer Alcohol Intake Frequency: 4 or More x per/Week Alcohol Intake Frequency Comment: a couple cans of beer per day Hx Substance Use: No Preferred Language: Azeri Communication Ability: Effective Visual Impairment: No Limitations Hearing Ability: Use of Hearing Aid 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 Required: No Beliefs That Will Affect Care: None marital status: Current Living Situation: Spouse current occupational status: retired 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 Feels Safe at Home: Yes Childhood Exposure to Second-Hand Smoke: Yes Dental Care, Regularly: Yes Physical Activity Frequency: Does not Exercise Seatbelt Use: always Sunscreen Use: Yes Assistive Devices: Hearing Aid - Bilateral Review of Systems Review of Systems: All systems reviewed & are unremarkable except as noted in HPI & below Physical Exam Constitutional: WD/WN, vitals as above healthy appearing, cooperative and comfortable; not in distress ENMT: Ears: + hearing impairment (severe) Neck: trachea midline Respiratory: normal respiratory effort, lungs clear to auscultation Auscultation: + diminished lung sounds Cardiovascular: Rate/Rhythm: regular rate and regular rhythm Vessels: femoral pulses present, posterior tibial pulses present, dorsalis pedis pulses present and radial pulses present; no carotid bruit Extremities: normal capillary refill; no edema Gastrointestinal (Abdomen): Inspection/Auscultation: abdomen normal to inspection and normal bowel sounds Percussion/Palpation: abdomen soft; abdomen nontender Musculoskeletal: no cyanosis or clubbing, extremities motor strength 5/5 Skin: no rashes, warm and dry Neurologic: moves all extremities and awake; no focal motor deficits and not confused Psychiatric: A+Ox3, euthymic affect Results & Data ([facility]) Vital Signs (Past 12 Hours) Vital Signs Temp Pulse Pulse Resp BP BP Pulse Ox 11/18/22 07:55 37.0 C 66 20 170/85 H 94 11/18/22 02:11 37.0 C 69 18 175/84 H 92 11/17/22 22:00 79 11/17/22 21:04 76 215/115 H O2 Del Method 11/18/22 07:55 Room Air 11/18/22 02:11 Room Air 11/17/22 22:00 11/17/22 21:04
[2022-11-18] MEDS: INSULIN ASPART PER UNIT SC SCH ×4 (09:10→21:21)
[2022-11-18] MEDS: ATORVASTATIN 40 MG TAB PO SCH (09:11)
[2022-11-18] MEDS: PANTOprazole 40 MG TAB PO SCH (09:12)
[2022-11-18] MEDS: CLOPIDOGREL BISULFATE 75 MG TAB PO SCH (09:12)
[2022-11-18] MEDS: ASPIRIN 81 MG ECTAB PO SCH (09:12)
[2022-11-18] MEDS: ENOXAPARIN INJ 30 MG/0.3 ML SYR SQ SCH (09:16)
[2022-11-18] MEDS: lisinopril 20 MG TAB PO SCH (11:06)
[2022-11-18] MEDS ORDERED: hydroCHLOROthiazide 25 MG TAB PO SCH (17:30)
--- NOTE | 2022-11-18 17:32 | Hospitalist Progress Note ---
Date of Service November 18, 2022 Assessment & Plan (1) Acute CVA (cerebrovascular accident): Plan: Malvin Higgins is an 82-year-old with PMH of DM2, HTN, HLD, h/o colon cancer who presented due to right-sided weakness. Was found to have CVA, now s/p TNKase. Left Hemispheric CVA Right LE weakness, symptoms resolved shortly after administration of TNKase (11/16 at 09:09). MRI with several small acute/subacute infarcts in L MCA territory. Neck CTA with 60% stenosis of proximal cervical segment of left ICA as well as well as bilateral carotid atherosclerotic plaques. --> suspect thromboembolic mechanism of CVA 11/14 to left ICA disease - care per ICU (monitoring s/p TNKase), Neurology consulted as well - consulted vascular surgery for eval of symptomatic ICA disease - appreciate recs: Recommending only medical management currently, no procedural intervention - repeat CT head w/o contrast this AM without abnormalities/hemorrhagic conversion - has required several doses of Labetalol for SBP 180s - continue with Lopressor 12.5mg PO BID 11/17/22, see htn below - secondary prevention: - continue daily baby ASA and Plavix 75mg, after 3 weeks transition to monotherapy, per Neurology (started on 11/17/2022) -Continue atorvastatin 80 mg - h/o T2DM, last A1c 5.8, no changes in home regimen -PT/OT recommending inpatient rehab, awaiting placement HTN Remains hypertensive to 170/80s -Continue Lopressor 12.5 mg twice daily started by Dr. Kowalski -Restart 25 mg of hydrochlorothiazide daily today -Continue home lisinopril, amlodipine - acute goal BP <180/110, with chronic goal 130/80 HLD LDL 84, increased Atorvastatin to 80mg as above. - repeat fasting lipids in 3 months - per PCP T2DM A1c 5.8 on 11/11. Well-controlled with diet/Metformin - Hold metformin while hospitalized, utilize SSI GERD Continue home Protonix DVT ppx: chemoppx contraindicated in the setting of TNKase Diet: Heart-healthy/DM2 Dispo: downgrade to med/surg, PT/OT evals pending CODE STATUS: Full (2) HTN (hypertension): (3) Hyperlipidemia: (4) Diabetes mellitus, type 2: (5) GERD (gastroesophageal reflux disease): Admission and Anticipated Discharge Date Admission Date: November 16, 2022 Supervising Physician Co-Signing Physician Notes Resident Physician Supervision Note: I independently interviewed and examined the patient and verified the hirsch history and physical, reviewed labs and image studies and agree with resident findings and care plan. Subjective Patient seen at bedside this morning. Unfortunately it seems the patient became delirious overnight and was agitated. He was given IM Haldol which seemed to have helped his symptoms improved. Patient seems to be back at baseline this morning and very much alert and oriented x3. Patient is pleasant. is also at bedside which seem to have helped his delirium improve as well. Denies any new complaints today. Overall seems to be recovering well from his CVA and has required the majority of his function they lost when he had the stroke. Eating and drinking without difficulty. No other complaints this time Review of Systems Review of Systems: All systems reviewed & are unremarkable except as noted in HPI & below Physical Exam Constitutional: WD/WN, vitals as above Eyes: + anicteric sclerae Neck: normal visual inspection Respiratory: normal respiratory effort, lungs clear to auscultation Cardiovascular: Rate/Rhythm: regular rate and regular rhythm Extremities: no edema Gastrointestinal (Abdomen): Inspection/Auscultation: abdomen normal to inspection Percussion/Palpation: abdomen soft; abdomen nontender Musculoskeletal: Head/Neck/Chest: normocephalic and head atraumatic Extremities: extremities normal to inspection 5 out of 5 muscle strength in the upper extremities bilaterally. 4 out of 5 muscle strength in lower extremities bilaterally. Skin: no rashes, warm and dry Neurologic: CN's II-XI intact bilaterally and moves all extremities Psychiatric: A+Ox3, euthymic affect Results & Data Results & Data ([facility]) Vital Signs (Past 12 Hours) Vital Signs Temp Pulse Pulse Resp BP Pulse Ox O2 Del Method 11/18/22 15:52 37.0 C 65 20 170/85 H 95 Room Air 11/18/22 12:43 Room Air 11/18/22 08:00 61 11/18/22 10:37 36.9 C 64 17 154/89 H 97 Room Air 11/18/22 07:55 37.0 C 66 20 170/85 H 94 Room Air
[2022-11-19 06:42] LABS: Basophils # (auto) 0.04 K/uL (0-0.2); Basophils % (auto) 0.7 %; Eosinophils # (auto) 0.07 K/uL (0-0.50); Eosinophils % (auto) 1.3 %; Hematocrit (blood only) 37.2 % (42.0-52.0); Hemoglobin 13.2 g/dl (14.0-18.0); Immature Granulocytes # (auto) 0.01 K/uL (0.01-0.20); Immature Granulocytes % (auto) 0.2 %; Lymphocytes # (auto) 1.67 K/uL (1.2-3.4); Lymphocytes % (auto) 31.3 %; Mean Corpuscular Hemoglobin 31.7 pg (25.0-34.0); Mean Corpuscular Hgb Conc 35.5 g/dL (32.0-36.0); Mean Corpuscular Volume 89.4 fL (80.0-100.0); Mean Platelet Volume 9.9 fL (9.4-12.4); Monocytes % (auto) 9.4 %; Neutrophils # (auto) 3.05 K/uL (1.40-6.50); Neutrophils % (auto) 57.1 %; Platelet Count 222 K/uL (130-400); RDW Coefficient of Variation 11.7 % (11.5-14.5); RDW Standard Deviation 37.2 fL (36.4-46.3); Red Blood Count 4.16 M/uL (4.70-6.10); White Blood Count 5.34 K/ul (4.8-10.8)
[2022-11-19 07:48] LABS: Albumin Level 3.9 gm/dl (3.4-5.0); Bilirubin Direct 0.2 mg/dl (0-0.2); Calcium 9.2 mg/dl (8.5-10.1); Potassium 3.2 mmol/L (3.5-5.1)
[2022-11-19] MEDS ORDERED: POTASSIUM CHLORIDE CRTAB 20 MEQ TABCR PO STA (07:49)
[2022-11-19 07:54] LABS: BUN Creatinine Ratio 18.3 (10-20); Creatinine Clr Calc Pharmacy 60.3 ml/min; Est GFR (African American) 88.9 ml/min; Est GFR (Non-African American) 76.7 ml/min; Total Protein 6.8 gm/dl (6.0-8.3)
[2022-11-19] MEDS: METOPROLOL TARTRATE 25 MG TAB PO SCH ×2 (08:14→20:08)
[2022-11-19] MEDS: PANTOprazole 40 MG TAB PO SCH (08:15)
[2022-11-19] MEDS: CLOPIDOGREL BISULFATE 75 MG TAB PO SCH (08:15)
[2022-11-19] MEDS: lisinopril 20 MG TAB PO SCH (08:15)
[2022-11-19] MEDS: ATORVASTATIN 40 MG TAB PO SCH (08:15)
[2022-11-19] MEDS: ASPIRIN 81 MG ECTAB PO SCH (08:16)
[2022-11-19] MEDS: amLODIPine BESYLATE 5 MG TAB PO SCH (08:16)
[2022-11-19] MEDS: hydroCHLOROthiazide 25 MG TAB PO SCH (08:17)
[2022-11-19] MEDS: ENOXAPARIN INJ 30 MG/0.3 ML SYR SQ SCH (08:17)
[2022-11-19] MEDS: INSULIN ASPART PER UNIT SC SCH ×4 (08:18→20:21)
--- NOTE | 2022-11-19 18:22 | Hospitalist Progress Note ---
Date of Service November 19, 2022 Assessment & Plan (1) Acute CVA (cerebrovascular accident): Plan: Malvin Higgins is an 82-year-old with PMH of DM2, HTN, HLD, h/o colon cancer who presented due to right-sided weakness. Was found to have CVA, now s/p TNKase. Left Hemispheric CVA Right LE weakness, symptoms resolved shortly after administration of TNKase (11/16 at 09:09). MRI with several small acute/subacute infarcts in L MCA territory. Neck CTA with 60% stenosis of proximal cervical segment of left ICA as well as well as bilateral carotid atherosclerotic plaques. --> suspect thromboembolic mechanism of CVA 11/14 to left ICA disease - care per ICU (monitoring s/p TNKase), Neurology consulted as well - consulted vascular surgery for eval of symptomatic ICA disease - appreciate recs: Recommending only medical management currently, no procedural intervention - repeat CT head w/o contrast without abnormalities/hemorrhagic conversion - has required several doses of Labetalol for SBP 180s - continue with Lopressor 12.5mg PO BID 11/17/22, see htn below - secondary prevention: - continue daily baby ASA and Plavix 75mg, after 3 weeks transition to monotherapy, per Neurology (started on 11/17/2022) -Continue atorvastatin 80 mg - h/o T2DM, last A1c 5.8, no changes in home regimen -PT/OT recommending inpatient rehab, awaiting placement, case management to follow HTN Remains hypertensive to 160/80s -Continue Lopressor 12.5 mg twice daily started by Dr. Kowalski, consider increasing to 25 mg twice daily for tighter hypertensive control -Restart 25 mg of hydrochlorothiazide daily today -Continue home lisinopril, amlodipine - acute goal BP <180/110, with chronic goal 130/80 HLD LDL 84, increased Atorvastatin to 80mg as above. - repeat fasting lipids in 3 months - per PCP T2DM A1c 5.8 on 11/11. Well-controlled with diet/Metformin - Hold metformin while hospitalized, utilize SSI GERD Continue home Protonix DVT ppx: Lovenox Diet: Heart-healthy/DM2 Dispo: downgrade to med/surg, awaiting placement CODE STATUS: Full (2) HTN (hypertension): (3) Hyperlipidemia: (4) Diabetes mellitus, type 2: (5) GERD (gastroesophageal reflux disease): Admission and Anticipated Discharge Date Admission Date: November 16, 2022 Supervising Physician Co-Signing Physician Notes Resident Physician Supervision Note: I independently interviewed and examined the patient and verified the hirsch history and physical, reviewed labs and image studies and agree with resident findings and care plan. Subjective Patient seen at bedside this morning. No acute events reported overnight. No new complaints today. Awaiting placement. Review of Systems Review of Systems: per HPI Physical Exam Constitutional: WD/WN, vitals as above Eyes: + anicteric sclerae Neck: normal visual inspection Respiratory: normal respiratory effort, lungs clear to auscultation Cardiovascular: Rate/Rhythm: regular rate and regular rhythm Extremities: no edema Gastrointestinal (Abdomen): Inspection/Auscultation: abdomen normal to inspection Musculoskeletal: Head/Neck/Chest: normocephalic and head atraumatic Skin: no rashes, warm and dry Neurologic: moves all extremities Psychiatric: A+Ox3, euthymic affect Results & Data Results & [facility] ([facility]) Vital Signs (Past 12 Hours) Vital Signs Temp Pulse Pulse Resp BP Pulse Ox O2 Del Method 11/19/22 16:00 68 11/19/22 15:47 36.7 C 71 17 164/81 H 98 Room Air 11/19/22 08:00 66 11/19/22 10:54 36.8 C 70 17 162/76 H 96 Room Air 11/19/22 07:18 36.6 C 68 18 184/81 H 96 Room Air
[2022-11-20 07:45] LABS: Hematocrit (blood only) 36.9 % (42.0-52.0); Hemoglobin 13.5 g/dl (14.0-18.0); Mean Corpuscular Hemoglobin 32.5 pg (25.0-34.0); Mean Corpuscular Hgb Conc 36.6 g/dL (32.0-36.0); Mean Corpuscular Volume 88.7 fL (80.0-100.0); Mean Platelet Volume 9.8 fL (9.4-12.4); Platelet Count 235 K/uL (130-400); RDW Coefficient of Variation 11.7 % (11.5-14.5); RDW Standard Deviation 37.4 fL (36.4-46.3); Red Blood Count 4.16 M/uL (4.70-6.10); White Blood Count 5.42 K/ul (4.8-10.8)
[2022-11-20 07:58] LABS: BUN Creatinine Ratio 21.9 (10-20); Calcium 9.3 mg/dl (8.5-10.1); Creatinine Clr Calc Pharmacy 58.4 ml/min; Est GFR (African American) 85.6 ml/min; Est GFR (Non-African American) 73.8 ml/min; Magnesium 1.8 mg/dl (1.7-2.4); Potassium 3.4 mmol/L (3.5-5.1)
[2022-11-20] MEDS ORDERED: POTASSIUM CHLORIDE CRTAB 20 MEQ TABCR PO ONE (08:30)
[2022-11-20] MEDS: hydroCHLOROthiazide 25 MG TAB PO SCH (08:50)
[2022-11-20] MEDS: ASPIRIN 81 MG ECTAB PO SCH (08:52)
[2022-11-20] MEDS: PANTOprazole 40 MG TAB PO SCH (08:52)
[2022-11-20] MEDS: lisinopril 20 MG TAB PO SCH (08:52)
[2022-11-20] MEDS: amLODIPine BESYLATE 5 MG TAB PO SCH (08:53)
[2022-11-20] MEDS: CLOPIDOGREL BISULFATE 75 MG TAB PO SCH (08:53)
[2022-11-20] MEDS: ATORVASTATIN 40 MG TAB PO SCH (08:54)
[2022-11-20] MEDS: ENOXAPARIN INJ 30 MG/0.3 ML SYR SQ SCH (08:54)
[2022-11-20] MEDS: INSULIN ASPART PER UNIT SC SCH ×2 (08:55→12:32)
[2022-11-20] MEDS: METOPROLOL TARTRATE 25 MG TAB PO SCH (10:43)
--- NOTE | 2022-11-20 14:11 | Discharge Summary ---
Date of Service November 20, 2022 Admission HPI Per Admitting Provider Malvin Higgins is an 82-year-old with PMH of DM2, HTN, HLD, h/o colon cancer who presented due to right-sided weakness. Around 6:15AM this morning patient woke up and went to the bathroom. Once there he felt weak and was unable to return to bed. He had weakness of the right lower extremity as well as some reported tingling in his right hand. called EMS and he was brought in under stroke alert prior to arrival. Per telestroke neurologist, patient received TNKase in the Emergency Room. Was also given labetalol for BP control. Upon my evaluation patient was alert and conversing appropriately. He reported feeling better and already noticing some improvement in his extremities. Per RN in room, patient had drift in RUE and no physical ther strength prior to TNKase, both of which had resolved by the time of my evaluation. He denies RING, dizziness, vision changes, speech difficulty, CP, palp, n/v, abd pain, SOB, f/c, stool changes. CT Head/CTA Head & Neck: No acute intracranial hemorrhage or acute territorial infarct identified. There is an ill-defined 1.4 cm focus of decreased attenuation within the left internal capsule/lentiform nucleus suggestive of an age-indeterminate lacunar infarct. 60% stenosis of the proximal cervical segment left ICA secondary to atherosclerosis. Principal Diagnosis Status post CVA Discharge Exam Constitutional WD/WN, vitals as above Eyes + anicteric sclerae Neck normal visual inspection Respiratory normal respiratory effort, lungs clear to auscultation Cardiovascular Rate/Rhythm: regular rate and regular rhythm Extremities: no edema Gastrointestinal (Abdomen) Inspection/Auscultation: abdomen normal to inspection Percussion/Palpation: abdomen soft; abdomen nontender Musculoskeletal Head/Neck/Chest: normocephalic and head atraumatic Extremities: extremities normal to inspection Skin no rashes, warm and dry Neurologic CN's II-XI intact bilaterally and moves all extremities Psychiatric A+Ox3, euthymic affect Discharge Data Allergies Allergy/AdvReac Type Severity Reaction Status Date / Time No Known Allergies Allergy NONE Verified 11/11/22 11:49 Consultations 11/16/22 11:32 Consult Wedding Coordinator Routine Consult Neurology Routine 11/17/22 10:53 Consult Vascular Surgery Routine Ordered Studies 11/16/22 07:32 CT angio head w con Stat CT angio neck with con Stat CT head/brain wo con Stat 11/16/22 10:16 MRI Brain [MR brain wo/w con] Routine 11/17/22 09:00 CT head/brain wo con Routine 11/17/22 18:44 CT head/brain wo con Stat Hospital Course (1) Acute CVA (cerebrovascular accident): Malvin Higgins is an 82-year-old with PMH of DM2, HTN, HLD, h/o colon cancer who presented due to right-sided weakness. Was found to have CVA, now s/p TNKase. Left Hemispheric CVA Patient was evaluated in the hospital for concern of right lower extremity weakness. He had imaging that revealed a 1.4 cm focus of decreased attenuation within the left internal capsule of the brain indicating an infarction. Given this presentation, patient was a candidate for TNKase therapy and this was a dministered. Shortly after administration, patient's symptoms gradually improved and almost resolved entirely. Patient was placed in the ICU for observation status post TNKase administration. He was then transferred to the floor on day 2 of admission where he received physical therapy and Occupational Therapy. Physical therapy's initial recommendations for inpatient rehab, however, as the days progressed he received more physical therapy, he had began reaching his goals and was able to ambulate 300 feet with little to no assistance. For this reason, he was safe to be discharged home with home health and home PT. Additionally patient was started on DAPT for 3 weeks and neurology will make recommendations at a follow-up visit determining whether or not to take off the Plavix or the aspirin. Otherwise we increased his atorvastatin from 40 mg to 80 mg daily and added metoprolol 12.5 mg twice daily to his blood pressure regimen as his pressures were running very high on his chronic medications. Recheck at PCP follow-up visit. Otherwise all other medications were kept the same. HTN As above, patient was initially taken off of blood pressure medication for permissive hypertension in the setting of acute stroke, however, after home regimen was restarted, his pressures were still in the 160s to 170s over 80s. For this reason we added metoprolol tartrate 12.5 mg twice daily which at least by pressures down to the 150s over 80s. Please recheck at PCP follow-up visit HLD LDL 84, increased Atorvastatin to 80mg as above. - repeat fasting lipids in 3 months - per PCP T2DM A1c 5.8 on 11/11. Well-controlled with diet/Metformin - Considering low A1c and age - consider stopping metformin GERD Continue home Protonix Dispo: Discharge home with home health CODE STATUS: Full (2) HTN (hypertension): (3) Hyperlipidemia: (4) Diabetes mellitus, type 2: (5) GERD (gastroesophageal reflux disease): Total Time Total Time Spent Total Time Spent (In Minutes): 30 Discharge Plan Discharge Items Patient Disposition: Home - Home Health Services Reason For Visit: CVA Discharge Diagnosis: Status post CVA Activity: Per Instructions section Non-emergency contact: Primary Care Provider, Specialist and Neurologist Call non-emergency contact if: you have any medication questions Follow-up/Referrals: Bernarda Llanes CRNP [Primary Care Provider] - 12/02/22 2:00 pm Diet: Heart Healthy Addtl Attending Provider Instructions: You were seen in the hospital for weakness of the right half of your body and for this reason your had called an ambulance and brought you to the emergency department. While you are here a code stroke alert was called and we initiated our stroke protocol. CTA of the head and neck had revealed a 1.4 cm focus of decreased attenuation within the left internal capsule of the brain indicating an infarction AKA stroke. You were given TNKase, a blood clot buster, to stop the stroke from progressing and after this was initiated, your symptoms began progressively getting better. You are monitored in the ICU for the risk of bleeding and during this time your blood pressure medications were held. As the days went on, your symptoms continue to improve. You were evaluated by our physical therapist who initially recommended rehab but it got to the point you are able to walk 300 feet and for this reason they recommended that you were able to go home. For this reason we feel it is safe for you to be discharged. New medications: You are started on a medication called Plavix, and antiplatelet medication, to help reduce your risk of future stroke. The neurology team suggested that you continue this for 3 weeks in addition to your aspirin. Your Lipitor was also increased from 40 mg to 80 mg daily, a new prescription will be sent to the pharmacy. Lastly a blood pressure medication called metoprolol was added to his regimen. He was started on 12-1/2 mg twice a day for blood pressure. This prescription will also be sent to the pharmacy. Discuss these changes with your primary care provider at your follow-up appointment. Lifestyle changes: In terms of lifestyle changes, you are not restricted to any limitation on activity. I strongly encourage to get at least 150 minutes of aerobic exercise a week. As discussed this can include walking on an incline treadmill, going up stairs, or walking around the neighborhood preferably with a partner. Not only will this help prevent future stroke but will also help your quality of life in general. Follow-up appointments: We are going to set up follow-up appointments in regards to your primary care provider, vascular surgeon, and neurologist. Please expect phone calls from these offices to get your appointment set up. Is been a pleasure to be a part of your care and we wish you the best in both your health and recovery Pending Studies at Discharge: No Stand-Alone Forms: [facility] [employer], Smoking Cessation Medications and DC Order Prescriptions: New atorvastatin 40 mg Tablet 80 mg PO QAM 30 Days Qty: 60 2RF clopidogrel 75 mg Tablet 75 mg PO QAM 21 Days Qty: 21 0RF metoprolol tartrate 25 mg Tablet 12.5 mg PO BID Qty: 30 2RF Continued metformin 500 mg tablet 500 mg PO QAM Qty: 90 3RF potassium chloride 20 mEq tablet extended release 20 meq PO QAM Qty: 90 3RF lisinopril-hydrochlorothiazide 20-25 mg tablet 1 tab PO QAM Qty: 90 3RF amlodipine 5 mg tablet 5 mg PO DAILY Qty: 90 3RF Rx Instructions: for blood pressure aspirin 81 mg Tablet,Delayed Release (Dr/Ec) 81 mg PO QAM One-A-Day Men's Multivitamin 400-20-300 mcg Tablet 1 tab PO QAM pantoprazole 40 mg tablet,delayed release (DR/EC) 40 mg PO QAM Rx Instructions: Take 1 tablet by mouth once daily Discontinued atorvastatin 40 mg tablet 40 mg PO HS Qty: 90 3RF Discharge Orders: Discharge Order (Routine); Ordered 11/20/22 Ordered By: Cameron Stack/Other Patient Handouts: Managing Type 2 Diabetes, Stroke: Taking Medicines, Stroke: Self-Care, Discharge Instructions for Stroke, Stroke Self Care After, Stroke Stop Another Health Tips Admission Data Admit Date/Time: 11/16/22 10:16 Attending Provider: Daisy Rajput Admit Provider: Chester Calix Primary Care Provider: Bernarda Llanes Other Providers: Deyvi Montes ; Austyn Álvarez ; Rodger Florez ; Santos Rice ; [place] [facility] Other Interventions: Discharge Summary Assessment (RN) Last Done: 11/20/22 13:14 Supervising Physician Co-Signing Physician Notes Resident Physician Supervision Note: I independently interviewed and examined the patient and verified the hirsch history and physical, reviewed labs and image studies and agree with resident findings and care plan.
== END 2022-11-20 13:57 | disposition home health service (06) | DRG 63 ==
LOC: ED 07:22 → 1E 10:16 → SUATTDRO 10:16 → 1E 10:38 → 2W 11-17 12:51 → 2S 11-17 18:45